=== PATIENT | female | born 1955 | race Caucasian/White ===

== ENCOUNTER → 2017-11-28 11:53 | Outpatient (CLI) | payer OTHER, SELFPAY ==
--- NOTE | 2017-11-28 11:58 | US_ITS ---
STUDY: ULTRASOUND BREAST - RIGHT REASON FOR EXAM: Female, 61 years old. Abnormal screening mammogram. TECHNIQUE: Axial and longitudinal images of the RIGHT breast were performed with a high resolution ultrasound transducer. COMPARISON: Comparison is made with prior mammogram dated November 28, 2017 and outside examination dated May 24, 2017. FINDINGS: RIGHT Breast: There is an 8 mm x 6 mm x 5 mm hypoechoic irregular nodular density which is tolerated then wide adjacent o'clock position in the breast at 3 cm from nipple. A biopsy recommended. IMPRESSION: Suspicious 8 mm x 6 mm x 5 mm irregular nodule at the 7:00 position breast at 3 cm from the nipple. Biopsy is recommended. ASSESSMENT CATEGORY: BIRADS Category 4: Suspicious - Biopsy Should Be Considered. A letter regarding these results will be sent to the patient by the facility within 30 days. Electronically Signed: Bryan Aguila MD at 14:28 EST Tel [phone], Service support , STUDY: ULTRASOUND BREAST - LEFT REASON FOR EXAM: Female, 61 years old. Palpable mass in the left breast. Abnormal mammogram. TECHNIQUE: Axial and longitudinal images of the LEFT breast were performed with a high resolution ultrasound transducer. COMPARISON: Comparison is made with prior mammogram done earlier in the day. FINDINGS: LEFT Breast: There is evidence of a 1.3 cm x 1.1 cm x 2 cm irregular hypoechoic mass with posterior acoustical shadowing. The lesion is taller than it is wide. This is located at the 12:00 posterior breast at 3 cm from the nipple. A biopsy is recommended. US/Breast Limited Unilateral IMPRESSION: The palpable abnormality corresponds to a suspicious 1.3 cm x 2 cm x 1.1 cm mass at the 12:00 position the breast at 3 cm from nipple. A biopsy is recommended. ASSESSMENT CATEGORY: BIRADS Category 5: Highly Suggestive of Malignancy - Appropriate Action Should Be Taken. A letter regarding these results will be sent to the patient by the facility within 30 days. Electronically Signed: Bryan Aguila MD at 14:28 EST Tel [phone], Service support ,
--- NOTE | 2017-11-28 11:58 | HPBI_ITS ---
MAMMOGRAPHY - BILATERAL DIAGNOSTIC REASON FOR EXAM: Female, 61 years old. Lump in the upper outer quadrant of the left breast. PERTINENT HISTORY: Sister with breast cancer. TECHNIQUE: Digital bilateral breast damir (3D mammographic acquisition) in the CC and MLO projections. 2-D mediolateral oblique (MLO) and craniocaudad (CC) views of both breasts were obtained. CAD: Full Field Digital Mammography with Computer Added Detection was performed. COMPARISON: Comparison is made with prior examination of May 17, 2017. FINDINGS: Breast Composition: There are scattered areas of fibroglandular density. There is evidence of a 4.6 cm x 2.2 cm spiculated nodule in the superior retroareolar region of the left breast. A neoplastic process should be ruled out. This corresponds the palpable abnormality. Correlation with ultrasound is recommended. I also suspect a focal area of architectural distortion in the deep retroareolar region of the right breast. Correlation with ultrasound is recommended. No other significant abnormalities are identified. HPBI/DIAG MAMM W/CAD, BILAT IMPRESSION: The palpable abnormality corresponds to a spiculated mass in the left breast as described. Focal area of architectural distortion is seen in the right breast. Correlation with ultrasound of both breasts is recommended for further evaluation. ASSESSMENT CATEGORY: BIRADS Category 0: Incomplete. Need additional imaging evaluation. A letter regarding these results will be sent to the patient by the facility within 30 days. Approximately 10% of breast cancers are not detected by mammography. A normal mammogram should not delay biopsy of a clinically suspicious abnormality. Electronically Signed: Bryan Aguila MD at 14:12 EST Tel [phone], Service support ,
== END ==
PROVIDERS: Family Provider Family Medicine; PCP Family Medicine; Visit Provider Family Medicine
DX: N63.21 Unspecified lump in the left breast, upper outer quadrant (principal)
CPT/HCPCS: 76642; 77062; 77066; G0279

== ENCOUNTER → 2017-11-30 08:27 | Outpatient (CLI) | payer OTHER, SELFPAY ==
--- NOTE | 2017-11-30 | IMM_PTH ---
PATIENT: KODI POWELL LOC: [facility] U#:[id number] AGE/SX: 69/F ROOM: RE11/30/[address]: Dr. Boone Lacey MD : 1955 BED: DIS: SPEC #: [id number] RECD: 12/03/17 11:36 STATUS: MAIKEL REBere #: [id number] MARCY: 11/30/17 00:[address]: Boone Lacey DEPT: IMMUNOHISTOCHEMISTRY RECD BY: Sammie Montgomery Tissues: Left breast, NOS Procedures: CALPONIN-1 (add) E-CAD (add) HER2 ROSEANN (add) KI-67 (add) P53 (add) DC (add) P40 (add) ER (initial) PHYSICIAN & INSTITUTION [place] [id number] SPECIMEN INFORMATION: Tissue Source: Left breast core tissue Clinical Info: Left breast mass Specimen Number: [id number] CPT code: 40218, 96765 x6, 54294 x3 METHODOLOGY: Deparaffinized sections of prefer/formalin-fixed tissue or PAP/DQ stained slides are incubated with monoclonal/polyclonal antibodies/oligonucleotide probes. Localization is made via biotin free immunoperoxidase method. Appropriate controls are performed and reacted as expected. Results on target cell population are indicated in the following table: RESULTS: ANTIBODY / CLONE RESULT P53 (DO-7) positive, 2% dim Ki-67 (30-9) positive, 3% CK8 ([id number]) positive CK5-6 (D5 & 1684) negative Calponin-1 (SR630Y) negative P40 (BC28) negative E-Cad (ECH-6) positive MORPHOMETRIC ANALYSIS ER (clone 6F11) >95% DC (clone 16/1E2) >95% Her-2Neu (clone CB11) 0 The prognostic test for HER2 is performed on formalin-fixed paraffin embedded tissue. A 3+ (positive) staining pattern is defined as intense, homogeneous, complete, circumferential membranous staining in >10% of contiguous tumor cells. A similar weak (2+) staining pattern is interpreted as equivocal. DEAN follow-up testing is recommended for all equivocal cases. Positivity/negativity for ER/DC is reported if > or < 1% of the tumor cells are immuno- reactive, respectively. The ASCO/CAP criteria is used for scoring. Reference: Journal of Clinical Oncology, 2013; 31:1352-4445 & 2010; 16:5389-6670. Duration of fixation: 59.5 Hrs; Sample Adequate: Yes. These assays have not been validated on decalcified tissues. Results should be interpreted with caution given the likelihood of false negativity on decalcified specimens. These tests were developed and their performance characteristics determined by [facility]. They may not have been cleared or approved by the U.S. Food and Drug Administration. The FDA has determined that such clearance or approval is not necessary. INTERPRETATION: Left breast, core biopsy: Invasive ductal carcinoma, nuclear grade 2. Positive for estrogen receptors (favorable prognostic indicator). Positive for progesterone receptors (favorable prognostic indicator). Negative for overexpression of WAZ1daa. AM:flash 12/03/17
--- NOTE | 2017-11-30 07:45 | BRBX_PTH ---
PATIENT: KODI POWELL LOC: [facility] U#:[id number] AGE/SX: 69/F ROOM: RE11/30/[address]: Dr. Boone Lacey MD : 1955 BED: DIS: SPEC #: [id number] RECD: 11/30/17 10:09 STATUS: MAIKEL CLARK #: [id number] MARCY: 11/30/17 07:[address]: Chris Veliz DEPT: SURGICAL PATHOLOGY RECD BY: Sammie Montgomery ENTERED: 11/30/17 15:50 SP TYPE: BREAST BX OTHR DR: Dr. Boone Lacey MD Tissues: Left breast, NOS Procedures: Surgery Specimen Level IV Comments: @ Ordering doctor for SUIV edited from to @ by GERMANIA at 11/30/17 155 @ Submitting doctor edited from to @ by GERMANIA at 11/30/17 1551 HEADER OPERATION: Left breast core biopsy PRE-OP DIAGNOSIS: Left breast mass TISSUE SUBMITTED: Left breast core tissue ISCHEMIC TIME: <1 minute FIXATION TIME: 59.5 hours MICROSCOPIC DIAGNOSIS Left breast, core biopsy: Invasive ductal carcinoma with the following characteristics: Maximal length - 9 mm Nuclear Grade ? 2 Other findings ? focal ductal carcinoma in situ, solid with grade 2 nuclei. AM:flash 12/03/17 COMMENT ER/ND/Qsw5yxd studies are being performed on sections of tumor and the results from this study will be reported separately ([id number]). MICROSCOPIC DESCRIPTION Slides are reviewed. GROSS DESCRIPTION Received in fixative is one container labeled with the patient's name and designated left breast. The specimen consists of multiple irregular and elongated fragments of fabian-white soft tissue that in aggregate measure 1 x 0.3 x 0.1 cm. The specimen is totally submitted in one cassette. / AM:flash 11/30/17 TC:0 CPT: 37250
[2017-11-30 07:46] VITALS: BP 138/94; BMI 40.6
[2017-11-30 10:14] LABS: Absolute Lymphocyte Count 2.16 X10^3/ul (0.83-4.51); Basophil# 0.04 X10^3/uL; Basophil% 0.5 % (0-1); Eosinophils% 5.5 % (0-5); Hematocrit 43.2 % (37-47); Lymphocyte # 2.16 X10^3/ul (4.0); Lymphocyte % 29.6 % (19-41); Mean Corp Hgb Conc 32.4 g/gl (32-36); Mean Corpuscular Volume 98.9 fL (81-99); Mean Platelet Vol. 10.1 fl (6.2-12.0); Monocyte# 0.73 X10^3/uL; Neutrophil # 3.95 X10^3/uL (2.7-7.7); Neutrophil % 54.3 % (47-70); POSITIVE COUNT NO; POSITIVE DIFFERENTIAL NO; POSITIVE MORPHOLOGY NO; Platelet Count 217 K/mm3 (150-450); RBC Distribution Width CV 13.2 % (11.6-14.6); RBC Distribution Width SD 47.7 fl (35.1-43.9); Red Blood Count 4.37 M/mm3 (4.2-5.4); White Blood Count 7.3 K/mm3 (4.4-11.0)
[2017-11-30 10:47] LABS: ALB/GLOB Ratio 0.9 RATIO (0.9-2.4); AST(SGOT) 20 U/L (15-37); Alanine Aminotransfer ALT/SGPT 32 U/L (13-56); Albumin, Serum 3.3 g/dL (3.2-5.0); Alkaline Phosphatase 73 U/L (45-117); Anion Gap 10 (5-15); BUN 24 mg/dL (7-18); BUN/Creat Ratio 23.5 RATIO (10-20); Calcium,Total 8.6 mg/dL (8.5-10.1); Chloride 102 mmol/L (98-107); Cholesterol 121 mg/dL (200); Creatinine, Serum 1.02 mg/dL (0.55-1.02); EST Glomerular Filtration Rate 58 mL/min (>60); Est Glom Filt Rate - Afr Amer 70 mL/min (>60); Globulin 3.8 g/dL (2.2-4.2); Glucose 143 mg/dL (74-106); High Density Lipoprotein 39 mg/dL; Potassium 4.3 mmol/L (3.5-5.1); Protein, Total 7.1 g/dL (6.4-8.2); Sodium Level 140 mmol/L (136-145); Thyroid Stim Hormone (TSH) 1.16 uIU/mL (0.358-3.74); Triglycerides 131 mg/dL; Very Low Density Lipoprotein 26 mg/dL (5-40)
[2017-11-30 10:48] LABS: Hemoglobin A1c 6.9 % (4.2-6.3)
== END ==
PROVIDERS: Family Provider Family Medicine; PCP Family Medicine; Visit Provider Family Medicine
DX: E11.9 Type 2 diabetes mellitus without complications (principal); E78.5 Hyperlipidemia, unspecified; E03.9 Hypothyroidism, unspecified; N63.20 Unspecified lump in the left breast, unspecified quadrant
CPT/HCPCS: 36415; 80053; 80061; 83036; 84443; 85025; 88305; 88341; 88342

== ENCOUNTER → 2017-12-05 13:18 | Outpatient (CLI) | payer OTHER, SELFPAY ==
[2017-11-30 07:46] VITALS: BP 138/94; BMI 40.6
--- NOTE | 2017-12-05 | BRBX_PTH ---
PATIENT: KODI POWELL LOC: U#:[id number] AGE/SX: 69/F ROOM: RE12/05/[address]: Dr. Chris Veliz MD : 1955 BED: DIS: SPEC #: [id number] RECD: 12/05/17 14:39 STATUS: MAIKEL LEESBere #: [id number] MARCY: 12/05/17 00:[address]: Chris Veliz DEPT: SURGICAL PATHOLOGY RECD BY: Yogesh Hoyos ENTERED: 12/05/17 14:39 SP TYPE: BREAST BX OTHR DR: Dr. Boone Lacey MD Tissues: Right breast, NOS Procedures: Surgery Specimen Level IV HEADER OPERATION: Ultrasound-guided right breast biopsy PRE-OP DIAGNOSIS: Abnormal ultrasound 7 o?clock right TISSUE SUBMITTED: Right breast ISCHEMIC TIME: 60 seconds FIXATION TIME: 5.5 hours MICROSCOPIC DIAGNOSIS Right breast, ultrasound-guided needle core biopsy: Invasive ductal carcinoma: Maximal length ? 2.5mm Nuclear grade ? 1/3 Ductal carcinoma in situ. AM:flash 12/12/17 COMMENT This case was reviewed in consultation with Dr. Hernandez of [employer]. The complete consultative report is viewable in patient?s EMR. Immunohistochemistry study ([id number]) supports the above diagnosis. This case was discussed with Dr. Veliz 12/10/[address] Brown. Case has been reviewed in consultation with Dr. Aiken who concurs with the above diagnosis. IDC:SJ MICROSCOPIC DESCRIPTION Two minute foci of invasive ductal carcinoma are present. The largest focus measures 2.5 mm in greatest length. GROSS DESCRIPTION Received in fixative is one container labeled with the patient's name and designated right breast. The specimen consists of multiple irregular and elongated fragments of yellow-white soft tissue that in aggregate measure 2 x 1 x 0.1 cm. The specimen is totally submitted in one cassette. / AM:flash 12/05/17 TC:0 CPT: 41192
--- NOTE | 2017-12-05 | IMM_PTH ---
PATIENT: KODI POWELL LOC: U#:[id number] AGE/SX: 69/F ROOM: RE12/05/[address]: Dr. Chris Veliz MD : 1955 BED: DIS: SPEC #: [id number] RECD: 12/06/17 12:57 STATUS: MAIKEL REBere #: [id number] MARCY: 12/05/17 00:[address]: Chris Veliz DEPT: IMMUNOHISTOCHEMISTRY RECD BY: Sammie Montgomery ENTERED: 12/06/17 12:58 SP TYPE: IMMUNO OTHR DR: Dr. Boone Lacey MD Tissues: Right breast, NOS Procedures: CALPONIN-1 (add) CK5-6 (add) CK8 (add) E-CAD (add) HER2 ROSEANN (add) KI-67 (add) P53 (add) MS (add) P40 (add) ER (initial) PHYSICIAN & INSTITUTION [place] [id number] SPECIMEN INFORMATION: Tissue Source: Right breast Clinical Info: Abnormal ultrasound 7 o?clock right Specimen Number: [id number] CPT code: 99573, 85595 x6, 06461 x3 METHODOLOGY: Deparaffinized sections of prefer/formalin-fixed tissue or PAP/DQ stained slides are incubated with monoclonal/polyclonal antibodies/oligonucleotide probes. Localization is made via biotin free immunoperoxidase method. Appropriate controls are performed and reacted as expected. Results on target cell population are indicated in the following table: RESULTS: ANTIBODY / CLONE RESULT P53 (DO-7) negative Ki-67 (30-9) positive, low CK8 (87pvlgO59) positive CK5-6 (D5 & 1684) negative Calponin-1 (IE351G) negative P40 (BC28) negative E-Cad (ECH-6) positive MORPHOMETRIC ANALYSIS ER (clone 6F11) >95%, strong MS (clone 16/1E2) >85%, strong Her-2Neu (clone CB11) 0 The prognostic test for HER2 is performed on formalin-fixed paraffin embedded tissue. A 3+ (positive) staining pattern is defined as intense, homogeneous, complete, circumferential membranous staining in >10% of contiguous tumor cells. A similar weak (2+) staining pattern is interpreted as equivocal. DEAN follow-up testing is recommended for all equivocal cases. Positivity/negativity for ER/MS is reported if > or < 1% of the tumor cells are immuno- reactive, respectively. The ASCO/CAP criteria is used for scoring. Reference: Journal of Clinical Oncology, 2013; 31:0793-5579 & 2010; 16:1499-6771. Duration of fixation: 5.5 Hrs; Sample Adequate: Yes. These assays have not been validated on decalcified tissues. Results should be interpreted with caution given the likelihood of false negativity on decalcified specimens. These tests were developed and their performance characteristics determined by [facility]. They may not have been cleared or approved by the U.S. Food and Drug Administration. The FDA has determined that such clearance or approval is not necessary. INTERPRETATION: Right breast, ultrasound-guided biopsy: Two minute foci of invasive ductal carcinoma, nuclear grade 1/3. Positive for estrogen receptors (favorable prognostic indicator). Positive for progesterone receptors (favorable prognostic indicator). Negative for overexpression of AGF1hzk. AM:flash 12/12/17 Case has been reviewed in consultation with Dr. Aiken who concurs with the above diagnosis. IDC:SJ
--- NOTE | 2017-12-05 13:22 | US_ITS ---
STUDY: ULTRASOUND BREAST - RIGHT REASON FOR EXAM: Female, 61 years old. Ultrasound guided biopsy of the right breast lesion. TECHNIQUE: Axial and longitudinal images of the RIGHT breast were performed with a high resolution ultrasound transducer. COMPARISON: Comparison is made with prior ultrasound dated November 28, 2017. FINDINGS: RIGHT Breast: The surgeon performed core biopsies of the suspicious nodule measuring 7 mm x 4 mm x 3 mm at the 7:00 position breast at 3 cm from the nipple. US/US Breast Biopsy 1st Lesion IMPRESSION: Successful ultrasound-guided biopsy of the suspicious nodule. ASSESSMENT CATEGORY: BIRADS Category 4: Suspicious - Biopsy Should Be Considered. A letter regarding these results will be sent to the patient by the facility within 30 days. Electronically Signed: Bryan Aguila MD at 15:42 EST Tel [phone], Service support ,
--- NOTE | 2017-12-05 14:12 | PCM.OPRPT ---
Problem List (1) Abnormal mammogram of right breast Status: Acute Report of Operation Date of Procedure: 12/05/17 Pre-Operative Diagnosis: r92.8 abnormal mammogram to right breast Post-Operative Diagnosis: Same Surgery/Procedure Performed:: [id number] ultrasound-guided handheld mammotome breast biopsy right Type of Anesthesia:: Local Description of Procedure: Patient was brought into the ultrasound suite. Ultrasound of the right breast at the 7 o'clock position revealed the lesion in question. I prepped the skin with chlorhexidine. I injected 1% lidocaine plain. I injected local posterior to the lesion. Under ultrasound guidance I directed the hand-held mammotome biopsy posterior to the lesion. Under ultrasound guidance I took numerous biopsy of the lesion. Under ultrasound guidance I placed a small titanium clip. Steri-Strips are applied sterile dressings were applied and the patient tolerated the procedure well. - Admit VTE Documentation VTE Present on Admission: No VTE Mechan Device Prophylaxis: None VTE Pharm Prophylaxis ordered?: No Reason prophylaxis not ordered:: Treatment Not Indicated
--- NOTE | 2017-12-05 14:16 | OP.PCM_ITS ---
Problem List (1) Abnormal mammogram of right breast Status: Acute Report of Operation Date of Procedure: 12/05/17 Pre-Operative Diagnosis: r92.8 abnormal mammogram to right breast Post-Operative Diagnosis: Same Surgery/Procedure Performed:: [id number] ultrasound-guided handheld mammotome breast biopsy right Type of Anesthesia:: Local Description of Procedure: Patient was brought into the ultrasound suite. Ultrasound of the right breast at the 7 o'clock position revealed the lesion in question. I prepped the skin with chlorhexidine. I injected 1% lidocaine plain. I injected local posterior to the lesion. Under ultrasound guidance I directed the hand-held mammotome biopsy posterior to the lesion. Under ultrasound guidance I took numerous biopsy of the lesion. Under ultrasound guidance I placed a small titanium clip. Steri-Strips are applied sterile dressings were applied and the patient tolerated the procedure well. - Admit VTE Documentation VTE Present on Admission: No VTE Mechan Device Prophylaxis: None VTE Pharm Prophylaxis ordered?: No Reason prophylaxis not ordered:: Treatment Not Indicated
== END ==
PROVIDERS: Family Provider Family Medicine; PCP Family Medicine; Visit Provider Surgery
DX: R92.8 Other abnormal and inconclusive findings on diagnostic imaging of breast (principal)
CPT/HCPCS: 19083; 88305; 88341; 88342

== ENCOUNTER 2017-12-28 07:21 | Observation (INO) | payer OTHER, SELFPAY ==
[2017-12-28] VITALS (27 sets, daily range): BP systolic 95–151; BP diastolic 53–79; PULSE 66–95; RESP 14–18; TEMP 36.1–36.9; O2SAT 93–100; BMI 39.9
--- NOTE | 2017-12-28 | AXNB_PTH ---
PATIENT: KODI POWELL LOC: MS3 U#:[id number] AGE/SX: 62/F ROOM: HI312 RE12/28/[address]: Dr. Chris Veliz MD : 1955 BED: 1 DIS: 12/30/2017 SPEC #: [id number] RECD: 12/28/17 08:26 STATUS: MAIKEL CLARK #: [id number] MARCY: 12/28/17 00:[address]: Chris Veliz DEPT: SURGICAL PATHOLOGY RECD BY: Sammie Montgomery ENTERED: 12/28/17 09:50 SP TYPE: AX NODE BX OTHR DR: Dr. Boone Lacey MD Tissues: A - Axillary lymph node, NOS B - Axillary lymph node, NOS C - Left breast, NOS D - Right breast, NOS E - Axilla, NOS Procedures: Frozen Section (charge) Surgery Specimen Level IV Surgery Specimen Level Frozen (no charge) HEADER OPERATION: Mastectomy, sentinel node biopsy, axillary dissection PRE-OP DIAGNOSIS: Bilateral malignant neoplasm of breast; ER positive TISSUE SUBMITTED: A ? Left sentinel node sent as FS at 8:23, B ? Right sentinel node sent as FS at 9:07, C ? Left breast, D ? Right breast, E ? Left axillary contents FROZEN SECTION DIAGNOSIS A. Left sentinel lymph nodes, biopsy: One out of four lymph nodes, positive for metastatic carcinoma. SJ: 12/28/17 Case has been reviewed in consultation with Dr. Brown who concurs with the above diagnosis. IDC:AM B. Right axillary sentinel lymph nodes, biopsy: Three out of three lymph nodes, negative for carcinoma. AM: 12/28/17 MICROSCOPIC DIAGNOSIS A. Left breast sentinel lymph nodes, biopsy: One out of four lymph nodes, positive for metastatic carcinoma. See comment. B. Right sentinel lymph nodes, biopsy: Three out of three lymph nodes, negative for carcinoma. C. Left breast, mastectomy: Invasive ductal carcinoma. See cancer summary below. D. Right breast, mastectomy: Invasive ductal carcinoma. Ductal carcinoma in situ. See cancer summary below. E. Left axillary contents: One out of six lymph nodes, positive for metastatic carcinoma. See comment. INVASIVE BREAST CANCER SUMMARY: (Left breast including specimen A, C & E) Specimen ? total breast (including nipple and skin). Procedure ? total mastectomy (including nipple and skin). Lymph node sampling ? sentinel lymph nodes and axillary dissection. Specimen integrity ? single intact specimen. Specimen laterality ? left breast Tumor size ? 0.5 x 0.5 cm (measured microscopically). See comment. Tumor focality ? single focus of invasive carcinoma. Macroscopic and Microscopic extent of tumor: Skin ? invasive carcinoma does not invade into the dermis or epidermis. Nipple ? ductal carcinoma in situ does not involve nipple epidermis. Skeletal muscle ? no skeletal muscle present. Ductal carcinoma in situ (DCIS) ? no ductal carcinoma in situ is present. Lobular carcinoma in situ (LCIS) ? not identified Histologic type of invasive carcinoma ? invasive ductal carcinoma (no special type). Histologic Grade ([place] grade): Glandular/tubular differentiation - score 3 Nuclear pleomorphism - score 2 Mitotic count ? score 2 Overall grade - 2 (score of 6) Margins: Margins uninvolved by invasive carcinoma. The tumor is 1.8 cm away from the closest inferior margin. Treatment effect ? response to presurgical (neoadjuvant) therapy - no known presurgical therapy. Lymph-Vascular invasion ? not identified Dermal lymph-vascular invasion - not identified Lymph nodes: Number of sentinel lymph nodes examined - 4 Total number of lymph nodes examined (sentinel and nonsentinel) - 10 Number of lymph nodes with macrometastases - 2 Number of lymph nodes with micrometastases and isolated tumor cells - 0 Size of largest metastatic deposit ? 0.6 cm (specimen E) Extranodal extension ? not identified Method of evaluation of sentinel lymph nodes - H & E, multiple levels and IHC (only in the negative lymph nodes) Distance metastasis ? not applicable Additional pathologic findings ? fibrocystic changes and intraductal hyperplasia with focal atypia. Ancillary studies - previously performed on section of tumor ([id number] / [id number]). ER ? positive (>95%) OR - positive (>95%) Her2 sun ? negative (0) Microcalcifications ? not identified Clinical history - Please make reference to previous specimen ([id number]) left breast, core biopsy with diagnosis of invasive ductal carcinoma. PATHOLOGIC STAGE: pT1b pN0 Mx INVASIVE BREAST CANCER SUMMARY: (Right breast including specimen B & D) Specimen ? total breast (including nipple and skin). Procedure ? total mastectomy (including nipple and skin). Lymph node sampling ? sentinel lymph nodes. Specimen integrity ? single intact specimen. Specimen laterality ? right breast Tumor site ? mid portion Tumor size ? 0.5 x 0.3 x 0.3 cm Tumor focality ? single focus of invasive carcinoma. Macroscopic and Microscopic extent of tumor: Skin ? invasive carcinoma does not invade into the dermis or epidermis. Nipple ? ductal carcinoma in situ does not involve nipple epidermis. Skeletal muscle ? no skeletal muscle present. Ductal carcinoma in situ (DCIS) ? ductal carcinoma in situ is present. Extensive intraductal component (EIC) ? negative Size (extent) of DCIS ? ductal carcinoma in situ comprises about 20% of the total tumor volume and is present adjacent to the invasive carcinoma. Number of blocks with DCIS ? 5 Number of blocks examined ? 12 Architectural pattern ? solid Nuclear grade ? grade 1 (low) Necrosis ? present, focal (single cell necrosis) Histologic type of invasive carcinoma ? invasive ductal carcinoma (no special type). Histologic Grade (Tania grade): Glandular/tubular differentiation - score 3 Nuclear pleomorphism - score 1 Mitotic count ? score 1 Overall grade - 1 (score of 5) Margins: Margins uninvolved by invasive carcinoma and ductal carcinoma in situ. Invasive carcinoma and ductal carcinoma in situ are 0.2 cm away from the closest posterior margin. Treatment effect ? response to presurgical (neoadjuvant) therapy - no known presurgical therapy. Lymph-Vascular invasion ? not identified Dermal lymph-vascular invasion - not identified Lymph nodes: Number of sentinel lymph nodes examined - 3 Total number of lymph nodes examined (sentinel and nonsentinel) - 3 Number of lymph nodes with macrometastases, micrometastases and isolated tumor cells - 0 Method of evaluation of sentinel lymph nodes - H & E, multiple levels and IHC Distance metastasis ? not applicable Additional pathologic findings ? intraductal hyperplasia without atypia. Ancillary studies - previously performed on section of tumor ([id number] / [id number]). ER ? positive (>95%, strong) OR - positive (>85%, strong) Her2 sun ? negative (0) Microcalcifications ? not identified Clinical history - Please make reference to previous specimen ([id number]) right breast, ultrasound-guided needle core biopsy with diagnosis of invasive ductal carcinoma. PATHOLOGIC STAGE: pT2 pN0(sn) Mx The above summary is in compliance with [employer] (CAP) Cancer Protocols Checklist and [place] Joint [employer] on Cancer (AJCC), Staging Manual, 8th Ed. SJ:flash 01/01/18 COMMENT A. The largest focus of metastasis measures 0.4 cm in greatest dimension. Extranodal extension is not seen. Immunohistochemistry for cytokeratins was performed on other three lymph nodes ([id number]) and three out of three lymph nodes are negative for metastatic carcinoma. C. The biopsy cavity measures 2.2 cm in greatest dimension; however, the invasive tumor only measures 0.5 cm in greatest dimension. The tumor in the previous core biopsy ([id number]) measured 9 mm in greatest length. Pathologic staging for tumor in the left breast is includes the size in the core biopsy. Correlation with radiologic findings is necessary for exact size of the tumor. E. The largest focus of metastasis measures 0.5 cm in greatest dimension. Extranodal extension is not seen. Case has been reviewed in consultation with Dr. Brown who concurs with the above diagnosis. IDC:AM MICROSCOPIC DESCRIPTION Slides are reviewed. GROSS DESCRIPTION A - Received fresh for frozen section consultation labeled with the patient's name is a specimen designated left breast sentinel lymph nodes. The specimen consists of an irregular fragment of fabian-yellow fibrofatty tissue measuring 7 x 4.5 x 2 cm. Dissection reveals four lymph nodes, the largest of which measures 3 cm. The lymph nodes are submitted in their entirety for frozen section consultation in six blocks as follows: 1 & 2 ? one lymph node, 3 ? one lymph node, 4 ? one lymph node, 5 & 6 ? one lymph node, serially sectioned. / AM:flash 12/28/17 B - Received fresh for frozen section consultation labeled with the patient's name is a specimen designated right sentinel lymph nodes. The specimen consists of an irregular fragment of fabian-yellow fibrofatty tissue measuring 6 x 4.5 x 2 cm. Dissection reveals three nodules resembling lymph nodes, the largest of which measures 1 cm. The lymph nodes are submitted in their entirety for frozen section consultation in three blocks as follows: 1? one lymph node, 2 ? one lymph node, 3 ? one lymph node. / AM: 12/28/17 C - Received in fixative is one container labeled with the patient's name and designated left breast. The specimen consists of a mastectomy specimen measuring 32 x 23 x 5.5 cm and containing an ellipse of skin with centrally located nipple and areola in its anterior portion measuring 23 x 8.5 cm. No cutaneous mass lesions are identified. The specimen weighs 1308 gm. The posterior surface does not contain skeletal muscle. The specimen is differentially inked as follows: superior ? blue, inferior ? green, and posterior ? black. Serial sections reveal a firm, fabian-white mass measuring 2.2 x 1.5 x 1.2 cm. The mass is located 1.8 cm from its closest (inferior) margin of excision. The remainder of the breast parenchyma is yellow and contains focal white fibrous streaks. No other mass lesions are identified. Lifestyle Coordinator sections are submitted in ten cassettes as follows: 1 ? nipple, 2 ? perpendicular superior, inferior and posterior margins, 3 ? perpendicular medial margin, 4 ? perpendicular lateral margin, 5 & 6 ? tumor, totally submitted, 7-10 ? client service representative sections of uninvolved breast parenchyma. / AM: 12/28/17 D - Received in fixative is one container labeled with the patient's name and designated right breast. The specimen consists of a mastectomy specimen measuring 32 x 22 x 8 cm and containing an ellipse of skin with centrally located nipple and areola in its anterior portion measuring 24 x 9 cm. No cutaneous mass lesions are identified. The specimen weighs 1513 gm. The posterior surface does not contain skeletal muscle. The specimen is differentially inked as follows: superior ? blue, inferior ? green, and posterior ? black. Serial sections reveal a firm, fabian-white mass in deep mid portion of breast measuring 3.5 x 3 x 3 cm. The mass is located 0.2 cm from its closest (posterior) margin of excision. The remainder of the breast parenchyma is fabian-yellow and interrupted focally by white fibrous streaks. No other mass lesions are identified. Lifestyle Coordinator sections are submitted in 12 cassettes as follows: 1 ? nipple and areola, 2 ? perpendicular superior and inferior margins, 3 ? perpendicular medial margin, 4 ? perpendicular lateral margin, 5 - perpendicular posterior margin with adjacent tumor, 6-9 ? tumor, 10-12 ? uninvolved breast parenchyma. / AM:flash 12/28/17 E - Received in fixative is one container labeled with the patient's name and designated left axillary contents. The specimen consists of an irregular fragment of fabian-yellow fibrofatty tissue measuring 10 x 7 x 1.5 cm. Dissection reveals multiple nodules ranging in size from 0.2 to 2.2 cm in greatest dimension. The nodules are submitted in their entirety as follows: 1 ? one nodule bisected, 2 ? one nodule bisected, 3 ? one nodule bisected, 4 ? three nodules. / AM:flash 12/28/17 TC:0 CPT:
--- NOTE | 2017-12-28 | AXNB_PTH ---
PATIENT: KODI POWELL LOC: MS3 U#:[id number] AGE/SX: 62/F ROOM: OR312 RE12/28/[address]: Dr. Chris Veliz MD : 1955 BED: 1 DIS: 12/30/2017 SPEC #: [id number] RECD: 12/28/17 08:26 STATUS: MAIKEL CLARK #: [id number] MARCY: 12/28/17 00:[address]: Chris Veliz DEPT: SURGICAL PATHOLOGY RECD BY: Sammie Montgomery ENTERED: 12/28/17 09:50 SP TYPE: AX NODE BX OTHR DR: Dr. Boone Lacey MD Tissues: A - Axillary lymph node, NOS B - Axillary lymph node, NOS C - Left breast, NOS D - Right breast, NOS E - Axilla, NOS Procedures: Frozen Section (charge) Frozen Section Add'l ([facility]) Surgery Specimen Level V Frozen (no charge) HEADER OPERATION: Mastectomy, sentinel node biopsy, axillary dissection PRE-OP DIAGNOSIS: Bilateral malignant neoplasm of breast; ER positive TISSUE SUBMITTED: A ? Left sentinel node sent as FS at 8:23, B ? Right sentinel node sent as FS at 9:07, C ? Left breast, D ? Right breast, E ? Left axillary contents FROZEN SECTION DIAGNOSIS A. Left sentinel lymph nodes, biopsy: One out of four lymph nodes, positive for metastatic carcinoma. SJ: 12/28/17 Case has been reviewed in consultation with Dr. Brown who concurs with the above diagnosis. IDC:AM B. Right axillary sentinel lymph nodes, biopsy: Three out of three lymph nodes, negative for carcinoma. AM: 12/28/17 MICROSCOPIC DIAGNOSIS A. Left breast sentinel lymph nodes, biopsy: One out of four lymph nodes, positive for metastatic carcinoma. See comment. B. Right sentinel lymph nodes, biopsy: Three out of three lymph nodes, negative for carcinoma. C. Left breast, mastectomy: Invasive ductal carcinoma. See cancer summary below. D. Right breast, mastectomy: Invasive ductal carcinoma. Ductal carcinoma in situ. See cancer summary below. E. Left axillary contents: One out of six lymph nodes, positive for metastatic carcinoma. See comment. INVASIVE BREAST CANCER SUMMARY: (Left breast including specimen A, C & E) Specimen ? total breast (including nipple and skin). Procedure ? total mastectomy (including nipple and skin). Lymph node sampling ? sentinel lymph nodes and axillary dissection. Specimen integrity ? single intact specimen. Specimen laterality ? left breast Tumor size ? 0.5 x 0.5 cm (measured microscopically). See comment. Tumor focality ? single focus of invasive carcinoma. Macroscopic and Microscopic extent of tumor: Skin ? invasive carcinoma does not invade into the dermis or epidermis. Nipple ? ductal carcinoma in situ does not involve nipple epidermis. Skeletal muscle ? no skeletal muscle present. Ductal carcinoma in situ (DCIS) ? no ductal carcinoma in situ is present. Lobular carcinoma in situ (LCIS) ? not identified Histologic type of invasive carcinoma ? invasive ductal carcinoma (no special type). Histologic Grade ([place] grade): Glandular/tubular differentiation - score 3 Nuclear pleomorphism - score 2 Mitotic count ? score 2 Overall grade - 2 (score of 6) Margins: Margins uninvolved by invasive carcinoma. The tumor is 1.8 cm away from the closest inferior margin. Treatment effect ? response to presurgical (neoadjuvant) therapy - no known presurgical therapy. Lymph-Vascular invasion ? not identified Dermal lymph-vascular invasion - not identified Lymph nodes: Number of sentinel lymph nodes examined - 4 Total number of lymph nodes examined (sentinel and nonsentinel) - 10 Number of lymph nodes with macrometastases - 2 Number of lymph nodes with micrometastases and isolated tumor cells - 0 Size of largest metastatic deposit ? 0.6 cm (specimen E) Extranodal extension ? not identified Method of evaluation of sentinel lymph nodes - H & E, multiple levels and IHC (only in the negative lymph nodes) Distance metastasis ? not applicable Additional pathologic findings ? fibrocystic changes and intraductal hyperplasia with focal atypia. Ancillary studies - previously performed on section of tumor ([id number] / [id number]). ER ? positive (>95%) ME - positive (>95%) Her2 sun ? negative (0) Microcalcifications ? not identified Clinical history - Please make reference to previous specimen ([id number]) left breast, core biopsy with diagnosis of invasive ductal carcinoma. PATHOLOGIC STAGE: pT1b pN1a Mx INVASIVE BREAST CANCER SUMMARY: (Right breast including specimen B & D) Specimen ? total breast (including nipple and skin). Procedure ? total mastectomy (including nipple and skin). Lymph node sampling ? sentinel lymph nodes. Specimen integrity ? single intact specimen. Specimen laterality ? right breast Tumor site ? mid portion Tumor size ? 0.5 x 0.3 x 0.3 cm Tumor focality ? single focus of invasive carcinoma. Macroscopic and Microscopic extent of tumor: Skin ? invasive carcinoma does not invade into the dermis or epidermis. Nipple ? ductal carcinoma in situ does not involve nipple epidermis. Skeletal muscle ? no skeletal muscle present. Ductal carcinoma in situ (DCIS) ? ductal carcinoma in situ is present. Extensive intraductal component (EIC) ? negative Size (extent) of DCIS ? ductal carcinoma in situ comprises about 20% of the total tumor volume and is present adjacent to the invasive carcinoma. Number of blocks with DCIS ? 5 Number of blocks examined ? 12 Architectural pattern ? solid Nuclear grade ? grade 1 (low) Necrosis ? present, focal (single cell necrosis) Histologic type of invasive carcinoma ? invasive ductal carcinoma (no special type). Histologic Grade ([place]ania grade): Glandular/tubular differentiation - score 3 Nuclear pleomorphism - score 1 Mitotic count ? score 1 Overall grade - 1 (score of 5) Margins: Margins uninvolved by invasive carcinoma and ductal carcinoma in situ. Invasive carcinoma and ductal carcinoma in situ are 0.2 cm away from the closest posterior margin. Treatment effect ? response to presurgical (neoadjuvant) therapy - no known presurgical therapy. Lymph-Vascular invasion ? not identified Dermal lymph-vascular invasion - not identified Lymph nodes: Number of sentinel lymph nodes examined - 3 Total number of lymph nodes examined (sentinel and nonsentinel) - 3 Number of lymph nodes with macrometastases, micrometastases and isolated tumor cells - 0 Method of evaluation of sentinel lymph nodes - H & E, multiple levels and IHC Distance metastasis ? not applicable Additional pathologic findings ? intraductal hyperplasia without atypia. Ancillary studies - previously performed on section of tumor ([id number] / [id number]). ER ? positive (>95%, strong) ME - positive (>85%, strong) Her2 sun ? negative (0) Microcalcifications ? not identified Clinical history - Please make reference to previous specimen ([id number]) right breast, ultrasound-guided needle core biopsy with diagnosis of invasive ductal carcinoma. PATHOLOGIC STAGE: pT2 pN0(sn) Mx The above summary is in compliance with [employer] [employer] (CAP) Cancer Protocols Checklist and [place] Joint Committee on Cancer (AJCC), Staging Manual, 8th Ed. SJ:flash 01/01/18 COMMENT A. The largest focus of metastasis measures 0.4 cm in greatest dimension. Extranodal extension is not seen. Immunohistochemistry for cytokeratins was performed on other three lymph nodes ([id number]) and three out of three lymph nodes are negative for metastatic carcinoma. C. The biopsy cavity measures 2.2 cm in greatest dimension; however, the invasive tumor only measures 0.5 cm in greatest dimension. The tumor in the previous core biopsy ([id number]) measured 9 mm in greatest length. Pathologic staging for tumor in the left breast is includes the size in the core biopsy. Correlation with radiologic findings is necessary for exact size of the tumor. E. The largest focus of metastasis measures 0.5 cm in greatest dimension. Extranodal extension is not seen. Case has been reviewed in consultation with Dr. Brown who concurs with the above diagnosis. IDC:AM MICROSCOPIC DESCRIPTION Slides are reviewed. GROSS DESCRIPTION A - Received fresh for frozen section consultation labeled with the patient's name is a specimen designated left breast sentinel lymph nodes. The specimen consists of an irregular fragment of fabian-yellow fibrofatty tissue measuring 7 x 4.5 x 2 cm. Dissection reveals four lymph nodes, the largest of which measures 3 cm. The lymph nodes are submitted in their entirety for frozen section consultation in six blocks as follows: 1 & 2 ? one lymph node, 3 ? one lymph node, 4 ? one lymph node, 5 & 6 ? one lymph node, serially sectioned. / AM:flash 12/28/17 B - Received fresh for frozen section consultation labeled with the patient's name is a specimen designated right sentinel lymph nodes. The specimen consists of an irregular fragment of fabian-yellow fibrofatty tissue measuring 6 x 4.5 x 2 cm. Dissection reveals three nodules resembling lymph nodes, the largest of which measures 1 cm. The lymph nodes are submitted in their entirety for frozen section consultation in three blocks as follows: 1? one lymph node, 2 ? one lymph node, 3 ? one lymph node. / AM: 12/28/17 C - Received in fixative is one container labeled with the patient's name and designated left breast. The specimen consists of a mastectomy specimen measuring 32 x 23 x 5.5 cm and containing an ellipse of skin with centrally located nipple and areola in its anterior portion measuring 23 x 8.5 cm. No cutaneous mass lesions are identified. The specimen weighs 1308 gm. The posterior surface does not contain skeletal muscle. The specimen is differentially inked as follows: superior ? blue, inferior ? green, and posterior ? black. Serial sections reveal a firm, fabian-white mass measuring 2.2 x 1.5 x 1.2 cm. The mass is located 1.8 cm from its closest (inferior) margin of excision. The remainder of the breast parenchyma is yellow and contains focal white fibrous streaks. No other mass lesions are identified. Automobile Mechanic Motor sections are submitted in ten cassettes as follows: 1 ? nipple, 2 ? perpendicular superior, inferior and posterior margins, 3 ? perpendicular medial margin, 4 ? perpendicular lateral margin, 5 & 6 ? tumor, totally submitted, 7-10 ? retail customer service representative sections of uninvolved breast parenchyma. / AM: 12/28/17 D - Received in fixative is one container labeled with the patient's name and designated right breast. The specimen consists of a mastectomy specimen measuring 32 x 22 x 8 cm and containing an ellipse of skin with centrally located nipple and areola in its anterior portion measuring 24 x 9 cm. No cutaneous mass lesions are identified. The specimen weighs 1513 gm. The posterior surface does not contain skeletal muscle. The specimen is differentially inked as follows: superior ? blue, inferior ? green, and posterior ? black. Serial sections reveal a firm, fabian-white mass in deep mid portion of breast measuring 3.5 x 3 x 3 cm. The mass is located 0.2 cm from its closest (posterior) margin of excision. The remainder of the breast parenchyma is fabian-yellow and interrupted focally by white fibrous streaks. No other mass lesions are identified. Automobile Mechanic Motor sections are submitted in 12 cassettes as follows: 1 ? nipple and areola, 2 ? perpendicular superior and inferior margins, 3 ? perpendicular medial margin, 4 ? perpendicular lateral margin, 5 - perpendicular posterior margin with adjacent tumor, 6-9 ? tumor, 10-12 ? uninvolved breast parenchyma. / AM:flash 12/28/17 E - Received in fixative is one container labeled with the patient's name and designated left axillary contents. The specimen consists of an irregular fragment of fabian-yellow fibrofatty tissue measuring 10 x 7 x 1.5 cm. Dissection reveals multiple nodules ranging in size from 0.2 to 2.2 cm in greatest dimension. The nodules are submitted in their entirety as follows: 1 ? one nodule bisected, 2 ? one nodule bisected, 3 ? one nodule bisected, 4 ? three nodules. / AM:flash 12/28/17 TC:0 CPT: 29892 x5, 59463 x2, 20554 x7
--- NOTE | 2017-12-28 | IMM_PTH ---
PATIENT: KODI POWELL LOC: MS3 U#:[id number] AGE/SX: 62/F ROOM: MS312 RE12/28/[address]: Dr. Chris Veliz MD : 1955 BED: 1 DIS: 12/30/2017 SPEC #: [id number] RECD: 12/31/17 14:57 STATUS: MAIKEL REQ #: [id number] MARCY: 12/28/17 00:[address]: Chris Veliz DEPT: IMMUNOHISTOCHEMISTRY RECD BY: Sammie Montgomery ENTERED: 12/31/17 14:59 SP TYPE: IMMUNO OTHR DR: Dr. Boone Lacey MD Tissues: A - Axillary lymph node, NOS B - Axillary lymph node, NOS Procedures: CK7 (add) Pankeratin (initial) Pankeratin (add) PHYSICIAN & INSTITUTION [place] [id number] SPECIMEN INFORMATION: Tissue Source: A ? Left sentinel nodes, B ? Right sentinel nodes Clinical Info: Bilateral malignant neoplasm of breast; ER positive Specimen Number: [id number] A3, A4, A5, A6, B1, B2, B3 CPT code: 06931 x2, 29322 x12 METHODOLOGY: Deparaffinized sections of prefer/formalin-fixed tissue or PAP/DQ stained slides are incubated with monoclonal/polyclonal antibodies/oligonucleotide probes. Localization is made via biotin free immunoperoxidase method. Appropriate controls are performed and reacted as expected. Results on target cell population are indicated in the following table: RESULTS: ANTIBODY / CLONE RESULT Block A3 AE1-3 (AE1/AE3/PCK26) negative CK7 (OV-TL12/30) negative Block A4 AE1-3 (AE1/AE3/PCK26) negative CK7 (OV-TL12/30) negative Block A5 AE1-3 (AE1/AE3/PCK26) negative CK7 (OV-TL12/30) negative Block A6 AE1-3 (AE1/AE3/PCK26) negative CK7 (OV-TL12/30) negative Block B1 AE1-3 (AE1/AE3/PCK26) negative CK7 (OV-TL12/30) negative Block B2 AE1-3 (AE1/AE3/PCK26) negative CK7 (OV-TL12/30) negative Block B3 AE1-3 (AE1/AE3/PCK26) negative CK7 (OV-TL12/30) negative These tests were developed and their performance characteristics determined by [facility]. They may not have been cleared or approved by the U.S. Food and Drug Administration. The FDA has determined that such clearance or approval is not necessary. INTERPRETATION: A. Left sentinel nodes, biopsy: Three out of three lymph nodes, negative for metastatic carcinoma. B. Right sentinel nodes, biopsy: Three out of three lymph nodes, negative for metastatic carcinoma. SJ:flash 01/01/18
--- NOTE | 2017-12-28 | AXNB_PTH ---
PATIENT: KODI POWELL LOC: MS3 U#:[id number] AGE/SX: 62/F ROOM: WA312 RE12/28/[address]: Dr. Chris Veliz MD : 1955 BED: 1 DIS: 12/30/2017 SPEC #: [id number] RECD: 12/28/17 08:26 STATUS: MAIKEL CLARK #: [id number] MARCY: 12/28/17 00:[address]: Chris Veliz DEPT: SURGICAL PATHOLOGY RECD BY: Sammie Montgomery ENTERED: 12/28/17 09:50 SP TYPE: AX NODE BX OTHR DR: Dr. Boone Lacey MD Tissues: A - Axillary lymph node, NOS B - Axillary lymph node, NOS C - Left breast, NOS D - Right breast, NOS E - Axilla, NOS Procedures: Frozen Section (charge) Frozen Section Add'l ([facility]) Surgery Specimen Level V Frozen (no charge) HEADER OPERATION: Mastectomy, sentinel node biopsy, axillary dissection PRE-OP DIAGNOSIS: Bilateral malignant neoplasm of breast; ER positive TISSUE SUBMITTED: A ? Left sentinel node sent as FS at 8:23, B ? Right sentinel node sent as FS at 9:07, C ? Left breast, D ? Right breast, E ? Left axillary contents FROZEN SECTION DIAGNOSIS A. Left sentinel lymph nodes, biopsy: One out of four lymph nodes, positive for metastatic carcinoma. SJ: 12/28/17 Case has been reviewed in consultation with Dr. Brown who concurs with the above diagnosis. IDC:AM B. Right axillary sentinel lymph nodes, biopsy: Three out of three lymph nodes, negative for carcinoma. AM: 12/28/17 MICROSCOPIC DIAGNOSIS A. Left breast sentinel lymph nodes, biopsy: One out of four lymph nodes, positive for metastatic carcinoma. See comment. B. Right sentinel lymph nodes, biopsy: Three out of three lymph nodes, negative for carcinoma. C. Left breast, mastectomy: Invasive ductal carcinoma. See cancer summary below. D. Right breast, mastectomy: Invasive ductal carcinoma. Ductal carcinoma in situ. See cancer summary below. E. Left axillary contents: One out of six lymph nodes, positive for metastatic carcinoma. See comment. INVASIVE BREAST CANCER SUMMARY: (Left breast including specimen A, C & E) Specimen ? total breast (including nipple and skin). Procedure ? total mastectomy (including nipple and skin). Lymph node sampling ? sentinel lymph nodes and axillary dissection. Specimen integrity ? single intact specimen. Specimen laterality ? left breast Tumor size ? 0.5 x 0.5 cm (measured microscopically). See comment. Tumor focality ? single focus of invasive carcinoma. Macroscopic and Microscopic extent of tumor: Skin ? invasive carcinoma does not invade into the dermis or epidermis. Nipple ? ductal carcinoma in situ does not involve nipple epidermis. Skeletal muscle ? no skeletal muscle present. Ductal carcinoma in situ (DCIS) ? no ductal carcinoma in situ is present. Lobular carcinoma in situ (LCIS) ? not identified Histologic type of invasive carcinoma ? invasive ductal carcinoma (no special type). Histologic Grade ([place] grade): Glandular/tubular differentiation - score 3 Nuclear pleomorphism - score 2 Mitotic count ? score 2 Overall grade - 2 (score of 6) Margins: Margins uninvolved by invasive carcinoma. The tumor is 1.8 cm away from the closest inferior margin. Treatment effect ? response to presurgical (neoadjuvant) therapy - no known presurgical therapy. Lymph-Vascular invasion ? not identified Dermal lymph-vascular invasion - not identified Lymph nodes: Number of sentinel lymph nodes examined - 4 Total number of lymph nodes examined (sentinel and nonsentinel) - 10 Number of lymph nodes with macrometastases - 2 Number of lymph nodes with micrometastases and isolated tumor cells - 0 Size of largest metastatic deposit ? 0.6 cm (specimen E) Extranodal extension ? not identified Method of evaluation of sentinel lymph nodes - H & E, multiple levels and IHC (only in the negative lymph nodes) Distance metastasis ? not applicable Additional pathologic findings ? fibrocystic changes and intraductal hyperplasia with focal atypia. Ancillary studies - previously performed on section of tumor ([id number] / [id number]). ER ? positive (>95%) TN - positive (>95%) Her2 sun ? negative (0) Microcalcifications ? not identified Clinical history - Please make reference to previous specimen ([id number]) left breast, core biopsy with diagnosis of invasive ductal carcinoma. PATHOLOGIC STAGE: pT1b pN1a Mx INVASIVE BREAST CANCER SUMMARY: (Right breast including specimen B & D) Specimen ? total breast (including nipple and skin). Procedure ? total mastectomy (including nipple and skin). Lymph node sampling ? sentinel lymph nodes. Specimen integrity ? single intact specimen. Specimen laterality ? right breast Tumor site ? mid portion Tumor size ? 3.5 x 3 x 3 cm Tumor focality ? single focus of invasive carcinoma. Macroscopic and Microscopic extent of tumor: Skin ? invasive carcinoma does not invade into the dermis or epidermis. Nipple ? ductal carcinoma in situ does not involve nipple epidermis. Skeletal muscle ? no skeletal muscle present. Ductal carcinoma in situ (DCIS) ? ductal carcinoma in situ is present. Extensive intraductal component (EIC) ? negative Size (extent) of DCIS ? ductal carcinoma in situ comprises about 20% of the total tumor volume and is present adjacent to the invasive carcinoma. Number of blocks with DCIS ? 5 Number of blocks examined ? 12 Architectural pattern ? solid Nuclear grade ? grade 1 (low) Necrosis ? present, focal (single cell necrosis) Histologic type of invasive carcinoma ? invasive ductal carcinoma (no special type). Histologic Grade ([place] grade): Glandular/tubular differentiation - score 3 Nuclear pleomorphism - score 1 Mitotic count ? score 1 Overall grade - 1 (score of 5) Margins: Margins uninvolved by invasive carcinoma and ductal carcinoma in situ. Invasive carcinoma and ductal carcinoma in situ are 0.2 cm away from the closest posterior margin. Treatment effect ? response to presurgical (neoadjuvant) therapy - no known presurgical therapy. Lymph-Vascular invasion ? not identified Dermal lymph-vascular invasion - not identified Lymph nodes: Number of sentinel lymph nodes examined - 3 Total number of lymph nodes examined (sentinel and nonsentinel) - 3 Number of lymph nodes with macrometastases, micrometastases and isolated tumor cells - 0 Method of evaluation of sentinel lymph nodes - H & E, multiple levels and IHC Distance metastasis ? not applicable Additional pathologic findings ? intraductal hyperplasia without atypia. Ancillary studies - previously performed on section of tumor ([id number] / [id number]). ER ? positive (>95%, strong) TN - positive (>85%, strong) Her2 sun ? negative (0) Microcalcifications ? not identified Clinical history - Please make reference to previous specimen ([id number]) right breast, ultrasound-guided needle core biopsy with diagnosis of invasive ductal carcinoma. PATHOLOGIC STAGE: pT2 pN0(sn) Mx The above summary is in compliance with [employer] [place] [employer] (CAP) Cancer Protocols Checklist and [place] [employer] Committee on Cancer (AJCC), Staging Manual, 8th Ed. SJ:flash 01/01/18 SJ:flash 05/24/18 COMMENT A. The largest focus of metastasis measures 0.4 cm in greatest dimension. Extranodal extension is not seen. Immunohistochemistry for cytokeratins was performed on other three lymph nodes ([id number]) and three out of three lymph nodes are negative for metastatic carcinoma. C. The biopsy cavity measures 2.2 cm in greatest dimension; however, the invasive tumor only measures 0.5 cm in greatest dimension. The tumor in the previous core biopsy ([id number]) measured 9 mm in greatest length. Pathologic staging for tumor in the left breast is includes the size in the core biopsy. Correlation with radiologic findings is necessary for exact size of the tumor. E. The largest focus of metastasis measures 0.5 cm in greatest dimension. Extranodal extension is not seen. Case has been reviewed in consultation with Dr. Brown who concurs with the above diagnosis. IDC:AM MICROSCOPIC DESCRIPTION Slides are reviewed. GROSS DESCRIPTION A - Received fresh for frozen section consultation labeled with the patient's name is a specimen designated left breast sentinel lymph nodes. The specimen consists of an irregular fragment of fabian-yellow fibrofatty tissue measuring 7 x 4.5 x 2 cm. Dissection reveals four lymph nodes, the largest of which measures 3 cm. The lymph nodes are submitted in their entirety for frozen section consultation in six blocks as follows: 1 & 2 ? one lymph node, 3 ? one lymph node, 4 ? one lymph node, 5 & 6 ? one lymph node, serially sectioned. / AM:flash 12/28/17 B - Received fresh for frozen section consultation labeled with the patient's name is a specimen designated right sentinel lymph nodes. The specimen consists of an irregular fragment of fabian-yellow fibrofatty tissue measuring 6 x 4.5 x 2 cm. Dissection reveals three nodules resembling lymph nodes, the largest of which measures 1 cm. The lymph nodes are submitted in their entirety for frozen section consultation in three blocks as follows: 1? one lymph node, 2 ? one lymph node, 3 ? one lymph node. / AM: 12/28/17 C - Received in fixative is one container labeled with the patient's name and designated left breast. The specimen consists of a mastectomy specimen measuring 32 x 23 x 5.5 cm and containing an ellipse of skin with centrally located nipple and areola in its anterior portion measuring 23 x 8.5 cm. No cutaneous mass lesions are identified. The specimen weighs 1308 gm. The posterior surface does not contain skeletal muscle. The specimen is differentially inked as follows: superior ? blue, inferior ? green, and posterior ? black. Serial sections reveal a firm, fabian-white mass measuring 2.2 x 1.5 x 1.2 cm. The mass is located 1.8 cm from its closest (inferior) margin of excision. The remainder of the breast parenchyma is yellow and contains focal white fibrous streaks. No other mass lesions are identified. Park Landscape [employer] sections are submitted in ten cassettes as follows: 1 ? nipple, 2 ? perpendicular superior, inferior and posterior margins, 3 ? perpendicular medial margin, 4 ? perpendicular lateral margin, 5 & 6 ? tumor, totally submitted, 7-10 ? high school admissions representative sections of uninvolved breast parenchyma. / AM: 12/28/17 D - Received in fixative is one container labeled with the patient's name and designated right breast. The specimen consists of a mastectomy specimen measuring 32 x 22 x 8 cm and containing an ellipse of skin with centrally located nipple and areola in its anterior portion measuring 24 x 9 cm. No cutaneous mass lesions are identified. The specimen weighs 1513 gm. The posterior surface does not contain skeletal muscle. The specimen is differentially inked as follows: superior ? blue, inferior ? green, and posterior ? black. Serial sections reveal a firm, fabian-white mass in deep mid portion of breast measuring 3.5 x 3 x 3 cm. The mass is located 0.2 cm from its closest (posterior) margin of excision. The remainder of the breast parenchyma is fabian-yellow and interrupted focally by white fibrous streaks. No other mass lesions are identified. Park Landscape Architect sections are submitted in 12 cassettes as follows: 1 ? nipple and areola, 2 ? perpendicular superior and inferior margins, 3 ? perpendicular medial margin, 4 ? perpendicular lateral margin, 5 - perpendicular posterior margin with adjacent tumor, 6-9 ? tumor, 10-12 ? uninvolved breast parenchyma. / AM:flash 12/28/17 E - Received in fixative is one container labeled with the patient's name and designated left axillary contents. The specimen consists of an irregular fragment of fabian-yellow fibrofatty tissue measuring 10 x 7 x 1.5 cm. Dissection reveals multiple nodules ranging in size from 0.2 to 2.2 cm in greatest dimension. The nodules are submitted in their entirety as follows: 1 ? one nodule bisected, 2 ? one nodule bisected, 3 ? one nodule bisected, 4 ? three nodules. / AM:flash 12/28/17 TC:0 CPT: 58411 x5, 34791 x2, 84069 x7
--- NOTE | 2017-12-28 05:44 | EKG12_ITS ---
Test Reason : PRE OP Blood Pressure : / mmHG Vent. Rate : 075 BPM Atrial Rate : 075 BPM P-R Int : 128 ms QRS Dur : 088 ms QT Int : 366 ms P-R-T Axes : -06 -26 -32 degrees QTc Int : 408 ms Normal sinus rhythm Nonspecific T wave abnormality Abnormal ECG When compared with ECG of 25-OCT-2006 23:53, Nonspecific T wave abnormality now evident in Lateral leads Confirmed by ELA SALDIVAR, AVANI ([id number]), proposal editor ALIX ISSA ([id number]) on 12/31/2017 3:44:34 PM Referred By: Chris Veliz Confirmed By:AVANI MAHMOOD MD
[2017-12-28 06:36] LABS: Bedside Glucose 153 mg/dL (70-110)
[2017-12-28] MEDS: Clindamycin 900 MG/50 ML BAG 75 MG IV (07:21)
--- NOTE | 2017-12-28 07:29 | PCM.OPRPT ---
Problem List (1) Malignant neoplasm of right female breast Status: Acute Qualifiers: Breast location: unspecified site of breast Estrogen receptor status: positive Qualified Code(s): C50.911 - Malignant neoplasm of unspecified site of right female breast; Z17.0 - Estrogen receptor positive status [ER+] (2) Malignant neoplasm of left female breast Status: Acute Qualifiers: Breast location: unspecified site of breast Estrogen receptor status: positive Qualified Code(s): C50.912 - Malignant neoplasm of unspecified site of left female breast; Z17.0 - Estrogen receptor positive status [ER+] Report of Operation Date of Procedure: 12/28/17 Pre-Operative Diagnosis: 1. c50.911, c50.912, z17.0 bilateral malignant neoplasia terms of breast and female, estrogen receptor positive, unspecified site of breast Surgery/Procedure Performed:: 1. 92700-04 Bilateral injection of Lymphazurin blue to breast. 2. right mastectomy. 3. 09683-82 Bilateral sentinel lymph node biopsies. 4. left modified radical mastectomy Type of Anesthesia:: General Anesthesiologist: Parag Peguero Drains: 15 round ann bilateral Estimated Blood Loss (mL): 100 cc Fluids Replaced: 1600 cc LR Description of Procedure: Patient was brought into the operating room and placed in the supine position under excellent general endotracheal intubation I injected 4 cc of Lymphazurin blue circumareolar the on the left breast. Both the left and right breasts were then sterilely prepped and draped in the usual fashion. Curvilinear incision was made around the nipple I used the plasma blade as well as curved Mayos to develop flaps both in the superior and inferior direction. I used the plasma blade to take the breast off of the sternum and rotated off the pectoralis major muscle from the medial to lateral standpoint. Small perforating vessels were controlled with small metal clips we got to the lateral border of the pectoralis major I entered the clavipectoral fascia and identified several large blue lymph nodes and sent them to pathology for frozen section 1 of these came back as positive for breast cancer and an axillary node dissection was performed. Identified the axillary vein dissected superiorly underneath the pectoralis major muscle and then took a grouping of lymph nodes out in the process I did identify the thoracodorsal nerve. The nerve was easily spared. After this was done to drains) 15 round Emmanuel-Hall) placed suture to the skin with 3-0 nylon. The incision was then closed with deep dermal stitches of 3-0 Vicryl in a running 4-0 Monocryl. Went to the right side of the breast injected 4 cc of Lymphazurin blue elliptical incision was made. Once again with the use of the plasma blade as well as curved Menendez's flaps in both an inferior and superior fashion were made. Plasma blade was used to obtain good hemostasis. I used the plasma blade to rotate the breast off of the pectoralis major muscle from a medial to lateral standpoint. Once I came to the lateral border of the pectoralis major muscle I dissected in the clavipectoral fascia identified a blue lymphatic and dissected in underneath the pectoralis major muscle and took out a small grouping of blue lymph nodes. I sent these to the pathologist who gave me a frozen section report of all 3 being negative. A single 15 round Emmanuel-Hall drain was placed into this cavity and sutured to the skin with a 3-0 nylon. Skin was brought together with deep dermal stitches of 3-0 Vicryl then a running 4-0 Monocryl Steri-Strips are applied sterile dressings were applied Roberto wrap was applied and the patient tolerated the procedure well. - Admit VTE Documentation VTE Present on Admission: No VTE Mechan Device Prophylaxis: SCD's VTE Pharm Prophylaxis ordered?: No Reason prophylaxis not ordered:: Treatment Not Indicated
[2017-12-28] MEDS: Isosulfan Blue 1% 5 ML Vial ×2 (07:36→08:45)
[2017-12-28 10:31] LABS: Bedside Glucose 150 mg/dL (70-110)
[2017-12-28] MEDS: HYDROmorphone PCA 0.2 MG/ML 100 ML BAG 20 MG IV (11:44)
[2017-12-28] MEDS: Dext 5%-0.45% NS 1,000 ML 75 ML IV ×2 (12:30→16:16)
[2017-12-28] MEDS: 0.9% NaCl Peripheral Flush Adult/Peds IV (13:30)
--- NOTE | 2017-12-28 13:40 | NURSING ---
Chief Credit Officer in to see patient.
[2017-12-28] MEDS: Glucerna Shake 120 ML LIQUID PO ×3 (14:55→21:32)
[2017-12-28] MEDS: Atorvastatin Calcium 10 MG Tablet PO (21:32)
[2017-12-29] VITALS (12 sets, daily range): BP systolic 105–132; BP diastolic 52–80; PULSE 56–98; RESP 14–18; TEMP 36.5–37.7; O2SAT 93–100
[2017-12-29] MEDS: Dext 5%-0.45% NS 1,000 ML 75 ML IV (05:32)
[2017-12-29] MEDS: Levothyroxine 112 MCG Tablet PO (06:46)
[2017-12-29] MEDS: HYDROCHLOROTHIAZIDE 12.5 MG CAPSULE PO (08:13)
[2017-12-29] MEDS: Glucerna Shake 120 ML LIQUID PO ×3 (08:13→22:27)
[2017-12-29 08:51] LABS: Bedside Glucose 147 mg/dL (70-110)
--- NOTE | 2017-12-29 10:38 | PN.SURG_ITS ---
Patient Problems: Active and Suspected Problems (Last Reviewed 12/17/17 @ 14:00 by Yareli Maxwell) Malignant neoplasm of right female breast (Acute) Malignant neoplasm of left female breast (Acute) Subjective: Patient is trying to use less of her INSTRUCTIONAL FACILITATOR pump. She is tolerating p.o. without nausea or vomiting. Objective: Dressings are dry. AMENA drainage is serous in nature. - Physical Exam Vital Signs Temp Pulse Resp BP Pulse Ox 97.9 F 69 16 132/56 H 99 12/29/17 10:02 12/29/17 10:02 12/29/17 10:02 12/29/17 10:02 12/29/17 10:02 Oxygen Flow Rate (L/min) 1 Oxygen Delivery Method Room Air Weight: 266 lb 8.622 oz Body Mass Index (BMI) 39.9 Finger Stick Blood Glucose 150 Intake and Output for Last 24 Hours 12/27/17 12/28/17 12/29/17 23:59 23:59 23:59 Intake Total 4569 / 4569 1416 / 1416 Output Total 725 / 725 890 / 890 Balance 3844 / 3844 526 / 526 POC Glucose 12/29/17 08:12 POC Glucose 147 H Assessment/Plan Active and Suspected Problems (Last Reviewed 12/17/17 @ 14:00 by Yareli Maxwell) Malignant neoplasm of right female breast (Acute) Malignant neoplasm of left female breast (Acute) Patient is status post left-sided mastectomy with sentinel lymph node biopsy and conversion to a modified radical mastectomy, and on the right side we did a simple mastectomy and sentinel lymph node biopsy which was negative. Patient is not ready to go home today. Hopefully tomorrow we will be able to get her home without difficulty.
[2017-12-29] MEDS: oxyCODONE 5 MG Tablet PO ×2 (13:39→22:27)
[2017-12-29] MEDS: 0.9% NaCl Peripheral Flush Adult/Peds IV (22:24)
[2017-12-29] MEDS: Atorvastatin Calcium 10 MG Tablet PO (22:24)
[2017-12-30] MEDS: Levothyroxine 112 MCG Tablet PO (06:39)
[2017-12-30 06:43] VITALS: BP 114/57; PULSE 76; RESP 18; TEMP 37.4; O2SAT 96
[2017-12-30 07:46] VITALS: O2SAT 91
[2017-12-30] MEDS: oxyCODONE 5 MG Tablet PO (08:36)
--- NOTE | 2017-12-30 09:28 | PCM.DC.BS ---
Discharge Diet: No Restrictions Discharge Activity: May Not Drive - for 2-3 days or while taking narcotic pain meds. May shower in (days): 1 Lifting Restrictions: 10 pounds for 1 week. Call your doctor if your incision/area has: Continuous Slow Oozing, Sudden Increased Bleeding Call your doctor if you observe: Fever of 101 or Higher Suture Line Care: Avoid Pulling/Pushing, Avoid Pinching/Bending Remove Dressing in (days):: 1 - Remove bulky dressing tomorrow. May leave any opsite dressing for 3-4 days. Keep dressing in place until your follow-up appointment. Additional Dressing/Incision Instructions:: Remove bulky dressing tomorrow. May leave any opsite dressing for 3-4 days. Keep dressing in place until your follow-up appointment. Allergies/Adverse Reactions: Allergies codeine Allergy (Mild, Verified 12/26/17 13:34) rash Penicillins Allergy (Mild, Verified 12/26/17 13:34) rash fiorinol Allergy (Mild, Uncoded 12/26/17 13:36) Vomiting Medications to take at Discharge aspirin 81 mg tablet,delayed release 81 mg PO DAILY tab 11/30/17 calcium carbonate 500 mg calcium (1,250 mg) tablet 1,000 mg PO DAILY tab 11/30/17 levothyroxine 112 mcg tablet 112 mcg PO QDAY tab 11/30/17 metformin 500 mg tablet 500 mg PO BID 11/30/17 multivitamin capsule 1 cap PO QDAY 11/30/17 nebivolol 2.5 mg tablet 5 mg PO QHS tab 11/30/17 valsartan 80 mg-hydrochlorothiazide 12.5 mg tablet 1 tab PO DAILY 11/30/17 vitamin B complex tablet 1 tab PO QDAY 11/30/17 Celecoxib [Celebrex] 200 mg PO DAILY 12/26/17 Simvastatin [Zocor] 20 mg PO QHS 12/26/17 Oxycodone HCl/Acetaminophen [Percocet 5/325] 1 - 2 tab PO Q4H PRN PRN 4 Days #30 tab 12/29/17 The following prescriptions were given: Oxycodone HCl/Acetaminophen [Percocet 5/325] 1 - 2 tab PO Q4H PRN PRN 4 Days #30 tab PRN Reason: Pain Primary Care Physician: Boone Lacey MD [Primary Care Provider] -
[2017-12-30 09:51] VITALS: BP 115/53; PULSE 75; RESP 18; TEMP 37.1; O2SAT 98
[2017-12-30] MEDS: HYDROCHLOROTHIAZIDE 12.5 MG CAPSULE PO (10:28)
[2017-12-30] MEDS: Glucerna Shake 120 ML LIQUID PO (10:29)
[2017-12-30 11:40] VITALS: BP 128/74; PULSE 64; RESP 18; TEMP 37.2; O2SAT 100
== END 2017-12-30 11:38 | disposition home or self-care (01) ==
LOC: MS2 08:10 → MS3 10:38
PROVIDERS: Admitting Provider Surgery; Family Provider Family Medicine; PCP Family Medicine; Visit Provider Surgery
PROC: (CPT 19307; principal; 2017-12-28 07:00)
DX: C50.911 Malignant neoplasm of unspecified site of right female breast (principal); Z71.0 Person encountering health services to consult on behalf of another person; C50.912 Malignant neoplasm of unspecified site of left female breast; Z79.899 Other long term (current) drug therapy; Z79.82 Long term (current) use of aspirin; Z79.84 Long term (current) use of oral hypoglycemic drugs; G47.30 Sleep apnea, unspecified; I10 Essential (primary) hypertension; E11.9 Type 2 diabetes mellitus without complications; E03.9 Hypothyroidism, unspecified; Z87.891 Personal history of nicotine dependence
CPT/HCPCS: 19303; 19307; 38525; 38900; 82962; 88305; 88307; 88309; 88331; 88332; 88341; 88342; 93005; 94762; 96361; 96365; 96366; 97802; 99218; J3010; J7120; A4216; G0378; G0379; J1170; J2405; J7799; Q9968

== ENCOUNTER → 2018-01-16 10:40 | Outpatient (CLI) | payer OTHER, SELFPAY ==
--- NOTE | 2018-01-16 10:45 | NM_ITS ---
CLINICAL: 62-year-old female with reported history of carcinoma of the breast presenting for evaluation of resting left ventricular myocardial function. RESTING RADIONUCLIDE VENTRICULOGRAPHY COMPARISON: None available FINDINGS: Following the intravenous administration of 23.8 mCi of 99m Tc Ultratag RBCs, the resting labeled blood pool radionuclide ventriculogram reveals: 1. The left ventricular ejection fraction was calculated to be 59.0 % by equilibrium technique. 2. Left and right ventricular wall motion is considered normal and uniform in all projections. NM/MUGA Rest or Stress - Multi IMPRESSION: 1. NORMAL resting labeled blood pool radionuclide ventriculography. A. Preservation of left ventricular systolic function as described above. Electronically Signed: Fabricio Huston DO at 11:52 EDT Tel , Service support ,
== END ==
PROVIDERS: Family Provider Family Medicine; PCP Family Medicine; Visit Provider Internal Medicine Hematology & Oncology
DX: Z01.818 Encounter for other preprocedural examination (principal); C50.911 Malignant neoplasm of unspecified site of right female breast; C50.912 Malignant neoplasm of unspecified site of left female breast; C77.9 Secondary and unspecified malignant neoplasm of lymph node, unspecified
CPT/HCPCS: 78473; A9560

== ENCOUNTER 2018-01-18 07:45 | Day surgery (SDC) | payer OTHER, SELFPAY ==
[2018-01-18] VITALS (8 sets, daily range): BP systolic 97–136; BP diastolic 53–90; PULSE 68–79; RESP 16; TEMP 36.1–36.9; O2SAT 94–98; BMI 39.0
[2018-01-18 08:36] LABS: Bedside Glucose 148 mg/dL (70-110)
[2018-01-18] MEDS: Clindamycin 900 MG/50 ML BAG 75 MG IV (10:49)
[2018-01-18] MEDS: Bupivacaine 0.25% 30 ML Vial (11:00)
--- NOTE | 2018-01-18 11:20 | DCINST_ITS ---
Discharge Diet: No Restrictions - Pain medication may cause nausea. You should typically eat light foods as you take your pain medication. Discharge Activity: May Shower - with the bandage in place 1-2 days after surgery. DO NOT SHOWER WHEN YOUR PORT IS ACCESSED. Additional Activity Instructions:: May not drive, work with heavy equipment, or sign legal documents for [address] if you are no longer taking narcotic pain medications. You may drive when you are no longer taking pain medications. Additional Dressing/Incision Instructions:: Leave the bandage on for 2-3 days. When you remove the bandage, leave the steri-strips intact until they fall off. Allergies/Adverse Reactions: Allergies codeine Allergy (Severe, Verified 01/17/18 11:14) Vomiting Penicillins Allergy (Severe, Verified 01/17/18 11:14) rash fiorinol Allergy (Severe, Uncoded 01/17/18 11:14) Vomiting Medications to take at Discharge levothyroxine 112 mcg tablet 112 mcg PO QDAY tab 11/30/17 metformin 500 mg tablet 500 mg PO BID 11/30/17 multivitamin capsule 1 cap PO QDAY 11/30/17 nebivolol 2.5 mg tablet 5 mg PO QHS tab 11/30/17 valsartan 80 mg-hydrochlorothiazide 12.5 mg tablet 1 tab PO DAILY 11/30/17 Celecoxib [Celebrex] 200 mg PO DAILY 12/26/17 Simvastatin [Zocor] 20 mg PO QHS 12/26/17 Oxycodone HCl/Acetaminophen [Percocet 5/325] 1 - 2 tab PO Q4H PRN PRN 4 Days # 30 tab 12/29/17 Ascorbic Acid [Vitamin C with Staci Hips] 1,000 mg PO DAILY 01/09/18 Zinc 50 mg PO DAILY 01/09/18 Iron Carbonyl [Feosol] 65 mg PO DAILYCM 01/16/18 Vitamin B Complex 1 each PO DAILY 01/16/18 Lidocaine/Prilocaine [Lidocaine-Prilocaine Cream] 30 gm TP DAILY PRN PRN #1 cream..g. 01/17/18 Ondansetron HCl [Zofran] 4 mg PO Q8H PRN PRN #30 tab 01/17/18 Prochlorperazine Maleate 10 mg PO Q6H PRN PRN #30 tab 01/17/18 Oxycodone HCl/Acetaminophen [Percocet 5/325] 1 - 2 tab PO Q4H PRN PRN 4 Days # 30 tab 01/18/18 The following prescriptions were given: Oxycodone HCl/Acetaminophen [Percocet 5/325] 1 - 2 tab PO Q4H PRN PRN 4 Days # 30 tab PRN Reason: Pain Primary Care Physician: Boone Lacey MD [Primary Care Provider] - Please Follow Up With: Chris Veliz MD - [phone] When: Please plan to follow up in 7 days in the office.
--- NOTE | 2018-01-18 11:20 | PCM.OPRPT ---
Problem List (1) Bilateral malignant neoplasm of breast in female Status: Acute Qualifiers: Breast location: unspecified site of breast Estrogen receptor status: unspecified Qualified Code(s): C50.911 - Malignant neoplasm of unspecified site of right female breast; C50.912 - Malignant neoplasm of unspecified site of left female breast Report of Operation Date of Procedure: 01/18/18 Pre-Operative Diagnosis: c50.911 bilateral breast malignancies Post-Operative Diagnosis: Same Surgery/Procedure Performed:: Placement of a right IJ PowerPort Type of Anesthesia:: MAC Anesthesiologist: Tanner Bautista Description of Procedure: Patient was brought in the operating room. Placed in the supine position. The bed was placed in the headdown position and her neck was tilted to the left. I ultrasound the neck and identify the internal jugular vein. The neck and chest were marked appropriately. The neck and chest were then sterilely prepped and draped in the usual fashion. Local was injected. Seldinger's technique was used to gain access to the internal jugular vein. Guidewire was placed over the needle the needle was removed. Fluoroscopy was used to confirm proper placement of the wire. Local was injected on the chest. An incision was made and a pocket was created for the port. A skin padmini was made in the neck. Dilator was placed over the guidewire and removed the dilator and sheath were placed over the guidewire and the dilator and guidewire were removed. A single lumen catheter was placed over the sheath. The sheath was removed. Fluoroscopy was used to confirm proper length. I tunneled from the pocket over the collarbone and into the neck and brought the catheter down. It flushed and irrigated well I cut it to length. I placed locking hub on the catheter the port onto the catheter and secured the 2 with the locking hub. It flushed and irrigated well was flushed with 5 cc of hep flush. I sutured the pocket into the port with 2 sutures of 2-0 Prolene. Incisions were brought together with deep dermal stitches of 3-0 Vicryl. Running 4-0 Monocryl on the skin. Dermabond was applied. Sterile dressings were applied. Patient tolerated the procedure well. Portable chest x-ray was ordered. - Admit VTE Documentation VTE Present on Admission: No VTE Mechan Device Prophylaxis: SCD's VTE Pharm Prophylaxis ordered?: No Reason prophylaxis not ordered:: Treatment Not Indicated
--- NOTE | 2018-01-18 11:42 | RAD_ITS ---
STUDY: X-RAY CHEST REASON FOR EXAM: Female, 62 years old. Right portacatheter placement, check position and for pneumothorax. Breast carcinoma. TECHNIQUE: Single AP upright portable chest view. COMPARISON: No prior chest imaging available. FINDINGS: Report catheter is identified, inferior tip overlies the SVC and right superior-lateral heart shadow near the atrial caval junction. Tubing overlies the left lower chest/lower lung zone. The lungs appear clear and well expanded. There is no demonstrated pleural abnormality. Normal size heart. Normal size mediastinum and kriss. Surgical clips project over the left hilum. Surgical clips also project over the right lower lobe lung field, may be prior right breast postsurgical change. Normal visualized pulmonary arteries. Normal visualized aortic arch and descending thoracic aorta. Visualized bones appear intact including visualized thoracic spine, ribs and clavicles. There is no demonstrated abnormality of the visualized soft tissue structures of the upper abdomen. No subdiaphragmatic free air seen grossly. RAD/CXR for Line Placement IMPRESSION: Right libertad catheter insertion as described. Clinical correlation recommended. No active carpal disease identified. Post surgical changes as described. Electronically Signed: Ben Jimmy, at 12:26 EDT Tel , Service support ,
== END 2018-01-18 13:03 | disposition home or self-care (01) ==
LOC: SDC 07:46 → AC 07:46
PROVIDERS: Family Provider Family Medicine; PCP Family Medicine; Visit Provider Surgery
PROC: (CPT 36571; principal; 2018-01-18 09:45)
DX: C50.911 Malignant neoplasm of unspecified site of right female breast (principal); C50.912 Malignant neoplasm of unspecified site of left female breast; C77.9 Secondary and unspecified malignant neoplasm of lymph node, unspecified; Z17.0 Estrogen receptor positive status [ER+]; G47.30 Sleep apnea, unspecified; I10 Essential (primary) hypertension; E11.9 Type 2 diabetes mellitus without complications; E03.9 Hypothyroidism, unspecified; Z80.3 Family history of malignant neoplasm of breast; Z87.891 Personal history of nicotine dependence; Z79.84 Long term (current) use of oral hypoglycemic drugs; Z79.891 Long term (current) use of opiate analgesic; Z79.899 Other long term (current) drug therapy
CPT/HCPCS: 36571; 71045; 77001; 82962; J7120; C1788; J2405

== ENCOUNTER 2018-02-07 08:30 | Outpatient (RCR) | payer OTHER, SELFPAY ==
--- NOTE | 2018-01-28 18:45 | HP.OTEVAL_ITS ---
Patient's Visit Information KODI POWELL is a 62 year old F, referred to Occupational Therapy by Dunia Meadows NP.[facility], with a diagnosis of Right and left malignant neoplasm of breast-. Date of Evaluation: 01/28/18 Occupational Therapist: Norma Torres, JACQUELINE/Toro, CHT - Subjective Subjective: pt dx in Nov. Pt had sx December 28, 2017 with bilateral mastectomy-. sentinel node right side-. sentinel node and axillary node dissection on left side. pt states she is having tightness with left UE and chest wall- feels like its pulling me in. and will start chemo-. 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 60# left 50# Lateral Pinch: right 10# left 10# Tripod Pinch: right 6# left 8# - Lymphedema (Circumferential Measure) MCP: right/left 21cm/21cm Wrist: right/left 18cm/18cm Lower forearm: right/left 20.5cm/22cm Largest forearm: right/left 28cm/28.5cm Elbow: right/left 29.5cm/29.5cm Largest humerus: right/left 36cm/34cm Axcillary: right/left 38cm/41cm Upper Exremity Comments: pt demo with increase left UE circumferential measurments- - Goals Demonstrate a 20% reduction in edema by d/c: Yes Demonstrate adequate knowledge of self-massage by 2nd week: Yes Demonstrate adequate knowledge skin care/prec by 2nd week: Yes Demonstrate adequate knowledge therapeutic exercises by d/c: Yes Select approp compression garment w/donning/care/wear by d/c: Yes Voice need to replace compression garment every 4-6mo by dc: Yes Goal: Patient will demonstrate ROM WFL by discharge.: Yes Goal:: pt will demo understanding of scar mtg by end of 2nd session - Rehabilitation General Assessment: pt demo with increase left UE circumferential measurments- limited left UE ROM and scar thickening over chest wall- pt would benefit from skille OT services to initate MLD to stimulate lymph circulation followed with ROM and scar mtg. due to pts chemo tx starting this week- pt will schedule every other week as she is able- pt will bring delisa with her so he can learn scar mtg. [ End ] Rehabilitation Potential: Good - Anticipated Interventions Anticipated Interventions: A/AAROM/PROM, Strengthening, Scar Care, Triggerpoint Release, Desensitization, Education re Diagnosis, Education re Life-long lymphedema Management, Education re Skin Care and Precautions, Education re Self Massage Techniques - Visit Plan Frequency: Every Other Week Duration: 2 Months TEXT: Thank you for the opportunity to evaluate your patient. For Medicare and Medicare HMO plans, please review the plan of care and approve it. It will need to be FAXED BACK to us at [phone] for Medicare purposes. Please let me know if there are questions or concerns regarding this plan of care. Physician Signature: Date:
--- NOTE | 2018-04-02 11:20 | HP.OT.NRP ---
HP - Discharge Summary - Patient Information KODI POWELL was seen in my office for initial evaluation on 01/28/18. The following Plan of Care was established for this patient: Initial Frequency: Every Other Week Initial Duration: 2 Months Plan: pt to return for scar mtg and MLD - Anticipated Interventions Anticipated Interventions: A/AAROM/PROM, Strengthening, Scar Care, Triggerpoint Release, Desensitization, Education re Diagnosis, Education re Life-long lymphedema Management, Education re Skin Care and Precautions, Education re Self Massage Techniques This patient was last seen in our office 02/07/18. Pertinent comments regarding their Occupational therapy will appear below: Pt was seen for two visits to ed. pt on lymphedema, ROM and scar mtg. pt demo understanding at the last visit, and was doing ok following her inital chemo- pt was to return or call if she had questions or concerns with her progress. pt has not scheduled at this time and will be D.C at this time. At this point I will be discontinuing this patient from occupational therapy. I would be happy to see this patient again in the future if found appropriate by the physician. Thank you! Norma Torres, OTR/L, CHT
== END 2018-02-07 19:00 | disposition home or self-care (01) ==
LOC: OT 08:30
PROVIDERS: Family Provider Family Medicine; PCP Family Medicine; Visit Provider Nurse Practitioner Family
DX: C50.912 Malignant neoplasm of unspecified site of left female breast (principal); C50.911 Malignant neoplasm of unspecified site of right female breast
CPT/HCPCS: 97140; 97166; 97530

== ENCOUNTER 2018-06-06 17:30 | Outpatient (RCR) | payer OTHER, SELFPAY ==
--- NOTE | 2018-05-21 15:47 | HP.OTEVAL_ITS ---
Patient's Visit Information KODI POWELL is a 62 year old F, referred to Occupational Therapy by Meenu Arvizu, with a diagnosis of bilateral breast Malignant neoplasm. Date of Evaluation: 05/21/18 Occupational Therapist: Norma Torres, HARRYR/Toro, T - Subjective Subjective: Pt states she finshed her chemo two weeks ago and will have radiation consultation- PT states she felt so tired and drained she was unable to keep her endurance levels up. pt is ready to initiate a strengthening program to return to perfroming her ADLS and IADLS tasks at a ind. level - Pain chest wall 0 Pain Intensity Range: 0, 4 - Objective Objective/Observation: pt demo with bilateral mastectomy - scar adhesions on bilateral sides - ROM ROM Comments: pt demo ROM WFL - Strength Shoulder: right 4/5 left 4-/5 Elbow: right 4/5 left 4-/5 Strength Comments: pt demo weak UB and core from sx and treatments - Lymphedema (Circumferential Measure) MCP: right 21cm left 22cm Wrist: right 19.5 left 19.5cm Lower forearm: right 22.5cm left 22.5cm Largest forearm: right 29.5cm left 29.5cm Elbow: right 30cm left 31cm Largest humerus: right 38cm left 38cm Axcillary: right 41.5cm left 42cm Lower Exremity Comments: no noted edema - Sensation Sensation Comments: pt states she does have a little on numbness on her finger tips-. picking up smalll things is difficult due to unable to get. Very sensitive feet where she is unable to put shoes on. - Goals Goal:: pt will demo a increase in bilateral UB strength 5/5 to increase ind with BADLS and IADLs . Goal:: Pt will report pain no greater than 1/10 with use of BUE to increase ind. with perfromance of BADLS and IADls. Goal:: pt will demo understanding of scar mtg by end of 3rd session - Rehabilitation General Assessment: pt demo with generalized weakness and deconditioning following her cancer tx- pt demo need for skilled OT services to return pt to PLOF- Rehabilitation Potential: Good - Anticipated Interventions Anticipated Interventions: A/AAROM/PROM, Strengthening, Scar Care, Triggerpoint Release, Ergonomic Education, Education re assistive Equipment - Visit Plan Frequency: 2-3x /Week Duration: 6 Weeks TEXT: Thank you for the opportunity to evaluate your patient. For Medicare and Medicare HMO plans, please review the plan of care and approve it. It will need to be FAXED BACK to us at [phone] for Medicare purposes. Please let me know if there are questions or concerns regarding this plan of care. Physician Signature: Date:
--- NOTE | 2018-05-22 08:41 | HP.OTEVAL_ITS ---
Patient's Visit Information KODI POWELL is a 62 year old F, referred to Occupational Therapy by Meenu Avrizu, with a diagnosis of bilateral breast Malignant neoplasm. Date of Evaluation: 05/21/18 Occupational Therapist: Norma Torres, HARRYR/Toro, T - Subjective Subjective: Pt states she finshed her chemo two weeks ago and will have radiation consultation- PT states she felt so tired and drained she was unable to keep her endurance levels up. pt is ready to initiate a strengthening program to return to perfroming her ADLS and IADLS tasks at a ind. level - Pain chest wall 0 Pain Intensity Range: 0, 4 - Objective Objective/Observation: pt demo with bilateral mastectomy - scar adhesions on bilateral sides - ROM ROM Comments: pt demo ROM WFL - Strength Shoulder: right 4/5 left 4-/5 Elbow: right 4/5 left 4-/5 Strength Comments: pt demo weak UB and core from sx and treatments - Lymphedema (Circumferential Measure) MCP: right 21cm left 22cm Wrist: right 19.5 left 19.5cm Lower forearm: right 22.5cm left 22.5cm Largest forearm: right 29.5cm left 29.5cm Elbow: right 30cm left 31cm Largest humerus: right 38cm left 38cm Axcillary: right 41.5cm left 42cm Lower Exremity Comments: no noted edema - Sensation Sensation Comments: pt states she does have a little on numbness on her finger tips-. picking up smalll things is difficult due to unable to get. Very sensitive feet where she is unable to put shoes on. - Goals Goal:: pt will demo a increase in bilateral UB strength 5/5 to increase ind with BADLS and IADLs . Goal:: Pt will report pain no greater than 1/10 with use of BUE to increase ind. with perfromance of BADLS and IADls. Goal:: pt will demo understanding of scar mtg by end of 3rd session Goal:: pt will report she is able to shower and dress in less than 40 min as indicator that pts strength and enderance is increasing pts functional perfromance of BADLS and IADLS by d/c - Rehabilitation General Assessment: pt demo with generalized weakness and deconditioning following her cancer tx- pt demo need for skilled OT services to return pt to PLOF- Rehabilitation Potential: Good - Anticipated Interventions Anticipated Interventions: A/AAROM/PROM, Strengthening, Scar Care, Triggerpoint Release, Ergonomic Education, Education re assistive Equipment - Visit Plan Frequency: 2-3x /Week Duration: 6 Weeks TEXT: Thank you for the opportunity to evaluate your patient. For Medicare and Medicare HMO plans, please review the plan of care and approve it. It will need to be FAXED BACK to us at [phone] for Medicare purposes. Please let me know if there are questions or concerns regarding this plan of care. Physician Signature: Date:
--- NOTE | 2018-05-22 08:43 | HP.OTEVAL_ITS ---
Patient's Visit Information KODI POWELL is a 62 year old F, referred to Occupational Therapy by Meenu Arvizu, with a diagnosis of bilateral breast Malignant neoplasm. Date of Evaluation: 05/21/18 Occupational Therapist: Norma Torres, JACQUELINE/Toro, T - Subjective Subjective: Pt states she finshed her chemo two weeks ago and will have radiation consultation- PT states she felt so tired and drained she was unable to keep her endurance levels up. pt is ready to initiate a strengthening program to return to perfroming her ADLS and IADLS tasks at a ind. level - Pain chest wall 0 Pain Intensity Range: 0, 4 - Objective Objective/Observation: pt demo with bilateral mastectomy - scar adhesions on bilateral sides. fair sitting and amb posture. pt reports she is able to perform bathing/dressing tasks but they are more time consuming as she needs to stop and rest bewteen tasks - ROM ROM Comments: pt demo ROM WFL - Strength Shoulder: right 4/5 left 4-/5 Elbow: right 4/5 left 4-/5 Strength Comments: pt demo weak UB and core from sx and treatments - Lymphedema (Circumferential Measure) MCP: right 21cm left 22cm Wrist: right 19.5 left 19.5cm Lower forearm: right 22.5cm left 22.5cm Largest forearm: right 29.5cm left 29.5cm Elbow: right 30cm left 31cm Largest humerus: right 38cm left 38cm Axcillary: right 41.5cm left 42cm Lower Exremity Comments: no noted edema - Sensation Sensation Comments: pt states she does have a little on numbness on her finger tips-. picking up smalll things is difficult due to unable to get. Very sensitive feet where she is unable to put shoes on. - Goals Goal:: pt will demo a increase in bilateral UB strength 5/5 to increase ind with BADLS and IADLs . Goal:: Pt will report pain no greater than 1/10 with use of BUE to increase ind. with perfromance of BADLS and IADls. Goal:: pt will demo understanding of scar mtg by end of 3rd session Goal:: pt will report she is able to shower and dress in less than 40 min as indicator that pts strength and enderance is increasing pts functional perfromance of BADLS and IADLS by d/c - Rehabilitation General Assessment: pt demo with generalized weakness and deconditioning following her cancer tx- pt demo need for skilled OT services to return pt to PLOF- pt demo with generalized weakness and deconditioning following her cancer tx- pt demo need for skilled OT services to return pt to PLOF- This visit pt was ed. on PRE for core, UB and LE. pt was given handout and demo understanding of ex. Therapy will cont to increase pts strength and endruance and scar mtg/ desensitization. rec' skilled OT services 2x week for 3 weeks and increase to 3xweek for 3 weeks to return pt to PLOF. [ End ] Rehabilitation Potential: Good - Anticipated Interventions Anticipated Interventions: A/AAROM/PROM, Strengthening, Scar Care, Triggerpoint Release, Ergonomic Education, Education re assistive Equipment - Visit Plan Frequency: 2-3x /Week Duration: 6 Weeks TEXT: Thank you for the opportunity to evaluate your patient. For Medicare and Medicare HMO plans, please review the plan of care and approve it. It will need to be FAXED BACK to us at [phone] for Medicare purposes. Please let me know if there are questions or concerns regarding this plan of care. Physician Signature: Date:
--- NOTE | 2018-09-30 09:58 | HP.OT.NRP ---
HP - Discharge Summary - Patient Information KODI POWELL was seen in my office for initial evaluation on 05/21/18. The following Plan of Care was established for this patient: Initial Frequency: 2-3x /Week Initial Duration: 6 Weeks Plan: cont POC - Anticipated Interventions Anticipated Interventions: A/AAROM/PROM, Strengthening, Scar Care, Triggerpoint Release, Ergonomic Education, Education re assistive Equipment This patient was last seen in our office 06/06/18. Pertinent comments regarding their Occupational therapy will appear below: Client was seen for 6 visits undergoing PRE to increase her functional strength and endurance for returning to PLOF. Pt started radiation and has not returned at this time. Due to timelapse in therapy services client is D/C. At this point I will be discontinuing this patient from occupational therapy. I would be happy to see this patient again in the future if found appropriate by the physician. Thank you! Norma Torres, OTR/L, CHT
== END 2018-06-06 19:00 | disposition home or self-care (01) ==
LOC: OT 17:30
PROVIDERS: Family Provider Family Medicine; PCP Family Medicine; Visit Provider Physician Assistant
DX: C50.911 Malignant neoplasm of unspecified site of right female breast (principal); C50.912 Malignant neoplasm of unspecified site of left female breast
CPT/HCPCS: 97110; 97140; 97166; G8987; G8988

== ENCOUNTER → 2018-06-19 09:08 | Outpatient (CLI) | payer OTHER, SELFPAY ==
[2018-05-28 09:10] VITALS: BMI 39.7
== END ==
PROVIDERS: Family Provider Family Medicine; PCP Family Medicine; Visit Provider Nurse Practitioner Family
DX: Z78.0 Asymptomatic menopausal state (principal); Z13.820 Encounter for screening for osteoporosis; Z79.811 Long term (current) use of aromatase inhibitors
CPT/HCPCS: 77080

== ENCOUNTER → 2018-10-18 10:44 | Outpatient (CLI) | payer OTHER, SELFPAY ==
[2018-08-15 08:02] VITALS: BMI 39.4
[2018-10-18 10:44] VITALS: BMI 40.6
[2018-10-18 12:33] LABS: Vitamin D,25 Hydroxy 50.1 ng/mL (29.95-100.01)
[2018-10-18 12:36] LABS: T4 Free Direct 1.15 ng/dL (0.76-1.46); Thyroid Stim Hormone (TSH) 2.98 uIU/mL (0.358-3.74)
== END ==
PROVIDERS: Family Provider Family Medicine; PCP Family Medicine; Visit Provider Family Medicine
DX: C50.911 Malignant neoplasm of unspecified site of right female breast (principal); C50.912 Malignant neoplasm of unspecified site of left female breast; E11.9 Type 2 diabetes mellitus without complications; E03.9 Hypothyroidism, unspecified
CPT/HCPCS: 36415; 82306; 84439; 84443

== ENCOUNTER → 2019-07-25 | Outpatient (CLI) | payer OTHER, SELFPAY ==
[2018-08-15 08:02] VITALS: BMI 39.4
[2019-05-21 13:59] VITALS: BMI 39.7
--- NOTE | 2019-07-25 18:15 | MRI_ITS ---
STUDY: MRI BRAIN WITH AND WITHOUT CONTRAST REASON FOR EXAM: Female, 63 years old. Headache, history of breast cancer. TECHNIQUE: Standardized multiplanar fat and water weighted pulse sequences were obtained. IV Dotarem 23 was administered for the contrast portion of the examination. COMPARISON: None. FINDINGS: There is mild cerebral atrophy with widening of the extra-axial spaces and ventricular dilatation. There are a limited number of small white matter hyperintensities, distributed throughout the deep white matter tracts of the cerebral hemispheres, consistent with mild chronic white matter ischemic changes. There is no evidence for recent intracranial ischemia or other cause of cytotoxic edema on diffusion weighted imaging (DWI). Normal T2* images of the brain without demonstrated susceptibility artifact. There is no demonstrated hemosiderin stain. Normal bilateral basal ganglia. Normal thalami. There is no extra-axial fluid accumulation. Normal flow voids within the major intracranial circulation suggesting patency by spin echo criteria. Normal venous enhancement. There is no enhancing intra-axial or extra-axial abnormality. Normal sella turcica, pituitary gland, infundibular stalk, optic chiasm and hypothalamus. Normal tectal plate and pineal gland. Normal midbrain, radha and medulla. Normal cerebellum. Normal basal cisterns. Normal bilateral temporal bones. Normal bilateral internal auditory canals. No demonstrated orbital abnormality, within the constraints of a routine brain study. Normal visualized paranasal sinuses. Normal calvarium and skull base. Normal visualized soft tissue structures. Normal visualized upper cervical spine. MRI/Brain W/WO Contrast IMPRESSION: Involutional changes of the brain, as described above. No MR evidence of metastatic disease. Electronically Signed: Fabricio Headley MD at 16:09 EDT Tel , Service support ,
[2019-07-25 19:56] LABS: CREATININE FINGERSTICK 0.7 mg/dL (0.55-1.02); EGFR FINGERSTICK > 60.0000 mL/min (>60)
== END | disposition home or self-care (01) ==
LOC: MRI 17:25
PROVIDERS: Family Provider Family Medicine; PCP Family Medicine; Referring Provider Student in an Organized Health Care Education/Training Program; Visit Provider Student in an Organized Health Care Education/Training Program
DX: R51 Headache (principal)
CPT/HCPCS: 70553; A9575

== ENCOUNTER → 2019-11-04 08:09 | Outpatient (CLI) | payer OTHER, SELFPAY ==
[2018-08-15 08:02] VITALS: BMI 39.4
[2019-08-27 14:06] VITALS: BMI 39.2
[2019-11-04 12:23] LABS: Absolute Lymphocyte Count 1.08 X10^3/uL (0.83-4.51); Absolute Neutrophil Count 3.1 X10^3/uL (2.0-7.7); Basophil# 0.03 X10^3/uL; Basophil% 0.6 % (0-1); Eosinophil# 0.25 X10^3/uL; Hematocrit 42.7 % (37-47); Hemoglobin 13.9 g/dL (12.0-15.0); Lymphocyte # 1.08 X10^3/ul (4.0); Lymphocyte % 21.8 % (19-41); Mean Corp Hgb Conc 32.6 g/dL (32-36); Mean Corpuscular Volume 98.2 fL (81-99); Mean Platelet Vol. 9.8 fl (6.2-12.0); Monocyte# 0.51 X10^3/uL; Monocyte% 10.3 % (0-10); NRBC Flagged by Analyzer 0 % (0-5); Neutrophil # 3.08 X10^3/uL (2.7-7.7); Neutrophil % 62.1 % (47-70); Platelet Count 173 K/mm3 (150-450); RBC Distribution Width CV 13.2 % (11.6-14.6); RBC Distribution Width SD 47.8 fl (35.1-43.9); Red Blood Count 4.35 M/mm3 (4.2-5.4)
[2019-11-04 12:47] LABS: Hemoglobin A1c 7.7 % (4.2-6.3)
[2019-11-04 12:54] LABS: ALB/GLOB Ratio 0.9 RATIO (0.9-2.4); AST(SGOT) 22 U/L (15-37); Alanine Aminotransfer ALT/SGPT 35 U/L (13-56); Albumin, Serum 3.5 g/dL (3.2-5.0); Alkaline Phosphatase 90 U/L (45-117); Anion Gap 5 (5-15); BUN 21 mg/dL (7-18); BUN/Creat Ratio 18.6 RATIO (10-20); Calcium,Total 10.1 mg/dL (8.5-10.1); Chloride 105 mmol/L (98-107); Cholesterol 121 mg/dL (200); Creatinine, Serum 1.13 mg/dL (0.55-1.02); EST Glomerular Filtration Rate 51 mL/min (>60); Est Glom Filt Rate - Afr Amer 62 mL/min (>60); Globulin 3.7 g/dL (2.2-4.2); Glucose 169 mg/dL (74-106); High Density Lipoprotein 39 mg/dL; Potassium 4.5 mmol/L (3.5-5.1); Protein, Total 7.2 g/dL (6.4-8.2); Sodium Level 138 mmol/L (136-145); Thyroid Stim Hormone (TSH) 6.63 uIU/mL (0.358-3.74); Triglycerides 169 mg/dL; Very Low Density Lipoprotein 34 mg/dL (5-40)
== END ==
PROVIDERS: Family Provider Family Medicine; PCP Family Medicine; Visit Provider Family Medicine
DX: E11.9 Type 2 diabetes mellitus without complications (principal); I10 Essential (primary) hypertension; E03.9 Hypothyroidism, unspecified; E78.5 Hyperlipidemia, unspecified
CPT/HCPCS: 36415; 80053; 80061; 83036; 84443; 85025

== ENCOUNTER → 2019-11-05 14:49 | Outpatient (CLI) | payer OTHER, SELFPAY ==
[2018-08-15 08:02] VITALS: BMI 39.4
[2019-08-27 14:06] VITALS: BMI 39.2
--- NOTE | 2019-11-05 14:54 | RAD_ITS ---
STUDY: X-RAY CHEST REASON FOR EXAM: Female, 63 years old. Recent left sided chest pain -- hx of breast ca in 2018 TECHNIQUE: PA and lateral views of the chest. COMPARISON: 01/18/2018 FINDINGS: The lungs are clear and expanded. There is no demonstrated pleural abnormality. Normal size heart. Normal mediastinum and kriss. Normal visualized pulmonary arteries. Normal visualized aortic arch and descending thoracic aorta. Normal visualized thoracic spine. Normal visualized ribs, clavicles, and shoulders. There is no demonstrated abnormality of the visualized soft tissue structures of the upper abdomen. RAD/Chest PA and Lateral IMPRESSION: No acute pulmonary process Electronically Signed: Chris Ballesteros MD at 17:18 EST , Service support ,
== END ==
PROVIDERS: PCP Family Medicine; Referring Provider Family Medicine; Visit Provider Family Medicine
DX: R07.89 Other chest pain (principal)
CPT/HCPCS: 71046

== ENCOUNTER → 2019-12-10 13:45 | Outpatient (CLI) | payer MEDICARE, OTHER, SELFPAY ==
[2018-08-15 08:02] VITALS: BMI 39.4
[2019-11-26 13:43] VITALS: BMI 38.2
[2019-12-10 16:42] LABS: T4 Free Direct 1.32 ng/dL (0.76-1.46); Thyroid Stim Hormone (TSH) 0.39 uIU/mL (0.358-3.74)
== END ==
PROVIDERS: PCP Family Medicine; Visit Provider Family Medicine
DX: E03.9 Hypothyroidism, unspecified (principal)
CPT/HCPCS: 36415; 84439; 84443

== ENCOUNTER → 2019-12-24 13:38 | Outpatient (CLI) | payer MEDICARE, OTHER, SELFPAY ==
[2018-08-15 08:02] VITALS: BMI 39.4
[2019-11-26 13:43] VITALS: BMI 38.2
--- NOTE | 2019-12-24 13:39 | US_ITS ---
STUDY: SUPERFICIAL ULTRASOUND - RIGHT TRUNK REASON FOR EXAM: Female, 64 years old. Palpable lump near mastectomy site TECHNIQUE: A superficial ultrasound was performed with real-time and static mahoney-scale imaging. COMPARISON: None. FINDINGS: Sonographic evaluation of the area of concern shows a 0.9 x 0.8 x 0.8 isoechoic well-defined nodule at the end of the patient''s mastectomy scar, likely a lipoma. No suspicious architectural distortion, hyperemia or fluid. US/Chest IMPRESSION: Likely subcutaneous lipoma related to patient''s mastectomy scar. No suspicious sonographic findings Electronically Signed: Chris Ballesteros MD at 16:00 EST , Service support ,
== END ==
PROVIDERS: PCP Family Medicine; Referring Provider Surgery; Visit Provider Surgery
DX: R22.2 Localized swelling, mass and lump, trunk (principal)
CPT/HCPCS: 76604

== ENCOUNTER → 2020-05-17 | Outpatient (CLI) | payer MEDICARE, OTHER, SELFPAY ==
[2018-08-15 08:02] VITALS: BMI 39.4
[2020-02-25 13:07] VITALS: BMI 37.8
[2020-05-17 13:27] LABS: Anion Gap 5 (5-15); BUN 24 mg/dL (7-18); BUN/Creat Ratio 27.7 RATIO (10-20); Chloride 103 mmol/L (98-107); Creatinine, Serum 0.87 mg/dL (0.55-1.02); EST Glomerular Filtration Rate 70 mL/min (>60); Est Glom Filt Rate - Afr Amer 84 mL/min (>60); Glucose 162 mg/dL (74-106); Potassium 4.5 mmol/L (3.5-5.1); Sodium Level 137 mmol/L (136-145); T4 Free Direct 1.54 ng/dL (0.76-1.46); Thyroid Stim Hormone (TSH) 0.08 uIU/mL (0.358-3.74)
== END | disposition home or self-care (01) ==
LOC: BFHLAB 09:48
PROVIDERS: PCP Family Medicine; Visit Provider Family Medicine
DX: E03.9 Hypothyroidism, unspecified (principal); I10 Essential (primary) hypertension
CPT/HCPCS: 36415; 80048; 84439; 84443

== ENCOUNTER → 2020-06-23 11:24 | Outpatient (CLI) | payer MEDICARE, OTHER, SELFPAY ==
[2018-08-15 08:02] VITALS: BMI 39.4
[2020-05-26 13:45] VITALS: BMI 37.5
--- NOTE | 2020-06-23 11:27 | BD_ITS ---
STUDY: DUAL ENERGY X-RAY ABSORPTIOMETRY / DXA REASON FOR EXAM: Female, 64 years old. 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 COMPARISON: Comparison is made with prior study dated 06/19/2018 FINDINGS: Lumbar Spine (L1-L4): g/cm2 (1.380) / T-score (1.7) / Z-score (3.3) Findings are suggestive of normal bone density with a low fracture risk. Left Femur Total: g/cm2 (1.370) / T-score (2.9) / Z-score (4.1) Left Femoral Neck: g/cm2 (1.276) / T-score (1.7) / Z-score (3.2) Right Femur Total: g/cm2 (1.320) / T-score (2.5) / Z-score (3.7) Right Femoral Neck: g/cm2 (1.255) / T-score (1.6) / Z-score (3.0) The T-Scores on the most recent prior examination were: Lumbar Spine (L1-L4): There has been worsening of bone density since the previous examination. Left Femur Total: which represents a worsening of 1.5%. Right Femur Total: which represents a worsening of 3.6%. BD/Dexa Bone Density Study IMPRESSION: The patient is considered normal as outlined below according to World Chandana Organization (WHO) criteria with a low fracture risk. There has been worsening of bone density since the previous examination. Reference Information: The T-score is the number of standard deviations above or below the standard which is normal for young adults at their peak bone mineral density. The World Health Organization (WHO) interprets the T-scores as follows: Above -1 Normal bone density Between -1 and -2.5 Osteopenia Equal to / or below -2.5 Osteoporosis As a practical clinical guideline, osteopenia may be graded as follows: Mild -1 through -1.5 Moderate -1.6 through -2.0 Severe -2.1 through -2.4 The Z-score is the number of standard deviations above or below age-matched controls. A Z-score of less than -1.5 would be considered abnormal. References: 1. NIH Osteoporosis and Related Bone Diseases http://www.osteo.org 2. International Society for Clinical Densitometry http://www.iscd.org 3. National Osteoporosis Foundation http://www.nof.org Electronically Signed: Bryan Aguila, at 7:25 EDT , Service support ,
== END ==
PROVIDERS: PCP Family Medicine; Referring Provider Internal Medicine Hematology & Oncology; Visit Provider Internal Medicine Hematology & Oncology
DX: C50.911 Malignant neoplasm of unspecified site of right female breast (principal); C50.912 Malignant neoplasm of unspecified site of left female breast; M81.0 Age-related osteoporosis without current pathological fracture
CPT/HCPCS: 77080

== ENCOUNTER → 2020-09-01 10:45 | Outpatient (CLI) | payer MEDICARE, OTHER, SELFPAY ==
[2018-08-15 08:02] VITALS: BMI 39.4
[2020-02-25 13:07] VITALS: BMI 37.8
[2020-05-26 13:45] VITALS: BMI 37.5
[2020-09-01 12:58] LABS: Anion Gap 8 (5-15); BUN 20 mg/dL (7-18); BUN/Creat Ratio 22.1 RATIO (10-20); Calcium,Total 9.9 mg/dL (8.5-10.1); Chloride 104 mmol/L (98-107); Creatinine, Serum 0.91 mg/dL (0.55-1.02); EST Glomerular Filtration Rate 66 mL/min (>60); Est Glom Filt Rate - Afr Amer 80 mL/min (>60); Glucose 117 mg/dL (74-106); Potassium 4.2 mmol/L (3.5-5.1); Sodium Level 140 mmol/L (136-145); T4 Free Direct 1.38 ng/dL (0.76-1.46); Thyroid Stim Hormone (TSH) 1.14 uIU/mL (0.358-3.74)
== END ==
PROVIDERS: PCP Family Medicine; Visit Provider Family Medicine
DX: E03.9 Hypothyroidism, unspecified (principal); I10 Essential (primary) hypertension; E11.9 Type 2 diabetes mellitus without complications
CPT/HCPCS: 36415; 80048; 84439; 84443

== ENCOUNTER 2021-04-11 07:32 | Day surgery (SDC) | payer MEDICARE, OTHER, SELFPAY ==
[2018-08-15 08:02] VITALS: BMI 39.4
[2021-03-07 14:51] VITALS: BMI 35.5
[2021-04-11] VITALS (7 sets, daily range): BP systolic 100–166; BP diastolic 56–85; PULSE 81–102; RESP 16; TEMP 35.7–36.1; O2SAT 95–97; BMI 35.6
--- NOTE | 2021-04-11 07:43 | HP.PCM_ITS ---
HPI - General HPI Narrative KODI POWELL, is a 65 F who presents for a colonoscopy. Patient's last colonoscopy was 03/30/[address] Hernadez did have a tubular adenoma as well as a hyperplastic polyp at that time. Patient is recommended follow-up in 5 years. Patient states she still has the diarrhea but is much improved only has it maybe once a week. Patient has been on Protonix 40 mg p.o. daily due to the left upper quadrant pain which has improved per patient. Patient denies any family history of colon cancer. [facility] Medical History (Updated 04/11/21 @ 07:[address] Shira August MD) Arthritis Back pain Bilateral malignant neoplasm of breast in female Breast cancer Cancer Diabetes DJD (degenerative joint disease) Dyslipidemia Former smoker High cholesterol HTN (hypertension) Hx of vaginal delivery Hypothyroid Malignant neoplasm of left female breast Malignant neoplasm of right female breast Neuropathy PORT REMOVED Prerenal azotemia Regional lymph node metastasis present Sleep apnea Thyroid disease Wears glasses Home Medications levothyroxine 112 mcg tablet 125 mcg PO QDAY tab 11/30/17 [History Last Taken 01/18/18 07:00] metformin 500 mg tablet 1,000 mg PO BID 11/30/17 [History Last Taken Unknown] multivitamin 1 cap PO QDAY 11/30/17 [History Last Taken Unknown] celecoxib 200 mg PO DAILY 12/26/17 [History Last Taken Unknown] simvastatin 20 mg PO QHS 12/26/17 [History Last Taken Unknown] ascorbic acid (vitamin C) 1,000 mg PO DAILY 01/09/18 [History Last Taken Unknown] Bilateral Breast Prosthesis 1 unit .MEDSUPPLY 06/26/18 [History Last Taken Unknown] Bilateral Leisure Breast Form 1 unit .MEDSUPPLY 06/26/18 [History Last Taken Unknown] Mastectomy bras 1 unit .ROUTE .MEDSUPPLY 06/26/18 [History Last Taken Unknown] loratadine 10 mg PO DAILY 08/15/18 [History Last Taken Unknown] cyanocobalamin (vitamin B-12) 500 mcg PO DAILY@0800 02/19/19 [History Last Taken Unknown] magnesium 30 mg PO DAILY 02/19/19 [History Last Taken Unknown] sour alba extract 7,000 mg PO DAILY 05/21/19 [History Last Taken Unknown] anastrozole 1 mg PO DAILY 90 Days #90 tab 09/22/20 [Rx Last Taken Unknown] pantoprazole 40 mg tablet,delayed release 40 mg PO DAILY #21 tab 03/07/21 [Rx Last Taken Unknown] Allergy/AdvReac Type Severity Reaction Status Date / Time codeine AdvReac Severe Vomiting Verified 04/11/21 07:55 Penicillins AdvReac Severe rash Verified 04/11/21 07:55 fiorinol AdvReac Severe Vomiting Uncoded 04/11/21 07:55 Family History Father Diabetes Heart disease Hypertension Cancer prostate and lymph nodes Sister Breast cancer Thyroid disorder Surgical History (Updated 04/05/21 @ 11:19 by Holli Allen) Hx of tonsillectomy Hx of tubal ligation port placement S/P appendectomy S/P bilateral mastectomy (~12/28/17) S/P cholecystectomy S/P colonoscopy S/P hysterectomy S/P tonsillectomy Social History household members: spouse and children housing: house Smoking Status: Former smoker quit date: 09/05/84 second hand exposure: No alcohol intake: never substance use type: does not use erika/rastafarian: [employer] seatbelt use: always do you feel safe at home: Yes Past Medical/Surgical History Planned Operation Planned Operative Procedure/s: COLONOSCOPY S.O.S: No Previous Hospitalizations/Surgeries HX Hospitalizations: No HX of Surgeries: COLONOSCOPY X2 APPENDECTOMY CHOLECYSTECTOMY HYSTERECTOMY TONSILLECTOMY TUBAL LIGATION X3 VAGINAL BIRTHS MASTECTOMY BILAT 12/2017 Any Problems With Anesthesia: Yes (NAUSEA) You/Your Family Experience Fever (Hyperthermia) With Anes: No Cholinesterase deficiency: No Cardiovascular Hx Chest Pain within Last 2 months: No Hx of Irregular Heartbeat and/or Afib: No Hx Heart Attack: No Hx Congestive Heart Failure: No Hx Rheumatic Fever: No Hx Hypertension: No (NO MEDS-) Hx Internal Defibrillator: No Hx Pacemaker: No Hx Cardiac Catheterization: No Hx Cardiac Surgery/Stents/Etc.: No Hx Stress Test: Yes (NUCLEAR STRESS TEST AROUND 5 YEARS AGO, NORMAL) Hx Pain in Legs when Walking/Leg Cramps: No Respiratory Chronic Cough: No HX of Shortness of Breath: Yes (UNABLE TO WALK UP TWO FLIGHTS OF STAIR) Hoarseness: No Hx Chronic Obstructive Pulmonary Disease (COPD): No Hx Asthma: No Hx Emphysema: No Hx Sleep Apnea: Yes (DOESN'T USE) CPAP: No BIPAP: No Hx Respiratory Tract Infection/Cold (presently): No (.) Result (for STOP score): Positive Hx Smoking: Yes (QUIT IN 1983, SMOKED FOR 15 YEARS) Smoking Status: Former smoker Gastrointestinal Hx Gastroesophageal Reflux: No Hx Gastrointestinal Disorders: No Hx Gastrointestinal Bleed: No Hx Ulcer: No Hx Hiatal Hernia: No Difficulty Chewing/Swallowing: No Special diet followed at home: No Hx Unplanned Weight Loss of 20#: No HX Unplanned Weight Gain of 20#: No Neurological Hx Seizures: No HX Syncope/Blackout Spells/Unconsciousness: No Hx Transient Ischemic Attacks (TIA): No Hx Multiple Sclerosis: No Hx Parkinson's Disease: No Hx Head/Neck Injury: No Hx Headaches: Yes (MIGRAINES IN THE PAST) Hx Back Injury/Pain: Yes (BACK PAIN) Recent Onset of Speech Difficulty: No Restless Legs: No Does patient have nerve stimulator: No Blood Disorder Hx Leukemia: No Bleeding Tendencies: No Hx Deep Vein Thrombosis: No Hx High Cholesterol: Yes (ON MEDS) Blood Transmitted Disease: No Hx Hepatitis: No Hx Cirrhosis: No Hx Anemia: No Hx Blood Disorders: No Reproduction Is Patient Lactating: No Hx Hysterectomy: Yes Hx Tubal Ligation: Yes Are You Post Menopause: Yes Genitourinary Hx Renal Disease: No Musculoskeletal Hx Arthritis: Yes (OA, ON MEDICATION) Hx Rheumatoid Arthritis: No Hx Gout: No Recent Onset of an Orthopedic Problem: No Endocrine Hx Diabetes: Yes (ORAL MEDICATIONS) Insulin: No Thyroid Disease: Yes (ON MEDICATION) Hx Steroid Therapy: No Psycho/Social Hx Substance Use: No Hx Alcohol Use: No Hx Anxiety: No Hx Depression: No Mental Illness: No Hx Dementia: No Miscellaneous Hx Cancer: Yes (BREAST CANCER) Recent Exposure to Contagious Disease: No Hx of C-Diff: No Any Loose Teeth: No Allergies codeine Adverse Reaction (Severe, Verified 04/11/21 07:55) Vomiting Penicillins Adverse Reaction (Severe, Verified 04/11/21 07:55) rash fiorinol Adverse Reaction (Severe, Uncoded 04/11/21 07:55) Vomiting Discharge Is Pt Admitted From a Jail, or a Residential: No After D/C, Where Do you Plan to Go: Return Home From the PAT History Number of Risk Factors: 4 Vital Signs Vital Signs Vital Signs: Weight Body Mass Index (BMI) 35.5 Physical Exam Const alert, oriented x3 and no apparent distress HEENT normocephalic and head/scalp atraumatic Resp normal respiratory effort Cardio regular rate GI soft to palpation and non-tender; Negative for non-distended Palpation: Negative for guarding Extremity no clubbing, cyanosis or edema Neuro CN's II-XII intact bilaterally Psych mental status grossly normal Assessment & Plan Assessment/Plan (1) Diarrhea: (2) GERD (gastroesophageal reflux disease): PLAN: We will send patient as prescription for Protonix 20 mg from the 40 mg daily. Procedure Criteria Type of Procedure Procedure Type: Elective Elective Risks - COVID COVID Risk Discussion: The surgeon/proceduralist and patient have discussed in detail the risk of exposure to and/or potential harm posed by the COVID-19 virus with having a surgery/procedure at this time versus the risk of delaying the surgery/procedure. It is not possible to know either the risk of delaying the surgery or procedure or chance of getting an infection with perfect accuracy, but a joint decision was made between the patient and the surgeon/proceduralist to proceed at this time with the scheduled surgery/procedure as indicated on the consent form. Surgery Risks - Colonoscopy Risks Include but are not Limited To: Risks include but are not limited to: Bleeding, perforation requiring further surgery, inability to complete colonoscopy requiring barium enema.
--- NOTE | 2021-04-11 08:00 | COLBX_PTH ---
PATIENT: KODI POWELL LOC: EN U#:[id number] AGE/SX: 65/F ROOM: RE04/11/[address]: Dr. Shira August MD : 1955 BED: DIS: 04/11/2021 SPEC #: [id number] RECD: 04/11/21 09:29 STATUS: MAIKEL CLARK #: [id number] MARCY: 04/11/21 08:[address]: Shira August DEPT: SURGICAL PATHOLOGY RECD BY: Val García ENTERED: 04/11/21 09:46 SP TYPE: COLON BX OTHR DR: Dr. Boone Lacey MD Tissues: COLON BIOPSY Procedures: Surgery Specimen Level IV HEADER OPERATION: Colonoscopy (MAC) PRE-OP DIAGNOSIS: Diarrhea, GERD TISSUE SUBMITTED: Random colonic biopsy MICROSCOPIC DIAGNOSIS Colon, random biopsy: Fragments of colonic mucosa, no pathologic diagnosis. ROSANNA:flash 04/12/2021 MICROSCOPIC DESCRIPTION Slides are reviewed. GROSS DESCRIPTION Received in fixative is one container labeled with the patient's name and designated random colonic biopsy. The specimen consists of multiple irregular fragments of light fabian soft tissue that in aggregate measure 0.9 x 0.3 x 0.1 cm. The specimen is totally submitted in one cassette. / SJ:flash 04/11/21 TC:4 CPT: 48145
[2021-04-11] MEDS: Lactated Ringers 1,000 ML 100 ML IV (08:03)
[2021-04-11 08:10] LABS: Bedside Glucose 178 mg/dL (70-110)
--- NOTE | 2021-04-11 08:40 | OP.CCLET_ITS ---
04/11/2021 Boone Lacey Re : Colonoscopy procedure for Promise Lainez Dear Deepthi This procedure was performed on Sunday, April 11, 2021. My impressions and recommendations are as follows: Impressions : - Hemorrhoids found on perianal exam. - Non-bleeding external and internal hemorrhoids. - Diverticulosis in the sigmoid colon. - The examination was otherwise normal. - Three random biopsies were obtained in the sigmoid colon, in the descending colon and in the transverse colon. Recommendations : - Discharge patient to home. - High fiber diet. - Continue present medications. - Await pathology results. - Repeat colonoscopy in 10 years for screening purposes. My findings are described in the full procedure note, which is enclosed. If I can be of further assistance, please feel free to contact me at Doctor phone number(s): , Work: . Sincerely, MD Shira Gabriel MD 04/11/2021 8:39:56 AM This report has been signed electronically.
--- NOTE | 2021-04-11 08:40 | OP.COLON_ITS ---
Patient Name: Promise Lainez Procedure Date: 04/11/2021 7:43 AM Date of : 1955 Age: 65 Procedure: Colonoscopy Indications: Diarrhea Providers: Shira August MD Referring MD: Shira August MD Medicines: Monitored Anesthesia Care Patient Profile: This is a 65 year old female. Last Colonoscopy: 2015. Complications: No immediate complications. Procedure: Pre-Anesthesia Assessment: - Prior to the procedure, a History and Physical was performed, and patient medications and allergies were reviewed. The patient's tolerance of previous anesthesia was also reviewed. The risks and benefits of the procedure and the sedation options and risks were discussed with the patient. All questions were answered, and informed consent was obtained. Prior Anticoagulants: The patient has taken no previous anticoagulant or antiplatelet agents. ASA Grade Assessment: Per anesthesia. After reviewing the risks and benefits, the patient was deemed in satisfactory condition to undergo the procedure. After I obtained informed consent, the scope was passed under direct vision. Throughout the procedure, the patient's blood pressure, pulse, and oxygen saturations were monitored continuously. The Colonoscope was introduced through the anus and advanced to the cecum, identified by the ileocecal valve. The colonoscopy was performed without difficulty. The patient tolerated the procedure well. The quality of the bowel preparation was good. Scope In: 8:15:31 AM Scope Withdrawal Time 0 hours 12 minutes 15 seconds Scope Out: 8:33:53 AM Total Procedure Duration Time 0 hours 18 minutes 22 seconds Findings: Hemorrhoids were found on perianal exam. Non-bleeding external and internal hemorrhoids were found. The hemorrhoids were Grade I (internal hemorrhoids that do not prolapse). A few small-mouthed diverticula were found in the sigmoid colon. Three random biopsies were obtained with cold forceps for histology in a targeted manner in the sigmoid colon, in the descending colon and in the transverse colon. The exam was otherwise without abnormality. Impression: - Hemorrhoids found on perianal exam. - Non-bleeding external and internal hemorrhoids. - Diverticulosis in the sigmoid colon. - The examination was otherwise normal. - Three random biopsies were obtained in the sigmoid colon, in the descending colon and in the transverse colon. Recommendation: - Discharge patient to home. - High fiber diet. - Continue present medications. - Await pathology results. - Repeat colonoscopy in 10 years for screening purposes. Procedure Code(s): --- Professional --- 55938, Colonoscopy, flexible; with biopsy, single or multiple Diagnosis Code(s): --- Professional --- K64.0, First degree hemorrhoids R19.7, Diarrhea, unspecified K57.30, Diverticulosis of large intestine without perforation or abscess without bleeding CPT copyright 2017 [employer] [employer]. All rights reserved. The codes documented in this report are preliminary and upon stock speculator review may be revised to meet current compliance requirements. MD Shira Gabriel MD 04/11/2021 8:39:56 AM This report has been signed electronically. Number of Addenda: 0 Note Initiated On: 04/11/2021 7:43 AM
== END 2021-04-11 09:46 ==
LOC: EN 07:32 → AC 07:33
PROVIDERS: PCP Family Medicine; Referring Provider Surgery; Visit Provider Surgery
PROC: 0DJD8ZZ Inspection of Lower Intestinal Tract, Via Natural or Artificial Opening Endoscopic (ICD-10-PCS; CPT 45378; principal; 2021-04-11 07:55)
DX: K57.30 Diverticulosis of large intestine without perforation or abscess without bleeding (principal); K64.0 First degree hemorrhoids; R19.7 Diarrhea, unspecified; M19.90 Unspecified osteoarthritis, unspecified site; I10 Essential (primary) hypertension; E03.9 Hypothyroidism, unspecified; E11.40 Type 2 diabetes mellitus with diabetic neuropathy, unspecified; E78.5 Hyperlipidemia, unspecified; K21.9 Gastro-esophageal reflux disease without esophagitis; G47.30 Sleep apnea, unspecified; Z79.899 Other long term (current) drug therapy; Z20.828 Contact with and (suspected) exposure to other viral communicable diseases; Z85.3 Personal history of malignant neoplasm of breast; Z86.010 Personal history of colon polyps; Z79.84 Long term (current) use of oral hypoglycemic drugs; Z78.0 Asymptomatic menopausal state; Z90.13 Acquired absence of bilateral breasts and nipples; Z87.891 Personal history of nicotine dependence
CPT/HCPCS: 45380; 82962; 87426; 88305; C9803; J7120

== ENCOUNTER 2021-12-06 08:23 | Outpatient (CLI) | payer MEDICARE, OTHER, SELFPAY ==
[2018-08-15 08:02] VITALS: BMI 39.4
[2021-12-06 12:43] LABS: Thyroid Stim Hormone (TSH) 0.55 uIU/mL (0.358-3.74)
== END 2021-12-06 23:59 | disposition home or self-care (01) ==
LOC: BIMLAB 08:24
PROVIDERS: PCP Internal Medicine; Referring Provider Internal Medicine; Visit Provider Internal Medicine
DX: E03.9 Hypothyroidism, unspecified (principal)
CPT/HCPCS: 36415; 84443

== ENCOUNTER 2022-01-24 08:08 | Outpatient (CLI) | payer MEDICARE, OTHER, SELFPAY ==
[2018-08-15 08:02] VITALS: BMI 39.4
[2022-01-24 12:45] LABS: ALB/GLOB Ratio 1.1 RATIO (0.9-2.4); AST(SGOT) 30 U/L (15-37); Alanine Aminotransfer ALT/SGPT 38 U/L (13-56); Albumin, Serum 3.6 g/dL (3.2-5.0); Alkaline Phosphatase 75 U/L (45-117); Anion Gap 6 (5-15); BUN 21 mg/dL (7-18); BUN/Creat Ratio 21.3 RATIO (10-20); Calcium,Total 9.6 mg/dL (8.5-10.1); Chloride 106 mmol/L (98-107); Cholesterol 118 mg/dL (200); Creatinine, Serum 0.98 mg/dL (0.55-1.02); EST Glomerular Filtration Rate 60 mL/min (>60); Est Glom Filt Rate - Afr Amer 72 mL/min (>60); Globulin 3.3 g/dL (2.2-4.2); Glucose 141 mg/dL (74-106); High Density Lipoprotein 35 mg/dL; Potassium 4.9 mmol/L (3.5-5.1); Protein, Total 6.9 g/dL (6.4-8.2); Sodium Level 140 mmol/L (136-145); Triglycerides 124 mg/dL; Very Low Density Lipoprotein 25 mg/dL (5-40)
== END 2022-01-24 23:59 | disposition home or self-care (01) ==
LOC: BIMLAB 08:10
PROVIDERS: PCP Internal Medicine; Referring Provider Internal Medicine; Visit Provider Internal Medicine
DX: E11.69 Type 2 diabetes mellitus with other specified complication (principal)
CPT/HCPCS: 36415; 80053; 80061

== ENCOUNTER → 2022-03-09 | Outpatient (CLI) | payer MEDICARE, OTHER, SELFPAY ==
[2018-08-15 08:02] VITALS: BMI 39.4
--- NOTE | 2022-03-09 08:35 | NM_ITS ---
EXAM: NM BONE SCAN CLINICAL INDICATION: new back pain, h/o breast cancer TECHNIQUE: Anterior and posterior 3 hour delayed images of the whole body were obtained following the intravenous administration of Tc99m MDP. This report was created using [employer] report [employer] technology. COMPARISON: None. FINDINGS: SKULL/FACIAL BONES: No suspicious osseous lesions to suggest metastatic disease. SPINE: Unremarkable. No suspicious osseous lesions to suggest metastatic disease. RIBS: Unremarkable. No suspicious osseous lesions to suggest metastatic disease. LONG BONES: Unremarkable. No suspicious osseous lesions to suggest metastatic disease. PELVIS: Unremarkable. No suspicious osseous lesions to suggest metastatic disease. JOINTS: Mild increased activity noted within both shoulders and knees likely related to arthritic change. SOFT TISSUES: Unremarkable. RENAL/BLADDER: Unremarkable. Prompt symmetric renal uptake. Urinary bladder partially filled with radiopharmaceutical. NM/Bone Scan Whole Body IMPRESSION: No evidence of metastatic disease. Uptake within the shoulders and knees consistent with arthritic change. Electronically Signed: David Li MD at 14:14 EDT ,
== END | disposition home or self-care (01) ==
LOC: NM 08:32
PROVIDERS: PCP Internal Medicine; Visit Provider Student in an Organized Health Care Education/Training Program
DX: M54.2 Cervicalgia (principal); C50.912 Malignant neoplasm of unspecified site of left female breast
CPT/HCPCS: 78306; A9503

== ENCOUNTER → 2022-06-14 | Outpatient (CLI) | payer MEDICARE, OTHER, SELFPAY ==
[2018-08-15 08:02] VITALS: BMI 39.4
[2022-06-14 15:50] LABS: Anion Gap 6 (5-15); BUN 26 mg/dL (7-18); BUN/Creat Ratio 26.4 RATIO (10-20); Calcium,Total 10.2 mg/dL (8.5-10.1); Chloride 107 mmol/L (98-107); Creatinine, Serum 0.98 mg/dL (0.55-1.02); EST Glomerular Filtration Rate 60 mL/min (>60); Est Glom Filt Rate - Afr Amer 72 mL/min (>60); Glucose 124 mg/dL (74-106); Sodium Level 142 mmol/L (136-145)
== END | disposition home or self-care (01) ==
LOC: BIMLAB 15:01
PROVIDERS: PCP Internal Medicine; Referring Provider Internal Medicine; Visit Provider Internal Medicine
DX: I10 Essential (primary) hypertension (principal)
CPT/HCPCS: 36415; 80048

== ENCOUNTER → 2022-06-27 | Outpatient (CLI) | payer MEDICARE, OTHER, SELFPAY ==
[2018-08-15 08:02] VITALS: BMI 39.4
--- NOTE | 2022-06-27 10:57 | BD_ITS ---
STUDY: DUAL ENERGY X-RAY ABSORPTIOMETRY / DXA REASON FOR EXAM: Female, 66 years old. Screening for osteoporosis TECHNIQUE: Bone Mineral Density (BMD) measurements of lumbar spine and bilateral hips were obtained. COMPARISON: Comparison is made with prior study dated 06/23/2020. FINDINGS: Lumbar Spine (L1-L4): g/cm2 (1.263) / T-score (2.0) / Z-score (3.9) Findings are suggestive of normal bone density with a low fracture risk. Left Femur Total: g/cm2 (1.251) / T-score (2.5) / Z-score (3.9) Left Femoral Neck: g/cm2 (1.058) / T-score (1.9) / Z-score (3.5) Right Femur Total: g/cm2 (1.164) / T-score (1.8) / Z-score (3.2) Right Femoral Neck: g/cm2 (1.041) / T-score (1.7) / Z-score (3.4) The T-Scores on the most recent prior examination were: Lumbar Spine (L1-L4): There has been improvement of bone density since the previous examination. Left Femur Total: which represents a worsening of 3.3%. Right Femur Total: which represents a worsening of 6.4%. BD/Dexa Bone Density Study IMPRESSION: The patient is considered normal as outlined below according to World [employer] Organization (WHO) criteria with a low fracture risk. There has been worsening of bone density since the previous examination. Reference Information: The T-score is the number of standard deviations above or below the standard which is normal for young adults at their peak bone mineral density. The World Health Organization (WHO) interprets the T-scores as follows: Above -1 Normal bone density Between -1 and -2.5 Osteopenia Equal to / or below -2.5 Osteoporosis As a practical clinical guideline, osteopenia may be graded as follows: Mild -1 through -1.5 Moderate -1.6 through -2.0 Severe -2.1 through -2.4 The Z-score is the number of standard deviations above or below age-matched controls. A Z-score of less than -1.5 would be considered abnormal. References: 1. NIH Osteoporosis and Related Bone Diseases www osteo.org 2. International Society for Clinical Densitometry www iscd.org 3. National Osteoporosis Foundation www nof.org Electronically Signed: Bryan Aguila MD at 13:38 EDT ,
== END | disposition home or self-care (01) ==
LOC: OPBD 10:52
PROVIDERS: PCP Internal Medicine; Visit Provider Nurse Practitioner Family
DX: M85.80 Other specified disorders of bone density and structure, unspecified site (principal); Z13.820 Encounter for screening for osteoporosis; Z79.811 Long term (current) use of aromatase inhibitors
CPT/HCPCS: 77080

== ENCOUNTER → 2022-11-15 | Outpatient (CLI) | payer MEDICARE, OTHER, SELFPAY ==
[2018-08-15 08:02] VITALS: BMI 39.4
[2022-11-15 16:58] LABS: Anion Gap 6 (5-15); BUN 27 mg/dL (7-18); Calcium,Total 10.4 mg/dL (8.5-10.1); Chloride 107 mmol/L (98-107); Creatinine, Serum 1.04 mg/dL (0.55-1.02); EST Glomerular Filtration Rate 56 mL/min (>60); Est Glom Filt Rate - Afr Amer 68 mL/min (>60); Glucose 148 mg/dL (74-106); Sodium Level 142 mmol/L (136-145); Thyroid Stim Hormone (TSH) 0.26 uIU/mL (0.358-3.74)
[2022-11-15 17:13] LABS: Microalbumin,Random Urine 30.1 mg/L (NO RANGE EST.); Microalbumin:Creatinine Ratio 14.5 mg/g CRE (<30 mg/g CRE)
== END | disposition home or self-care (01) ==
PROVIDERS: PCP Internal Medicine; Referring Provider Internal Medicine; Visit Provider Internal Medicine
DX: E11.9 Type 2 diabetes mellitus without complications (principal); E03.9 Hypothyroidism, unspecified
CPT/HCPCS: 36415; 80048; 82043; 82570; 84443

== ENCOUNTER → 2022-12-27 | Outpatient (CLI) | payer MEDICARE, OTHER, SELFPAY ==
[2018-08-15 08:02] VITALS: BMI 39.4
[2022-12-27 13:13] LABS: Anion Gap 6 (5-15); BUN 25 mg/dL (7-18); Calcium,Total 10.2 mg/dL (8.5-10.1); Chloride 106 mmol/L (98-107); EST Glomerular Filtration Rate 59 mL/min (>60); Est Glom Filt Rate - Afr Amer 71 mL/min (>60); Glucose 145 mg/dL (74-106); Potassium 5.1 mmol/L (3.5-5.1); Sodium Level 141 mmol/L (136-145); Thyroid Stim Hormone (TSH) 0.47 uIU/mL (0.358-3.74)
== END | disposition home or self-care (01) ==
PROVIDERS: PCP Internal Medicine; Referring Provider Internal Medicine; Visit Provider Internal Medicine
DX: E03.9 Hypothyroidism, unspecified (principal); E11.69 Type 2 diabetes mellitus with other specified complication
CPT/HCPCS: 36415; 80048; 84443

== ENCOUNTER → 2023-05-10 | Outpatient (CLI) | payer MEDICARE, OTHER, SELFPAY ==
[2018-08-15 08:02] VITALS: BMI 39.4
[2023-05-10 16:58] LABS: ALB/GLOB Ratio 1.2 RATIO (0.9-2.4); AST(SGOT) 22 U/L (15-37); Alanine Aminotransfer ALT/SGPT 33 U/L (13-56); Albumin, Serum 3.7 g/dL (3.2-5.0); Alkaline Phosphatase 59 U/L (45-117); Anion Gap 7 (5-15); BUN 26 mg/dL (7-18); BUN/Creat Ratio 27.2 RATIO (10-20); Calcium,Total 9.6 mg/dL (8.5-10.1); Chloride 104 mmol/L (98-107); Creatinine, Serum 0.96 mg/dL (0.55-1.02); EST Glomerular Filtration Rate 62 mL/min (>60); Est Glom Filt Rate - Afr Amer 75 mL/min (>60); Glucose 118 mg/dL (74-106); Magnesium 1.7 mg/dL (1.6-2.6); Protein, Total 6.7 g/dL (6.4-8.2); Sodium Level 143 mmol/L (136-145); Thyroid Stim Hormone (TSH) 0.18 uIU/mL (0.358-3.74)
== END | disposition home or self-care (01) ==
LOC: BIMLAB 15:39
PROVIDERS: PCP Internal Medicine; Referring Provider Internal Medicine; Visit Provider Internal Medicine
DX: E03.9 Hypothyroidism, unspecified (principal); E11.9 Type 2 diabetes mellitus without complications; R00.2 Palpitations
CPT/HCPCS: 36415; 80053; 82043; 82570; 83735; 84443

== ENCOUNTER → 2023-05-17 | Outpatient (CLI) | payer MEDICARE, OTHER, SELFPAY ==
[2018-08-15 08:02] VITALS: BMI 39.4
== END | disposition home or self-care (01) ==
LOC: PSN 12:50
PROVIDERS: PCP Internal Medicine; Referring Provider Internal Medicine; Visit Provider Internal Medicine
DX: R00.2 Palpitations (principal)
CPT/HCPCS: 93225; 93226

== ENCOUNTER 2023-05-24 10:00 | Outpatient (RCR) | payer MEDICARE, OTHER, SELFPAY ==
[2018-08-15 08:02] VITALS: BMI 39.4
--- NOTE | 2023-04-26 16:10 | HP.PTEVAL_ITS ---
Patient's Visit Information Visit Information Visit Information: KODI POWELL is a 67 year old F referred to Physical Therapy by Dr. Florencio Gates DO with a diagnosis of B knee OA. Date of Evaluation: 04/26/23 Physical Therapist: Torsten Cali, PT, ATC Visit Plan Frequency: 2-3x /Week Duration: 4-6 Weeks Plan: B knee stretching and strengthening, balance and proprio, core strengthening, bike, and HEP Subjective Subjective: Pt reports she has had B knee pain for several years. Pt notes she stepped off a curb with her R LE at that time and her knee locked up on her. Pt notes she has had pain ever since. Pt notes she has had xrays in both of her knees with the results being OA. Pt reports she was told her R knee is worse than her L knee. Pt reports her R knee will still lock up on her and pop if she sits for a long period of time. Pt reports she has stairs at home and has to negotiate them one step at a time. Pt reports she had a cortisone injection in both of her knees 2 weeks ago that has helped with her pain. Pt reports sleep difficulty on occasion secondary to knee pain. Pt reports she does have some neuropathy in her feet, mostly her toes, secondary to the chemo she had. Pt reports she cant shop for a long period of time secondary to pain. 1/10 pain while sitting here at rest, 7/10 pain at worst (prolonged weight bearing activity) Pain B knees: Pain Intensity (Out of 10): 1 Pain Intensity Range: 7 Objective Objective: Neuro: B LE sensation is WNL to light touch Girth at joint line: R knee 38 cm, L knee 3 cm Palpation: Pain along medial and lateral joint line. Crepitus with AROM. No obvious deformity at this time. ROM: L knee 0-10-115, R knee 0-20-115 degrees MMT: L knee flex= 16, ext= 34 #F; R knee flex= 14, L knee ext= 13 #F Gait: Pt is able to ambulate greater than 1000 feet without difficulty Special tests: Pos mcmurrays, pos compression test Balance/Special Test Scores Lower Extremity Functional Score: 51 Goals Goal 1:: Decrease B knee pain x 50% to aid with sleep Goal Time Frame: 4-6 Weeks Goal 2:: Increase B knee strength x 10 #F to aid with stair negotiation Goal Time Frame: 4-6 Weeks Goal 3:: I with HEP Goal Time Frame: 4-6 Weeks Rehabilitation Potential Physical Therapy Diagnosis: Pt has B knee pain, weakness, and limited ROM secondary to B knee OA Rehabilitation Potential: Good Anticipated Interventions Patient/Client Instruction: Educate patient on: Condition and Plan of Care For the Purpose of:: To improve self management Therapeutic Exercise to Include: Strength training, Endurance training, Balance training, Flexibilty training and Dynamic Lumbar Stabilization For the Purpose of:: To decrease pain, To increase ROM and To improve muscle performance and motor function Cryotherapy (ice pack, ice massage): Yes For the Purpose of:: To decrease pain Text: Thank you for the opportunity to evaluate your patient. For Medicare and Medicare HMO plans, please review the plan of care and approve it. It will need to be FAXED BACK to us at [phone] for Medicare purposes. For Medicare only, by signing this I certify the plan of care. Please let me know if there are questions or concerns regarding this plan of care. Physician Signature: Da te:
--- NOTE | 2023-07-18 12:47 | HP.PTDCSUM ---
Discharge Summary D/C summary: It has been my pleasure to treat KODI POWELL referred by Dr. Florencio Gates DO, with the diagnosis of B knee OA for a total of 9 visit(s). Discharge Date: Please see the following information for a summary of their discharge status. Subjective Subjective: My knee doesnt do what it used to do. It is better now Pain B knees: Pain Intensity (Out of 10): 1 Overall Improvement % Improvement: 80 Objective Objective/Function: B knee pain ranges from 1-3/10 MMT: R knee flex= 33, ext= 22 #F; L knee flex= 22, ext= 26 #F Pt is I with HEP Pt has achieved all goals with the exception to strength, but has mad significant gains at this time. Goals Goal 1:: Decrease B knee pain x 50% to aid with sleep Goal Progress: Goal Met Goal 2:: Increase B knee strength x 10 #F to aid with stair negotiation Goal Progress: Progressing Goal 3:: I with HEP Goal Progress: Goal Met Plan Plan: Discontinue to HEP D/C Information d/c sentence: If there are questions or concerns regarding this patient's physical therapy, please feel free to call me at [phone]. Thank you for the referral of this patient. Sincerely, Torsten Cali, PT, ATC Balance/Gait/Functional tests Balance/Special Test Scores Lower Extremity Functional Score: 60 Improvement % Improvement: 80
== END 2023-05-24 19:00 | disposition home or self-care (01) ==
LOC: PT 10:00
PROVIDERS: PCP Internal Medicine; Referring Provider Orthopaedic Surgery; Visit Provider Orthopaedic Surgery
DX: M17.0 Bilateral primary osteoarthritis of knee (principal)
CPT/HCPCS: 97110; 97161; 97164

== ENCOUNTER → 2023-05-29 | Outpatient (CLI) | payer MEDICARE, OTHER, SELFPAY ==
[2018-08-15 08:02] VITALS: BMI 39.4
== END | disposition home or self-care (01) ==
LOC: BIMLAB 10:17
PROVIDERS: PCP Internal Medicine; Visit Provider Internal Medicine
DX: E03.9 Hypothyroidism, unspecified (principal)
CPT/HCPCS: 36415; 84443

== ENCOUNTER → 2023-07-18 | Outpatient (CLI) | payer MEDICARE, OTHER, SELFPAY ==
[2018-08-15 08:02] VITALS: BMI 39.4
== END | disposition home or self-care (01) ==
LOC: BIMLAB 10:53
PROVIDERS: PCP Internal Medicine; Referring Provider Internal Medicine; Visit Provider Internal Medicine
DX: E03.9 Hypothyroidism, unspecified (principal)
CPT/HCPCS: 36415; 84443

== ENCOUNTER → 2023-08-13 | Outpatient (CLI) | payer MEDICARE, OTHER, SELFPAY ==
[2018-08-15 08:02] VITALS: BMI 39.4
[2023-08-13 17:16] LABS: ALB/GLOB Ratio 1.1 RATIO (0.9-2.4); AST(SGOT) 683 U/L (15-37); Alanine Aminotransfer ALT/SGPT 838 U/L (13-56); Albumin, Serum 3.8 g/dL (3.2-5.0); Alkaline Phosphatase 68 U/L (45-117); Anion Gap 7 (5-15); BUN 23 mg/dL (7-18); BUN/Creat Ratio 19.7 RATIO (10-20); Calcium,Total 9.9 mg/dL (8.5-10.1); Chloride 102 mmol/L (98-107); Creatinine, Serum 1.17 mg/dL (0.55-1.02); EST Glomerular Filtration Rate 49 mL/min (>60); Est Glom Filt Rate - Afr Amer 59 mL/min (>60); Globulin 3.4 g/dL (2.2-4.2); Glucose 144 mg/dL (74-106); Magnesium 1.7 mg/dL (1.6-2.6); Potassium 4.5 mmol/L (3.5-5.1); Protein, Total 7.2 g/dL (6.4-8.2); Sodium Level 140 mmol/L (136-145)
[2023-08-14 11:23] LABS: Hepatitis B Surface Antigen Non-Reactive (Nonreactive); Hepatitis C Antibody Non-Reactive (Nonreactive)
[2023-08-15 14:09] LABS: CMV Acute Antibody IgM < 30.0 AU/mL (0.0-29.9); EBV Acute VCA IgM < 36.0 U/mL (0.0-35.9); EBV-VCA IgG > 600.0 U/mL (0.0-17.9); Hepatitis Be Ag Negative (Negative)
== END | disposition home or self-care (01) ==
LOC: BIMLAB 15:33
PROVIDERS: PCP Internal Medicine; Referring Provider Internal Medicine; Visit Provider Internal Medicine
DX: E11.9 Type 2 diabetes mellitus without complications (principal)
CPT/HCPCS: 36415; 80053; 83735; 86645; 86664; 86665; 86803; 87340; 87350

== ENCOUNTER → 2023-08-20 | Outpatient (CLI) | payer MEDICARE, OTHER, SELFPAY ==
[2018-08-15 08:02] VITALS: BMI 39.4
[2023-08-20 16:56] LABS: AST(SGOT) 20 U/L (15-37); Alanine Aminotransfer ALT/SGPT 103 U/L (13-56); Albumin, Serum 3.5 g/dL (3.2-5.0); Alkaline Phosphatase 57 U/L (45-117); Anion Gap 1 (5-15); BUN 20 mg/dL (7-18); BUN/Creat Ratio 23.8 RATIO (10-20); Calcium,Total 9.5 mg/dL (8.5-10.1); Chloride 107 mmol/L (98-107); Creatinine, Serum 0.84 mg/dL (0.55-1.02); EST Glomerular Filtration Rate 71 mL/min (>60); Est Glom Filt Rate - Afr Amer 86 mL/min (>60); Globulin 3.5 g/dL (2.2-4.2); Glucose 95 mg/dL (74-106); Potassium 4.5 mmol/L (3.5-5.1); Sodium Level 139 mmol/L (136-145)
[2023-08-20 18:32] LABS: Hepatitis B Surface Antigen Non-Reactive (Nonreactive); Hepatitis C Antibody Non-Reactive (Nonreactive)
[2023-08-22 14:09] LABS: CMV Acute Antibody IgM < 30.0 AU/mL (0.0-29.9); EBV Acute VCA IgM < 36.0 U/mL (0.0-35.9); EBV-VCA IgG > 600.0 U/mL (0.0-17.9); Hepatitis Be Ag Negative (Negative)
== END | disposition home or self-care (01) ==
LOC: BIMLAB 13:58
PROVIDERS: PCP Internal Medicine; Visit Provider Internal Medicine
DX: R74.8 Abnormal levels of other serum enzymes (principal); B17.9 Acute viral hepatitis, unspecified
CPT/HCPCS: 36415; 80053; 86645; 86664; 86665; 86803; 87340; 87350

== ENCOUNTER → 2024-03-12 | Outpatient (CLI) | payer MEDICARE, OTHER, SELFPAY ==
[2018-08-15 08:02] VITALS: BMI 39.4
[2024-03-12 14:29] LABS: ALB/GLOB Ratio 1.1 RATIO (0.9-2.4); AST(SGOT) 31 U/L (15-37); Alanine Aminotransfer ALT/SGPT 40 U/L (13-56); Albumin, Serum 3.7 g/dL (3.2-5.0); Alkaline Phosphatase 69 U/L (45-117); Anion Gap 7 (5-15); BUN 24 mg/dL (7-18); BUN/Creat Ratio 23.8 RATIO (10-20); Calcium,Total 9.8 mg/dL (8.5-10.1); Chloride 104 mmol/L (98-107); Cholesterol 168 mg/dL (200); Creatinine, Serum 1.01 mg/dL (0.55-1.02); EST Glomerular Filtration Rate 58 mL/min (>60); Est Glom Filt Rate - Afr Amer 70 mL/min (>60); Globulin 3.3 g/dL (2.2-4.2); Glucose 91 mg/dL (74-106); High Density Lipoprotein 54 mg/dL; Potassium 4.9 mmol/L (3.5-5.1); Sodium Level 140 mmol/L (136-145); Thyroid Stim Hormone (TSH) 2.76 uIU/mL (0.358-3.74); Triglycerides 118 mg/dL; Very Low Density Lipoprotein 24 mg/dL (5-40)
== END | disposition home or self-care (01) ==
LOC: BIMLAB 10:59
PROVIDERS: PCP Internal Medicine; Visit Provider Internal Medicine
DX: E11.69 Type 2 diabetes mellitus with other specified complication (principal); E03.9 Hypothyroidism, unspecified
CPT/HCPCS: 36415; 80053; 80061; 84443

== ENCOUNTER → 2024-06-13 | Outpatient (CLI) | payer MEDICARE, OTHER, SELFPAY ==
[2018-08-15 08:02] VITALS: BMI 39.4
[2024-06-13 12:24] LABS: Absolute Lymphocyte Count 1.86 X10^3/uL (0.83-4.51); Absolute Neutrophil Count 4.8 X10^3/uL (2.0-7.7); Basophil# 0.06 X10^3/uL; Basophil% 0.8 % (0-1); Eosinophil# 0.21 X10^3/uL; Eosinophils% 2.9 % (0-5); Hematocrit 43.1 % (37-47); Lymphocyte # 1.86 X10^3/ul (0.83-4.51); Lymphocyte % 25.4 % (19-41); Mean Corp Hgb Conc 32.5 g/dL (32-36); Mean Corpuscular Hgb 31.9 pg (27.0-32.0); Mean Corpuscular Volume 98.2 fL (81-99); Mean Platelet Vol. 9.5 fl (6.2-12.0); Monocyte# 0.42 X10^3/uL; Monocyte% 5.7 % (0-10); NRBC Flagged by Analyzer 0 % (0-5); Neutrophil # 4.75 X10^3/uL (2.7-7.7); Neutrophil % 65.1 % (47-70); Platelet Count 219 K/mm3 (150-450); RBC Distribution Width CV 12.7 % (11.6-14.6); RBC Distribution Width SD 45.9 fl (35.1-43.9); Red Blood Count 4.39 M/mm3 (4.2-5.4); White Blood Count 7.3 K/mm3 (4.4-11.0)
[2024-06-13 12:51] LABS: ALB/GLOB Ratio 0.9 RATIO (0.9-2.4); AST(SGOT) 23 U/L (15-37); Alanine Aminotransfer ALT/SGPT 34 U/L (13-56); Albumin, Serum 3.5 g/dL (3.2-5.0); Alkaline Phosphatase 66 U/L (45-117); Anion Gap 6 (5-15); BUN 18 mg/dL (7-18); BUN/Creat Ratio 19.1 RATIO (10-20); Calcium,Total 9.9 mg/dL (8.5-10.1); Chloride 104 mmol/L (98-107); Creatinine, Serum 0.94 mg/dL (0.55-1.02); EST Glomerular Filtration Rate 63 mL/min (>60); Est Glom Filt Rate - Afr Amer 76 mL/min (>60); Globulin 3.7 g/dL (2.2-4.2); Glucose 161 mg/dL (74-106); Potassium 4.4 mmol/L (3.5-5.1); Protein, Total 7.2 g/dL (6.4-8.2); Sodium Level 141 mmol/L (136-145)
== END | disposition home or self-care (01) ==
LOC: BIMLAB 11:03
PROVIDERS: PCP Internal Medicine; Referring Provider Internal Medicine; Visit Provider Internal Medicine
DX: I10 Essential (primary) hypertension (principal); E11.69 Type 2 diabetes mellitus with other specified complication
CPT/HCPCS: 36415; 80053; 85025

== ENCOUNTER → 2024-07-08 | Outpatient (CLI) | payer MEDICARE, OTHER, SELFPAY ==
[2018-08-15 08:02] VITALS: BMI 39.4
--- NOTE | 2024-07-08 09:57 | BD_ITS ---
STUDY: DUAL ENERGY X-RAY ABSORPTIOMETRY / DXA REASON FOR EXAM: Female, 68 years old. BREAST CANCER TECHNIQUE: Bone Mineral Density (BMD) measurements of lumbar spine and bilateral hips were obtained. COMPARISON: Comparison is made with prior study dated June 27, 2022. FINDINGS: Lumbar Spine (L1-L4): g/cm2 (1.260) / T-score (1.9) / Z-score (4.0) Findings are suggestive of normal bone density with a low fracture risk. Left Femur Total: g/cm2 (1.265) / T-score (2.6) / Z-score (4.1) Left Femoral Neck: g/cm2 (0.966) / T-score (1.1) / Z-score (2.8) Right Femur Total: g/cm2 (1.137) / T-score (1.6) / Z-score (3.1) Right Femoral Neck: g/cm2 (0.929) / T-score (0.7) / Z-score (2.5) The T-Scores on the most recent prior examination were: Lumbar Spine (L1-L4): There has been no change of bone density since the previous examination. Left Femur Total: which represents an improvement of 1.1%. Right Femur Total: which represents a worsening of 2.3%. BD/Dexa Bone Density Study IMPRESSION: The patient is considered normal as outlined below according to World [employer] Organization (WHO) criteria with a low fracture risk. There has been improvement of bone density since the previous examination. Reference Information: The T-score is the number of standard deviations above or below the standard which is normal for young adults at their peak bone mineral density. The World Health Organization (WHO) interprets the T-scores as follows: Above -1 Normal bone density Between -1 and -2.5 Osteopenia Equal to / or below -2.5 Osteoporosis As a practical clinical guideline, osteopenia may be graded as follows: Mild -1 through -1.5 Moderate -1.6 through -2.0 Severe -2.1 through -2.4 The Z-score is the number of standard deviations above or below age-matched controls. A Z-score of less than -1.5 would be considered abnormal. References: 1. NIH Osteoporosis and Related Bone Diseases www osteo.org 2. International Society for Clinical Densitometry www iscd.org 3. National Osteoporosis Foundation www nof.org Electronically Signed: Bryan Aguila MD at 10:17 EDT ,
== END | disposition home or self-care (01) ==
LOC: OPBD 09:53
PROVIDERS: PCP Internal Medicine; Referring Provider Internal Medicine Hematology & Oncology; Visit Provider Internal Medicine Hematology & Oncology
DX: Z78.0 Asymptomatic menopausal state (principal); C50.919 Malignant neoplasm of unspecified site of unspecified female breast
CPT/HCPCS: 77080

== ENCOUNTER → 2024-09-24 | Outpatient (CLI) | payer MEDICARE, OTHER, SELFPAY ==
[2018-08-15 08:02] VITALS: BMI 39.4
[2024-09-24 17:53] LABS: Absolute Lymphocyte Count 2.14 X10^3/uL (0.83-4.51); Absolute Neutrophil Count 3.6 X10^3/uL (2.0-7.7); Basophil# 0.05 X10^3/uL; Basophil% 0.8 % (0-1); Eosinophil# 0.22 X10^3/uL; Eosinophils% 3.4 % (0-5); Hematocrit 42.7 % (37-47); Hemoglobin 13.8 g/dL (12.0-15.0); Lymphocyte # 2.14 X10^3/ul (0.83-4.51); Lymphocyte % 32.7 % (19-41); Mean Corp Hgb Conc 32.3 g/dL (32-36); Mean Corpuscular Hgb 31.4 pg (27.0-32.0); Mean Corpuscular Volume 97.3 fL (81-99); Monocyte# 0.51 X10^3/uL; Monocyte% 7.8 % (0-10); NRBC Flagged by Analyzer 0 % (0-5); Neutrophil # 3.62 X10^3/uL (2.7-7.7); Neutrophil % 55.1 % (47-70); Platelet Count 218 K/mm3 (150-450); RBC Distribution Width CV 13.2 % (11.6-14.6); RBC Distribution Width SD 47.3 fl (35.1-43.9); Red Blood Count 4.39 M/mm3 (4.2-5.4); White Blood Count 6.6 K/mm3 (4.4-11.0)
[2024-09-24 18:15] LABS: ALB/GLOB Ratio 1.1 RATIO (0.9-2.4); AST(SGOT) 19 U/L (15-37); Alanine Aminotransfer ALT/SGPT 25 U/L (13-56); Albumin, Serum 3.8 g/dL (3.2-5.0); Alkaline Phosphatase 58 U/L (45-117); Anion Gap 6 (5-15); BUN 19 mg/dL (7-18); BUN/Creat Ratio 21.2 RATIO (10-20); Calcium,Total 9.9 mg/dL (8.5-10.1); Chloride 102 mmol/L (98-107); EST Glomerular Filtration Rate 66 mL/min (>60); Est Glom Filt Rate - Afr Amer 80 mL/min (>60); Globulin 3.5 g/dL (2.2-4.2); Glucose 121 mg/dL (74-106); Potassium 4.3 mmol/L (3.5-5.1); Protein, Total 7.3 g/dL (6.4-8.2); Sodium Level 138 mmol/L (136-145)
== END | disposition home or self-care (01) ==
LOC: MTLAB 16:35
PROVIDERS: PCP Internal Medicine; Visit Provider Internal Medicine
DX: E11.69 Type 2 diabetes mellitus with other specified complication (principal)
CPT/HCPCS: 36415; 80053; 85025

== ENCOUNTER → 2024-10-14 | Outpatient (CLI) | payer MEDICARE, OTHER, SELFPAY ==
[2018-08-15 08:02] VITALS: BMI 39.4
--- NOTE | 2024-10-14 12:47 | CT_ITS ---
HISTORY: templating for right TKA. TECHNIQUE: Helically acquired images were obtained of the right lower extremity without contrast. [facility] protocol. 2-D reformats were performed by the technologist. A radiation dose optimization technique was used for this scan. 1154 images. COMPARISON: XR 09/12/2024. FINDINGS: BONES: No acute osseous abnormality identified. JOINT SPACES: No dislocation. Mild degenerative osteophytes at the hip. Degenerative osteophytes and subchondral cysts of the knee with tricompartmental joint space narrowing and chondrocalcinosis. Trace joint effusion of the knee. SOFT TISSUES: Mild subcutaneous edema anterior to the. CT/Extremity Lower without Contra IMPRESSION: [facility] protocol CT of the right lower extremity for preoperative planning. Electronically Signed: Madelenie Kent MD at 9:32 EST ,
== END | disposition home or self-care (01) ==
LOC: CT 12:47
PROVIDERS: PCP Internal Medicine; Referring Provider Orthopaedic Surgery; Visit Provider Orthopaedic Surgery
DX: M17.0 Bilateral primary osteoarthritis of knee (principal)
CPT/HCPCS: 73700

== ENCOUNTER 2024-10-28 18:10 | Observation (INO) | payer MEDICARE, OTHER, SELFPAY ==
[2018-08-15 08:02] VITALS: BMI 39.4
--- NOTE | 2024-10-10 16:35 | PAT.ANE_ITS ---
Pre-Assessment Diagnosis/Proposed Procedure Planned Operative Procedure(s): ERAS, Right Total Knee Replacement Robotic Arm Assisted Anesthesia History Anesthesia History - restrictive preparation operator: Anesthesia History - restrictive preparation operator Hx Hospitalization No 10/10/24 10:25 Any Problems With Anesthesia No 10/10/24 10:25 Cholinesterase deficiency No 10/10/24 10:25 You/Your Family Experience No 10/10/24 10:25 fever (hyperthermia) with Relationship Recent Exposure to Contagious No 04/11/21 07:55 Disease Does patient have nerve No 10/10/24 10:25 stimulator Patient instructed to have device shut off --Does patient have Pacemaker or ICD? When Was Last Pacemaker Check QUESTION #4 FULL TEXT: You/Your Family Experience fever (hyperthermia) with Anesthesia Last Oral Intake Last Oral intake: Last Oral Intake NPO since Meds taken in AM with sips of water? Meds patient instructed to take am of surgery PONV PONV - restrictive preparation operator: PONV - restrictive preparation operator Female Yes 10/10/24 10:25 HX of Motion Sickness Yes 10/10/24 10:25 HX of N/V After Surgery No 10/10/24 10:25 Non-Smoker Yes 10/10/24 10:25 Duration of Surgery greater Yes 10/10/24 10:25 than 60 minutes Number of Risk Factors 4 10/10/24 10:25 PONV Score Severe Risk 10/10/24 10:25 Height & Weight Height & Weight: Anesthesia: Height & Weight Height 5 ft 8 in 09/12/24 10:38 Respiratory Assessment Respiratory Assessment - restrictive preparation operator: Respiratory Tract Infection Hx - restrictive preparation operator Hx Respiratory Tract Infection No 10/10/24 10:25 STOP Sleep Apnea STOP Sleep Apnea - restrictive preparation operator: STOP Sleep Apnea - restrictive preparation operator Hx Hypertension Yes: PER PT, CONTROLLED ON 10/10/24 10:25 MEDS Hx Sleep Apnea Yes 10/10/24 10:25 CPAP Yes: DOESN'T USE D/T UNABLE 10/10/24 10:25 TO TOLERATE BIPAP No 10/10/24 10:25 Do you snore loudly (louder than talking or can be heard Do you often feel tired/ fatigued/ sleepy during daytime? Has anyone observed you stop breathing during sleep? STOP Results Positive 10/10/24 10:25 QUESTION #5 FULL TEXT : Do you snore loudly (louder than talking or can be heard through closed doors)? Tobacco Use History Tobacco Use History - restrictive preparation operator: Tobacco Use History - restrictive preparation operator Tobacco Use Smoking Status Former smoker 10/10/24 10:25 Hx Tobacco Use No 10/10/24 10:25 Years Smoking Packs Smoked per Day Smoking Cessation Date was No - quit smoking greater 10/10/24 10:25 within the last 15 years than 15 years ago Hx Smoking Cessation Date 09/05/84 10/10/24 10:25 Hx Smoking Cessation Counseling Hematologic Medial History Hematologic Hx - restrictive preparation operator: Hematologic Medical Hx - manager documentation Hx of Blood Transfusion No 10/10/24 10:25 Hx of Transfusion in last 3 No 10/10/24 10:25 Months Date of Last Transfusion (if within last 3 months) Ever experience any problems No 10/10/24 10:25 with transfusion(s)? Specify any problems Hx of Preganancy in last 3 No 10/10/24 10:25 Months Nurse Filling Out Transfusion MGRIFFITH 10/10/24 10:25 & Questions: Date: 10/10/24 10/10/24 10:25 Time: 10:28 10/10/24 10:25 Patient unable to answer at this time (ie. confused, unrespo /Reproduction History /Reproductive History - restrictive preparation operator: /Reproductive Hx- restrictive preparation operator Hx Now Gestational Age (in weeks): EDC: Hx Hx Para [facility] History (Updated 10/10/24 @ 10:40 by Antonia Arvizu) History of chronic diarrhea Cancer History of steroid therapy Heartburn Sleep apnea Shortness of breath on exertion History of stress test History of irregular heartbeat History of Holter monitoring Health care maintenance Tinnitus Elevated liver enzymes Acute hepatitis Dermatitis Right sided abdominal pain Palpitations Laceration of right index finger w/o foreign body w/o damage to nail Use of aromatase inhibitors Obesity Hypothyroidism Type 2 diabetes mellitus Wears glasses Thyroid disease Arthritis High cholesterol Back pain Former smoker Neuropathy Hx of vaginal delivery Prerenal azotemia PORT REMOVED DJD (degenerative joint disease) Dyslipidemia Regional lymph node metastasis present Bilateral malignant neoplasm of breast in female HTN (hypertension) Home Medications ?Medication ?Instructions ?Recorded ?Last Taken ?Type multivitamin 1 cap PO QDAY 11/30/17 Unknown History loratadine 10 mg tablet 10 mg PO DAILY 08/16/21 Unknown History biotin 5,000 mcg-lutein 10 mg 1 tab PO DAILY 04/05/23 Unknown History tablet (Biotin Plus) cholecalciferol (vitamin D3) 125 125 mcg PO DAILY 04/05/23 Unknown History mcg (5,000 unit) tablet melatonin 3 mg tablet 3 mg PO HS PRN sleep 04/05/23 Unknown History Handicap Placard #1 ea 08/01/23 Unknown Rx triamcinolone acetonide 0.1 % 1 applic topical BID PRN 08/13/23 Unknown Rx topical cream Dermatitis #80 grams metoprolol succinate 50 mg See Rx Instructions .Route 11/05/23 Unknown Rx tablet,extended release 24 hr .COMPLEX #180 tabs simvastatin 20 mg tablet See Rx Instructions .Route 11/05/23 Unknown Rx .COMPLEX #90 tabs valsartan 40 mg tablet 40 mg PO DAILY #90 tabs 04/28/24 Unknown Rx tirzepatide 5 mg/0.5 mL 5 mg (0.5 mL) subcut QWEEK 3 06/13/24 Unknown Rx subcutaneous pen injector months #6.5 mL (Kristin) metformin 500 mg tablet,extended 500 mg PO BID #180 tabs 06/24/24 Unknown Rx release 24 hr anastrozole 1 mg tablet 1 mg PO DAILY #90 TABLETS 07/21/24 Unknown Rx levothyroxine 88 mcg tablet 88 mcg PO QDAY #90 tabs 07/21/24 Unknown Rx blood sugar diagnostic (FreeStyle #200 ea 08/18/24 Unknown Rx Lite Strips) loratadine 10 mg tablet (Claritin) 10 mg PO DAILY 10/10/24 Unknown History Allergy/AdvReac Type Severity Reaction Status Date / Time butalbital (From Fiorinal) AdvReac Severe Vomiting Verified 10/10/24 10:18 codeine AdvReac Severe Vomiting Verified 10/09/24 13:30 Penicillins AdvReac Severe rash Verified 10/10/24 10:18 Family History Father Diabetes Heart disease Hypertension Cancer prostate and lymph nodes Sister Breast cancer Thyroid disorder Surgical History (Updated 10/10/24 @ 10:25 by Antonia Arvizu) History of tooth extraction Hx of tubal ligation Hx of tonsillectomy port placement S/P bilateral mastectomy (~12/28/17) S/P colonoscopy S/P appendectomy S/P cholecystectomy S/P tonsillectomy S/P hysterectomy Social History household members: spouse and children housing: house Smoking Status: Former smoker quit date: 09/05/84 second hand exposure: No alcohol intake: never substance use type: does not use erika/jainism: [facility] [place] seatbelt use: always do you feel safe at home: Yes Audit: Pertinent Findings Pertinent Findings EKG Perinent findings: October 09, 2024. Sinus rhythm. Left atrial enlargement. Nonspecific T abnormality. No change from May 2024. June 13, 2024. Sinus rhythm. Nonspecific T wave abnormality. Additional pertinent findings: Holter monitor performed May 17, 2023. Normal sinus rhythm with a wide QRS noted. Recommendation Anesthesia Recommendation Anesthesia recommendation: OPTIMIZED for anesthesia
[2024-10-13 15:18] LABS: Absolute Lymphocyte Count 1.73 X10^3/uL (0.83-4.51); Basophil# 0.08 X10^3/uL; Basophil% 1.2 % (0-1); Eosinophil# 0.16 X10^3/uL; Eosinophils% 2.4 % (0-5); Hematocrit 44.5 % (37-47); Hemoglobin 14.6 g/dL (12.0-15.0); Lymphocyte # 1.73 X10^3/ul (0.83-4.51); Lymphocyte % 26.3 % (19-41); Mean Corp Hgb Conc 32.8 g/dL (32-36); Mean Corpuscular Hgb 32.1 pg (27.0-32.0); Mean Corpuscular Volume 97.8 fL (81-99); Mean Platelet Vol. 9.2 fl (6.2-12.0); Monocyte% 9.1 % (0-10); NRBC Flagged by Analyzer 0 % (0-5); Neutrophil % 60.7 % (47-70); Platelet Count 219 K/mm3 (150-450); RBC Distribution Width CV 13.2 % (11.6-14.6); RBC Distribution Width SD 46.8 fl (35.1-43.9); Red Blood Count 4.55 M/mm3 (4.2-5.4); White Blood Count 6.6 K/mm3 (4.4-11.0)
[2024-10-13 15:28] LABS: Magnesium 1.9 mg/dL (1.6-2.6)
[2024-10-13 15:33] LABS: Prothrombin Time (Protime)PT. 13.1 SECONDS (11.7-14.9)
[2024-10-13 15:34] LABS: Partial Thromboplast Time 25.2 Seconds (24.1-36.2)
[2024-10-13 17:30] LABS: Hemoglobin A1c 5.9 % (3.8-5.6)
[2024-10-15 07:06] LABS: Fructosamine 239 umol/L (0-285)
[2024-10-28] VITALS (18 sets, daily range): BP systolic 76–123; BP diastolic 50–77; PULSE 87–98; RESP 16–18; TEMP 36.1–36.8; O2SAT 95–99; BMI 32.5; BMI 32.6
[2024-10-28] MEDS: Magnesium 2 GM for ERAS IV (10:44)
[2024-10-28] MEDS: Acetaminophen 500 MG Tablet 1000 MG PO ×2 (10:47→20:46)
[2024-10-28] MEDS: 0.9% Normal Saline (1000mL) 1,000 ML 15 ML IV (10:47)
[2024-10-28] MEDS: Scopolamine 1mg/72hr Patch 1 PATCH TD (10:47)
[2024-10-28] MEDS: Gabapentin 600 MG Tablet PO (10:48)
[2024-10-28] MEDS: Celecoxib 200 MG Capsule 400 MG PO (10:48)
[2024-10-28 10:49] LABS: Bedside Glucose 122 mg/dL (74-106)
--- NOTE | 2024-10-28 11:27 | PCM.PRE.AN2 ---
ASA Classification* ASA Classification ASA Classification: 3 Assessment & Plan Anesthesia* Anesthesia Assessment Anesthesia Assessment: Discussed sedation and/or anesthesia options, risks, benefits, and alternatives with patient/parents/legal guardian/POA. Questions invited. The patient/parents/legal guardian/POA seems to understand and agrees to proceed with anesthesia plan. Reviewed the physical assessment, medical history, allergy history and patient home medications list prior to surgery/procedure/anesthetic and documented any changes. Performed airway and anesthesia risk assessments. Anesthesia Type Anesthesia Type: Spinal and Block (Patient is consented for adductor canal block.) History Source History Obtained from:: Patient and Chart Anesthesia Focused Assessment* Temperature: 98.2 F Pulse Rate: 90 Blood Pressure: 105/71 Respiratory Rate: 16 Pulse Ox: 98 Oxygen Delivery Method: Room Air Airway Assessment Mouth opens: >3 cm Mallampati Score: I Teeth Condition: Caps/Crowns (Patient has several crowns. They are all tight.) and Missing (Missing 1 upper right molar. The rest of the teeth are tight.) Neck Range of motion (ROM): Full ROM Focused Labs Anesthesia Preop lab: CBC WBC 6.6 K/mm3 (4.4-11.0) 10/13/24 11:50 RBC 4.55 M/mm3 (4.2-5.4) 10/13/24 11:50 Hgb 14.6 g/dL (12.0-15.0) 10/13/24 11:50 Hct 44.5 % (37-47) 10/13/24 11:50 Plt Count 219 K/mm3 (150-450) 10/13/24 11:50 CHEMISTRY Potassium 4.3 mmol/L (3.5-5.1) 09/24/24 16:41 Sodium 138 mmol/L (136-145) 09/24/24 16:41 Magnesium 1.9 mg/dL (1.6-2.6) 10/13/24 11:50 BUN 19 mg/dL (7-18) H 09/24/24 16:41 Creatinine 0.90 mg/dL (0.55-1.02) 09/24/24 16:41 Glucose 121 mg/dL (74-106) H 09/24/24 16:41 POC Glucose 122 mg/dL (74-106) H 10/28/24 10:30 TSH 2.090 uIU/mL (0.358-3.740) 10/13/24 11:50 COAG PT 13.1 SECONDS (11.7-14.9) 10/13/24 11:50 Pre-Assessment Diagnosis/Proposed Procedure Planned Operative Procedure(s): ERAS, Right Total Knee Replacement Robotic Arm Assisted Anesthesia History 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 When Was Last Pacemaker Check QUESTION #4 FULL TEXT: You/Your Family Experience fever (hyperthermia) with Anesthesia Last Oral Intake Last Oral intake: Last Oral Intake NPO since 08:45 10/28/24 10:14 Meds taken in AM with sips of Yes 10/28/24 10:14 water? Meds patient instructed to take am of surgery Any additional information?: Yes NPO since: 07:45 (Patient had her preop Ensure at 7:45 AM. Took her a.m. 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 Female Yes 10/10/24 10:25 HX of Motion Sickness Yes 10/10/24 10:25 HX of N/V After Surgery No 10/10/24 10:25 Non-Smoker Yes 10/10/24 10:25 Duration of Surgery greater Yes 10/10/24 10:25 than 60 minutes Number of Risk Factors 4 10/10/24 10:25 PONV Score Severe Risk 10/10/24 10:25 Height & Weight Height & Weight: Anesthesia: Height & Weight Height 5 ft 8 in 10/28/24 10:14 Weight: 97.2 kg 10/28/24 10:14 Body Mass Index (BMI) 32.5 10/28/24 10:14 Respiratory Assessment Respiratory Assessment - exceptional student education teacher: Respiratory Tract Infection Hx - exceptional student education teacher Hx Respiratory Tract Infection No 10/10/24 10:25 STOP Sleep Apnea STOP Sleep Apnea - exceptional student education teacher: STOP Sleep Apnea - exceptional student education teacher Hx Hypertension Yes: PER PT, CONTROLLED ON 10/10/24 10:25 MEDS Hx Sleep Apnea Yes 10/10/24 10:25 CPAP Yes: DOESN'T USE D/T UNABLE 10/10/24 10:25 TO TOLERATE BIPAP No 10/10/24 10:25 Do you snore loudly (louder than talking or can be heard Do you often feel tired/ fatigued/ sleepy during daytime? Has anyone observed you stop breathing during sleep? STOP Results Positive 10/10/24 10:25 QUESTION #5 FULL TEXT : Do you snore loudly (louder than talking or can be heard through closed doors)? 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 Specify any problems Hx of Preganancy in last 3 No 10/10/24 10:25 Months Nurse Filling Out Transfusion MGRIFFITH 10/10/24 10:25 & Questions: Date: 10/10/24 10/10/24 10:25 Time: 10:28 10/10/24 10:25 Patient unable to answer at this time (ie. 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: /Reproductive Hx- exceptional student education teacher Hx Now Gestational Age (in weeks): EDC: Hx Hx Para Hx Section SAB Active Medications Active Medications: Current Medications Generic Name Dose Route Start Last Admin Trade Name Freq PRN Reason Stop Dose Admin Acetaminophen 1,000 mg 10/28/24 11:45 10/28/24 10:47 Acetaminophen 500 Mg Tablet PO 10/28/24 11:46 1,000 mg X1 ONE Administration Celecoxib 400 mg 10/28/24 11:45 10/28/24 10:48 Celecoxib 200 Mg Capsule PO 10/28/24 11:46 400 mg X1 ONE Administration Dexamethasone Sodium Phosphate 10 mg 10/28/24 11:45 Dexamethasone 10 Mg/Ml Vial IV 10/28/24 11:46 X1 ONE Gabapentin 600 mg 10/28/24 11:45 10/28/24 10:48 Gabapentin 600 Mg Tablet PO 10/28/24 11:46 600 mg X1 ONE Administration Cefazolin Sodium 2 gm/ N/A 20 mls @ 400 mls/hr 10/28/24 11:45 IV 10/28/24 11:47 PREOP ONE Tranexamic Acid 1,000 mg/ 110 mls @ 660 mls/hr 10/28/24 11:45 Sodium Chloride IV 10/28/24 11:54 X1 ONE Tranexamic Acid 1,000 mg/ 110 mls @ 660 mls/hr 10/28/24 11:45 Sodium Chloride IV 10/28/24 11:54 X1 ONE Lactated Ringer's 1,000 mls @ 125 mls/hr 10/28/24 11:45 IV 10/28/24 19:44 .Q8H DAVIE Magnesium Sulfate 2 gm/ 104 mls @ 208 mls/hr 10/28/24 11:45 10/28/24 10:44 Dextrose IV 10/28/24 12:14 208 mls/hr X1 ONE Administration Sodium Chloride 1,000 mls @ 15 mls/hr 10/28/24 09:45 10/28/24 10:47 IV 11/02/24 23:04 15 mls/hr .Q48H DAVIE Administration Protocol Insulin Human Lispro 1 - 6 unit 10/28/24 11:45 Insulin Lispro 100 Unit/Ml Insuln.Pen SC Q4H PRN PRN BG>/= 180, SEE PROTOCOL Protocol Scopolamine HBr 1 patch 10/28/24 11:45 10/28/24 10:47 Scopolamine 1mg/72hr Patch TD 10/28/24 11:46 1 patch X1 ONE Administration [facility] Medical History History of chronic diarrhea Cancer History of steroid therapy Heartburn Sleep apnea Shortness of breath on exertion History of stress test History of irregular heartbeat History of Holter monitoring Health care maintenance Tinnitus Elevated liver enzymes Acute hepatitis Dermatitis Right sided abdominal pain Palpitations Laceration of right index finger w/o foreign body w/o damage to nail Use of aromatase inhibitors Obesity Hypothyroidism Type 2 diabetes mellitus Wears glasses Thyroid disease Arthritis High cholesterol Back pain Former smoker Neuropathy Hx of vaginal delivery Prerenal azotemia PORT REMOVED DJD (degenerative joint disease) Dyslipidemia Regional lymph node metastasis present Bilateral malignant neoplasm of breast in female HTN (hypertension) Home Medications ?Medication ?Instructions ?Recorded ?Last Taken ?Type multivitamin 1 cap PO QDAY 11/30/17 Unknown History loratadine 10 mg tablet 10 mg PO DAILY 06/06/21 Unknown History biotin 5,000 mcg-lutein 10 mg 1 tab PO DAILY 04/05/23 Unknown History tablet (Biotin Plus) cholecalciferol (vitamin D3) 125 125 mcg PO DAILY 04/05/23 Unknown History mcg (5,000 unit) tablet melatonin 3 mg tablet 3 mg PO HS PRN sleep 04/05/23 Unknown History Handicap Placard #1 ea 08/01/23 Unknown Rx triamcinolone acetonide 0.1 % 1 applic topical BID PRN 08/13/23 Unknown Rx topical cream Dermatitis #80 grams metoprolol succinate 50 mg See Rx Instructions .Route 11/05/23 10/28/24 Rx tablet,extended release 24 hr .COMPLEX #180 tabs simvastatin 20 mg tablet See Rx Instructions .Route 11/05/23 Unknown Rx .COMPLEX #90 tabs valsartan 40 mg tablet 40 mg PO DAILY #90 tabs 04/28/24 10/28/24 Rx tirzepatide 5 mg/0.5 mL 5 mg (0.5 mL) subcut QWEEK 3 06/13/24 10/14/24 Rx subcutaneous pen injector months #6.5 mL (Mounjaro) metformin 500 mg tablet,extended 500 mg PO BID #180 tabs 06/24/24 Unknown Rx release 24 hr anastrozole 1 mg tablet 1 mg PO DAILY #90 TABLETS 07/21/24 Unknown Rx levothyroxine 88 mcg tablet 88 mcg PO QDAY #90 tabs 07/21/24 10/28/24 Rx blood sugar diagnostic (FreeStyle #200 ea 08/18/24 Unknown Rx Lite Strips) loratadine 10 mg tablet (Claritin) 10 mg PO DAILY 10/10/24 Unknown History Allergy/AdvReac Type Severity Reaction Status Date / Time butalbital (From Fiorinal) AdvReac Severe Vomiting Verified 10/28/24 10:08 codeine AdvReac Severe Vomiting Verified 10/28/24 10:08 Penicillins AdvReac Severe rash Verified 10/28/24 10:08 Family History Father Diabetes Heart disease Hypertension Cancer prostate and lymph nodes Sister Breast cancer Thyroid disorder Surgical History History of tooth extraction Hx of tubal ligation Hx of tonsillectomy port placement S/P bilateral mastectomy (~12/28/17) S/P colonoscopy S/P appendectomy S/P cholecystectomy S/P tonsillectomy S/P hysterectomy Social History household members: spouse and children housing: house Smoking Status: Former smoker quit date: 09/05/84 second hand exposure: No alcohol intake: never substance use type: does not use erika/jehovah's witness: [employer] seatbelt use: always do you feel safe at home: Yes Review of Systems (Anesthesia) ROS Narrative System reviewed and no additional complaints, except as documented.
--- NOTE | 2024-10-28 11:45 | KNEE_PTH ---
PATIENT: KODI POWELL LOC: MS3 U#:[id number] AGE/SX: 68/F ROOM: [facility] [place] RE10/28/[address]: Dr. Florencio Gates DO : 1955 BED: 1 DIS: 10/29/2024 SPEC #: [id number] RECD: 10/28/24 17:17 STATUS: MAIKEL REQ #: [id number] MARCY: 10/28/24 11:[address]: Florencio Gates DEPT: SURGICAL PATHOLOGY RECD BY: Isael Nava ENTERED: 10/29/24 09:00 SP TYPE: TOTAL KNEE OTHR DR: MD Dr. Parul Carrasquillo MD Tissues: Knee, NOS Procedures: Decalcification bone/plaque Surgery Specimen Level IV HEADER OPERATION: Right total knee replacement robotic arm assist PRE-OP DIAGNOSIS: Right knee osteoarthritis TISSUE SUBMITTED: Debrided bone and tissue - right knee MICROSCOPIC DIAGNOSIS Bone and soft tissue, right knee, total knee replacement/resection: Pieces of bone with degenerative osteoarthritic changes. SJ: 11/03/2024 MICROSCOPIC DESCRIPTION Slides are reviewed. GROSS DESCRIPTION Received is one container designated bone and soft tissue right knee. The specimen consists of multiple fragments of fabian-yellow bone measuring in aggregate 11.0 x 10.0 x 3.5 cm. No soft tissue is identified. A number of bony fragments contain articular surfaces consistent with tibial plateau and femoral condyle and displaying prominent osteophyte formation, eburnation and bone erosion. Billing Coordinator sections are submitted in one cassette after decalcification. / ROSANNA. 10/29/2024 TC:5 CPT: 93630, 37234
--- NOTE | 2024-10-28 12:02 | HP.PCM_ITS ---
History and Physical Date of Admission: 10/28/24 [facility] [address] [place] [address] OFFICE VISIT Date of Service: 09/12/24 MR#: [id number] Acct: [id number] Name: KODI POWELL Rep #: [id number] : 1955 Provider: Dr. Florencio Gates DO Age/Sex: 68/F Location: [facility] [place] Status: Signed with Addenda ADDENDUM by Diana Yuan on 09/12/24 at 1311 Office Procedure Documentation entered by Diana Yuan 09/12/24 13:11: Ortho Injections Injections Yes Knee Left Is this a patient provided medication?: No Details: Obtained consent for injection. Under sterile conditions, injected the patients left knee with 1.5cc bupivacaine 1.5cc lidocaine 1cc depo medrol. The patient tolerated the injection well without any noted complication. Patient should call our office if redness develops, pain worsens or if they have any concerns. Office Meds Depo-Medrol 40 mg/mL suspension for injection Performing Provider: Florencio Gates DO Performing Location: [facility] Administered by: Diana Yuan on 09/12/24 13:10 Dose Route Admin Location Dispensed Lot Number Expiration Date ND Strip Stamp Straightener 40 mg intra-articular left knee 1 mL [id number] 05/22/26 4704-4647-78 [facility] Date cc: ~* Signed Intake Vital Signs 07/29/2409:32 09/11/2415:40 09/12/2410:38 Height 5 ft 6 in 5 ft 6 in 5 ft 8 in Weight: 215 lb 2 oz 218 lb 219 lb BMI 34.7 35.2 33.3 BP 115/78 120/82 H Blood Pressure Location Rt brachial Lt brachial Position Sitting Sitting Respiration 16 16 Pulse 80 86 Pulse Source Monitor Monitor Temp 97.0 F L 97.0 F L Temp Source Temporal Pulse Oximetry (%) 98 96 Oxygen Delivery Method room air room air Intake Visit Reasons: BILATERAL KNEES Chief Complaint: BL knees Is patient in pain?: Yes (BL knees ) Pain scale (1-10): 8 Allergies aspirin (From Fiorinal) Adverse Reaction (Severe, Verified 09/12/24 10:39) Vomitingbutalbital (From Fiorinal) Adverse Reaction (Severe, Verified 09/12/24 10:39) Vomitingcaffeine (From Fiorinal) Adverse Reaction (Severe, Verified 09/12/24 10:39) Vomitingcodeine Adverse Reaction (Severe, Verified 09/12/24 10:39) VomitingPenicillins Adverse Reaction (Severe, Verified 09/12/24 10:39) rash Medications ?Medication ?Instructions ?Recorded ?Confirmed ?Type multivitamin 1 cap PO QDAY 11/30/17 09/12/24 History loratadine 10 mg tablet 10 mg PO DAILY 06/06/21 09/12/24 History biotin 5,000 mcg-lutein 10 mg 1 tab PO DAILY 04/05/23 09/12/24 History tablet (Biotin Plus) cholecalciferol (vitamin D3) 125 125 mcg PO DAILY 04/05/23 09/12/24 History mcg (5,000 unit) tablet melatonin 3 mg tablet 3 mg PO HS PRN 04/05/23 09/12/24 History Handicap Placard #1 ea 08/01/23 09/11/24 Rx triamcinolone acetonide 0.1 % 1 applic topical BID PRN 08/13/23 09/12/24 Rx topical cream Dermatitis #80 grams metoprolol succinate 50 mg See Rx Instructions .Route 11/05/23 09/12/24 Rx tablet,extended release 24 hr .COMPLEX #180 tabs simvastatin 20 mg tablet See Rx Instructions .Route 11/05/23 09/12/24 Rx .COMPLEX #90 tabs valsartan 40 mg tablet 40 mg PO DAILY #90 tabs 04/28/24 09/12/24 Rx tirzepatide 5 mg/0.5 mL 5 mg (0.5 mL) subcut QWEEK 3 06/13/24 09/12/24 Rx subcutaneous pen injector months #6.5 mL (Mounbelinda) metformin 500 mg tablet,extended 500 mg PO BID #180 tabs 06/24/24 09/12/24 Rx release 24 hr anastrozole 1 mg tablet 1 mg PO DAILY #90 TABLETS 07/21/24 09/12/24 Rx levothyroxine 88 mcg tablet 88 mcg PO QDAY #90 tabs 07/21/24 09/12/24 Rx blood sugar diagnostic (FreeStyle #200 ea 08/18/24 09/11/24 Rx Lite Strips) Have you fallen in the past year?: No PFSH Medical History Health care maintenance Tinnitus Elevated liver enzymes Acute hepatitis Dermatitis Right sided abdominal pain Palpitations Laceration of right index finger w/o foreign body w/o damage to nail Use of aromatase inhibitors Obesity Hypothyroidism Type 2 diabetes mellitus Wears glasses Thyroid disease Arthritis High cholesterol Back pain Former smoker Neuropathy Hx of vaginal delivery Prerenal azotemia PORT REMOVED DJD (degenerative joint disease) Dyslipidemia Regional lymph node metastasis present Bilateral malignant neoplasm of breast in female HTN (hypertension) Surgical History Hx of tubal ligation Hx of tonsillectomy port placement S/P bilateral mastectomy (~12/28/17) S/P colonoscopy S/P appendectomy S/P cholecystectomy S/P tonsillectomy S/P hysterectomy Family History Father Diabetes Heart disease Hypertension Cancer prostate and lymph nodesSister Breast cancer Thyroid disorder Social History household members: spouse and children housing: house Smoking Status: Former smoker quit date: 09/05/84 second hand exposure: No alcohol intake: never substance use type: does not use erika/zoroastrian: [employer] seatbelt use: always do you feel safe at home: Yes HPI BILATERAL KNEES Details: This documentation accurately reflects the service provided and the decisions made by me, Dr. Florencio Gates, DO 09/12/24 0939. Part of today?s visit was documented by Demi PERALTA, acting as scribe. KODI POWELL is a 68 year old F 09/12/2022 : here today for BL knee pain. Right worse than left she has known knee arthrosis for many years. She reports the Euflexxa injections were helpful for 6 weeks. She reports pain in both knees but states the right side is worse. She reports popping and clicking of her right knee. She has had her right knee give out while she is walking. She would like to discuss options for treatment today including surgery as her knees are affecting her quality of life partic ularly the right. She states that the Euflexxa injections gave her relief for 3 months and the steroid gave her relief for 1 month. 06/11/2024: 68 year old F known to me with bilateral knee arthritis worse on the right ;patient received Euflexxa right knee 02/22/2024 and bilateral steroid knee injections 01/30/2024. Patient did have a series of Euflexxa injection and her last one was 02/22/24. She did get a couple of months of relief from the Euflexxa injection but the knee is flared back up again. As far as the last steroid injection that also gave her a few months of relief. She states the worst of her pain is when she stands up from sitting and goes to take her first step and get shooting pain into her posterior calf and thigh. plan Bilateral knee steroid injections were performed today upon her request. She has had Euflexxa injection in the right knee in the past. Her right knee is radiographically worse for arthrosis, once again we discussed conservative and surgical options. She can continue with the injections if she likes. Follow-up as needed Ortho Exam General General: Yes no acute distress Neurologic: Yes alert and Yes oriented x3 Psychologic: Yes reasonable and appropriate Right Knee Skin/Wound: No erythema, No ecchymosis and No swelling Knee ROM: Yes ROM-Extension -20 to 0 (-10) and Yes ROM-Flexion 0-140 (100) Examination: Yes Med jt line tenderness, Yes Lat jt line tenderness, Yes Pain with flexion and Yes Pain with extention Stability: NML: Anterior Drawer, NML: Posterior Drawer, NML: Valgus 0, NML: Varus 0 and NML: Varus 30 and 1+: Valgus 30 Patella Translation: 1 Patella Grind: Yes KNEE: small joint effusion valgus deformity with 2mm lateral gapping with varus stress negative drawer Left Knee Skin/Wound: No ecchymosis, No erythema and No swelling Knee ROM: Yes ROM-Extension -20 to 0 (-2) and Yes ROM-Flexion 0-140 (108) Examination: Yes med jt line tenderness, Yes Lat jt line tenderness, Yes Crepitus and No Dannielle's Test Stability: NML: Anterior Drawer, NML: Posterior Drawer, NML: Valgus 0, NML: Valgus 30, NML: Varus 0 and NML: Varus 30 Patella Translation: 1 Patella Grind: Yes KNEE: spider hemangiomas fixed varus varicose veins Head: Normocephalic Atraumatic Chest: symmetrical rise, non-labored breathing, no audible wheeze Abdomen: no guarding, non-rigid Supplemental Info 09/12/2024 x-ray left knee: There is moderate patellofemoral arthritis with spurring of both patella and the trochlea, advanced medial compartment arthrosis [id number] there is moderate spurring of the medial and lateral compartments 09/12/2024 x-ray right knee: There is moderate spurring of the patellofemoral compartment advanced lateral compartment narrowing [id number] 04/13/2023 x-ray left knee: There is medial joint space narrowing subchondral sclerosis and spurring 04/09/2023 x-ray right knee: Advanced lateral compartment arthrosis worse on flexion view right relatively unchanged from previous x-rays in 2020 Coding Level of Care Code Off vis,est,level 4 Diagnoses Primary osteoarthritis of knees, bilateral M17.0 Assessment and Plan Assessment and Plan (1) Primary osteoarthritis of knees, bilateral: Status: Acute Orders: Orders Knee 4 or More Views Today M25.562 - Pain in left knee Knee 4 or More Views Today M25.561 - Pain in right knee Plan Patient is here today for continued bilateral knee pain. Right worse than left. I reviewed xrays today with patient and advised her that her right knee is bone on bone over her lateral and medial compartments. Her treatment options are do nothing, steroid injection, viscosupplementation injections, anti- inflammatories, or TKA. Patient is a diabetic and had a recent A1C yesterday of 6. She does also have a history of breast cancer and has been in remission for 6 years. She would like to proceed with a right total knee arthroplasty. I advised patient that we will need some medical clearances and will request to hold her anastrozole 2weeks before surgery and 4 weeks after to decrease risk of blood clot. I did go over the Iovera procedure with patient and she would like to proceed with it if her insurance covers it. She would benefit from prehab physical therapy to increase her range of motion and increase the chances of postoperative range of motion. She will need CT scan for MAKOplasty. Risks, benefits and alternatives of surgery reviewed including but not limited to bleeding, infection, nerve, artery and/or tissue damage, fracture, VTE, mechanical feel of the knee, continued pain, stiffness and expected post- operative course.?Patient wishes to proceed with a total knee replacement of the right knee and a steroid injection in the left knee and would like us to submit to her insurance for the Euflexxa injections in the left knee as well. Tentative surgery date October 28, 2024 same-day surgery, hold all NSAIDs 7 days before surgery Follow up for iovera and 2 weeks postop or sooner if pain, swelling, numbness or associated symptoms, or concerns develop. All questions answered. Patient in agreement of plan. Clinical Quality Measures Falls Risk Screening/Assistive Devices Have you fallen in the past year?: No 09/12/24 1217 <Electronically signed by Florencio Gates DO> Date Florencio Gates DO I have examined the patient and the H&P has been reviewed. There are no clinical changes since date of exam.
[2024-10-28] MEDS: Cefazolin 2 GM in Syringe 10 ML IV (12:35)
[2024-10-28] MEDS: TXA 1000mg in NS100 100ml (IVPB at Incision) 660 MG IV (12:40)
[2024-10-28] MEDS: dexAMETHasone 10 MG/ML Vial IV (12:44)
[2024-10-28] MEDS: TXA 1000mg in NS100 100ml (IVPB at Closure) 660 MG IV (13:07)
[2024-10-28] MEDS: Bupivacaine 0.5% PF 10 ML VIAL (13:37)
[2024-10-28] MEDS: 0.9% Normal Saline (Pres. free 10 ML Vial (13:37)
[2024-10-28] MEDS: dexAMETHasone 4 MG/ML Vial (13:37)
[2024-10-28] MEDS: Epinephrine (1 mg/ml) 1 MG/ML VIAL (13:37)
--- NOTE | 2024-10-28 14:34 | PCM.OPRPT ---
Operative Report (Standard) Operative Information Date of Procedure: 10/28/24 Pre-Operative Diagnosis: Right knee DJD Post-Operative Diagnosis: Same Surgery/Procedure Performed: Right total knee arthroplasty administrative coordinator: Yes Regroover: Tashi Yanez Tasks completed by assistant teaching professor: Opening & closing Type of Anesthesia: Spinal RN Documented Start/Stop Times: Operation Date: 10/28/24 11:45 Case Time Into Pre-Op 10/28/24 09:44 Anesthesia Start 10/28/24 12:31 Into Room 10/28/24 12:31 Procedure Start 10/28/24 12:54 Procedure Start Time: 12:54 Procedure Stop Time: 14:34 Select all DRAINS/GRAFTS/IMPLANTS that apply: Prosthetic device Prosthetic device details: Dolomite triathlon Estimated Blood Loss: 175 Specimen collected: Yes Description of specimen(s) removed: bone Description of surgery: Preoperative diagnosis: Right knee DJD Postoperative diagnosis: Same Procedure: Right total knee arthroplasty CT guided Robotic Assisted Implant: Dolomite triathlon press fit, femoral component size3, tibial baseplate size 3, asymmetric patella size 32, polyethylene X3 size 9 CS Anesthesia: Spinal with adductor canal block Tourniquet time: 12 minutes at 300 mmHg Complications: None Condition: Stable to PACU Estimated blood loss: 175 cc Director Of Managed Services Tashi Yanez. My physician legal support assistant was a vital part of this case. He was important in appropriate retraction during the case, and protection of soft tissues during procedure. His intimate knowledge of the case and my steps aided in safe and expedient completion of the procedure as well as appropriate position of the extremity during the case. He was also vital in assisting with closure under my direct supervision. Indication for procedure: This is a 68-year-old female with long standing degenerative joint disease of the knee who has failed conservative treatment and wished to proceed with elective total knee arthroplasty. Risk benefits and alternatives were reviewed including; risk of bleeding, infection, nerve artery and tissue damage, continued pain, postoperative stiffness, venous thromboembolism, need for postoperative rehabilitation, mechanical feel to the knee, and expected postoperative course. The pre- operative CT and templating was performed with component sizing. Procedure: The patient was met in the preoperative holding area. The operative extremity was identified by both patient and physician and was marked. Patient was met by anesthesia. An adductor canal block was placed by anesthesia postoperatively the patient was brought back to the operating room on a wheeled cart and transferred to the operating table in the supine position. Anesthesia was started. A well-padded tourniquet was placed on the operative extremity. The patient was prepped and draped in the usual sterile fashion. A timeout was called to ensure the proper patient procedure and extremity were being contemplated. An esmarch was used to exsanguinate the extremity. The tourniquet was inflated. A 10 blade scalpel was used to make a midline incision down through the skin and subcutaneous tissue. Skin retractors placed. Bovie and Aquamantis were used to perform meticulous hemostasis. full-thickness flaps were elevated medial and lateral along the joint capsule. A deep blade scalpel was used to perform a medial parapatellar arthrotomy. The knee was brought to full extension. A bovie was used to release the soft tissues off the most proximal aspect of the medial tibial plateau, a three-quarter inch curved osteotome was also used in this process. The infrapatellar fat pad was excised. The suprapatellar fat pad was excised partially anteriorolateraly and portion the anterioromedial pad was elevated from the femur. At this point our intra-articular femoral array was placed at a 45 degree angle proximal and posterior to the medial epicondyle. femoral checkpoint was placed at this time. Our tibial array was placed partially intra incisional 1 stab incision was made for the inferior pin with a 15 blade scaple, and pins were placed and attached to the tibial array , tibial checkpoint was placed in the proximal tibial metaphysis. Tourniquet was let down. At this point registration richards were taken throughout the knee . Once the knee was registered we then tensioned the medial and lateral ligaments in extension and 90 degrees of flexion. We then used these numbers to adjust our components within parameters to balance the knee in both flexion and extension once this was done on our monitor we then proceeded with using the robotic arm to make our tibial plateau cut, anterior and posterior chamfer and distal femur cuts. we removed the cut fragments with the use of a bovie and Meri, we did use a lamina social sciences department chair to insure we visualized and removed all posterior osteophytes and at this time also used the Aquamantis on the posterior joint capsule. we then trialed and achieved the desired plan with a well-balanced knee. we used the green probe to yesi the corresponding tibial rotation based on our CT template. Lug holes were drilled in the femur the tibia preparation was completed with the appropriate sized base plate pinned based on previous rotation yesi. An appropriate sized fin punch was used on the tibia and 4 corner drill was used for the press fit component and the patella was prepared by first using a caliper to ensure sufficient bone stock and a patellar reamer to remove the desired amount of bone. lug holes drilled for an asymmetric poly. We then brought the knee through range of motion with excellent patellar tracking. We thoroughly irrigated the knee. Trial components were removed a posterior capsular injection was preformed with our standard cocktail. In addition the aqua Mantis was also used to aid in hemostasis. Betadine rinse was allowed to sit and washed out completely. Components were press-fit into place. Aricept rinse was then used followed by several more liters of irrigation after it was allowed to sit. The joint capsule was closed with #1 Ethibond [id number] in the upper part of the arthrotomy and #1 Vicryl in the lower part of the arthrotomy. , Followed by 2-0 Vicryl in the subcutaneous tissues with yordan in the skin. Arrays and checkpoints were removed prior to closure all counts were correct stab incisions were closed with a staple standard dressing in the form of Mepilex AG for the main incision and a small Mepilex over the pin holes. Thigh-high SAL hose applied over top of dressing. Patient tolerated the procedure well and was directed to PACU in stable condition . There were no intraoperative complications. Surgical Findings: djd Complications Complications: No
--- NOTE | 2024-10-28 14:41 | EX.PCM.DISCH ---
Discharge Instructions Diet Discharge Diet: No restrictions (Minimize sweets and carbohydrates. Hyperglycemia in the perioperative period increases risk of infection. ) Activity Weight Bearing Status: Weight bearing as tolerated Dressing / Incision Call your doctor if you observe: Shortness of breath and Chest pain Additional Dressing/Incision Instructions:: Ice and elevate lower extremities 2 weeks while not ambulating. Ambulation is encouraged. Weight bearing as tolerated. Use assistive devise for stability. Encourage FULL knee extension and flexion 1 time EVERY time you get up and down and MULTIPLE times per day. No showering until 72 hours after surgery. May begin showering postop day #3. Remove the dressing prior to shower and gently wash with warm water and antibacterial soap then pat dry and place abdominal pad (or plain gauze) and SAL hose over top. This is to be done daily. Do not submerge for 3 weeks. If not showering daily after the initial 72 hours then you must clean incision and change dressing daily after the dressing comes off, must come off by 7 days postop. Do not allow animals near the incision area. Keep clean. Follow anti-coagulation recommendations as prescribed. Do not take any NSAIDs while on blood thinner. Do not take any additional narcotic pain medication other than what was prescribed on your surgery day without discussing with physician. Narcotic medication can be addictive. Do not drink alcohol while taking narcotics. Supplement narcotic prescription with acetaminophen 1000 mg 4 times a day. Start physical therapy. If you are not currently scheduled for physical therapy or you are unsure of appointment time please call office [facility] to arrange. Call Dr. Gates with any concerns. Follow Up Care Please Follow Up With: Florencio Gates DO When: 2 weeks Test Results: Test results from this visit will be discussed in further detail at your follow-up appointment, if applicable. Discharge Plan Admission Primary Reason for Your Visit: Right total knee arthroplasty Attending Provider: Florencio Gates Primary Care Provider: Qi Delarosa Instructions Print Language: Cameroonian Discharge Orders/Prescriptions Prescriptions: New acetaminophen 500 mg tablet 1,000 mg PO Q6H Qty: 100 2RF cephalexin 500 mg capsule 1,000 mg PO Q8H Qty: 4 0RF Rx Instructions: Take 2 tabs before you go to bed and 2 tabs after 5 AM morning after surgery when you wake up oxycodone 5 mg tablet 5 - 10 mg PO Q4H PRN (Reason: pain) 7 Days Qty: 60 0RF Eliquis 2.5 mg tablet 2.5 mg PO BID Qty: 30 0RF Rx Instructions: Begin morning after surgery. Continued multivitamin capsule 1 cap PO QDAY melatonin 3 mg tablet 3 mg PO HS PRN (Reason: sleep) cholecalciferol (vitamin D3) 125 mcg (5,000 unit) tablet 125 mcg PO DAILY Biotin Plus 5,000 mcg- 10 mg tablet 1 tab PO DAILY triamcinolone acetonide 0.1 % cream 1 applic topical BID PRN (Reason: Dermatitis) Qty: 80 2RF Mounjaro 5 mg/0.5 mL pen injector 5 mg subcut QWEEK 90 Days Qty: 6.5 1RF loratadine 10 mg tablet 10 mg PO DAILY loratadine [Claritin] 10 mg tablet 10 mg PO DAILY (DME) Handicap Placard See Rx Instructions .ROUTE .MEDSUPPLY Qty: 1 0RF Rx Instructions: As directed, length of time 3 years simvastatin 20 mg tablet See Rx Instructions .ROUTE .COMPLEX Qty: 90 3RF Dose Instruction: TAKE 1 TABLET AT BEDTIME Rx Instructions: TAKE 1 TABLET AT BEDTIME metoprolol succinate 50 mg tablet extended release 24 hr See Rx Instructions .ROUTE .COMPLEX Qty: 180 3RF Dose Instruction: TAKE 1 TABLET TWICE A DAY Rx Instructions: TAKE 1 TABLET TWICE A DAY valsartan 40 mg tablet 40 mg PO DAILY Qty: 90 3RF metformin 500 mg tablet extended release 24 hr 500 mg PO BID Qty: 180 3RF anastrozole 1 mg tablet 1 mg PO DAILY Qty: 90 3RF Patient Comments: LAST DOSE BEFORE SURGERY WILL BE 10/14/24 levothyroxine 88 mcg tablet 88 mcg PO QDAY Qty: 90 3RF (DME) FreeStyle Lite Strips Strip See Rx Instructions .ROUTE .MEDSUPPLY Qty: 200 3RF Rx Instructions: check blood glucose 2x daily for type 2 DM Referrals / Follow Up: Qi Delarosa MD [Primary Care Provider] - Disposition Disposition (needs filled in before D/C Order can be placed): Home, Self Care
--- NOTE | 2024-10-28 14:47 | PCM.POST.ANE ---
Anesthesia: Postop Eval I Current Vital Signs Temperature: 97.5 F Pulse Rate: 95 Blood Pressure: 104/50 Respiratory Rate: 16 Pulse Ox: 97 Oxygen Delivery Method: Nasal Cannula (Per ERAS protocol) Oxygen Flow Rate (L/min): 4 Assessment Airway patent: Yes Spontaneous unlabored respirations: Yes Mental status: Awake and Calm nausea: No Vomiting: No Anesthesia Complication: No Fluid Hydration Crystalloid volume administer (ml): 1,600 Total IV fluid infused: 1,600 Progress Note Anesthesia document: Postop Eval 1 completed: Yes
[2024-10-28] MEDS: Ketorolac 30 MG/ML Syringe 15 MG IV (15:18)
[2024-10-28] MEDS: 0.9% Normal Saline (1000mL) 1,000 ML 125 ML IV ×2 (15:19→22:26)
--- NOTE | 2024-10-28 15:20 | RAD_ITS ---
EXAM: XR RIGHT KNEE, 1 OR 2 VIEWS CLINICAL INDICATION: post op -- in PACU TECHNIQUE: Frontal and/or lateral views of the right knee. COMPARISON: 09/12/24 FINDINGS: Brand-new right total knee arthroplasty with expected soft tissue air and intra-articular air. Expected soft tissue edema. No unexpected postsurgical findings. RAD/Knee 1 or 2 Views IMPRESSION: No unexpected postsurgical findings. Electronically Signed: Chang Bonilla MD at 16:39 EST ,
--- NOTE | 2024-10-28 16:11 | POSTOPAN2_ITS ---
Anesthesia Postop Eval I Sum Postop Eval Completion status Anesthesia document: Postop Eval 1 completed: Yes Anesthesia Postop Eval I Summary Anesthesia Postop Eval I Summary: Anesthesia Postop Eval I: Assessment Summary Airway patent Yes 10/28/24 14:48 CUSTOMER LOGISTICS MANAGER.[email or web address] Spontaneous unlabored Yes 10/28/24 14:48 CUSTOMER LOGISTICS MANAGER.[email or web address] respirations Mental status Awake,Calm 10/28/24 14:48 CUSTOMER LOGISTICS MANAGER.[email or web address] nausea No 10/28/24 14:48 CUSTOMER LOGISTICS MANAGER.[email or web address] Vomiting No 10/28/24 14:48 CUSTOMER LOGISTICS MANAGER.[email or web address] Anesthesia Postop Eval I: Fluid Summary Crystalloid volume administer 1,600 10/28/24 14:48 CUSTOMER LOGISTICS MANAGER.GDOTT (ml) Colloids volume administered ( ml) Blood Product volume administered (ml) Total IV fluid infused 1,600 10/28/24 14:48 CUSTOMER LOGISTICS MANAGER.GDOTT Anesthesia Postop Eval I: Summary Notes Anesthesia Complication No 10/28/24 14:48 CUSTOMER LOGISTICS MANAGER.GDOTT Anesthesia Complication Comment: Post-operative progress note Anesthesia: Postop Eval II Evaluation Mental status: Awake and Calm Pain Level: 1 nausea: No Vomiting: No Complications Anesthesia Complication: No
--- NOTE | 2024-10-28 16:11 | PCM.POSTANE2 ---
Anesthesia Postop Eval I Sum Postop Eval Completion status Anesthesia document: Postop Eval 1 completed: Yes Anesthesia Postop Eval I Summary Anesthesia Postop Eval I Summary: Anesthesia Postop Eval I: Assessment Summary Airway patent Yes 10/28/24 14:48 CERTIFIED MEDICAL ASSISTANT.[email or web address] Spontaneous unlabored Yes 10/28/24 14:48 CERTIFIED MEDICAL ASSISTANT.[email or web address] respirations Mental status Awake,Calm 10/28/24 14:48 CERTIFIED MEDICAL ASSISTANT.GDOTT nausea No 10/28/24 14:48 CERTIFIED MEDICAL ASSISTANT.GDOTT Vomiting No 10/28/24 14:48 CERTIFIED MEDICAL ASSISTANT.GDOTT Anesthesia Postop Eval I: Fluid Summary Crystalloid volume administer 1,600 10/28/24 14:48 CERTIFIED MEDICAL ASSISTANT.GDOTT (ml) Colloids volume administered ( ml) Blood Product volume administered (ml) Total IV fluid infused 1,600 10/28/24 14:48 CERTIFIED MEDICAL ASSISTANT.GDOTT Anesthesia Postop Eval I: Summary Notes Anesthesia Complication No 10/28/24 14:48 CERTIFIED MEDICAL ASSISTANT.GDOTT Anesthesia Complication Comment: Post-operative progress note Anesthesia: Postop Eval II Evaluation Mental status: Awake and Calm Pain Level: 1 nausea: No Vomiting: No Complications Anesthesia Complication: No
[2024-10-28] MEDS: Atorvastatin Calcium 10 MG Tablet PO (20:48)
[2024-10-28] MEDS: Metoprolol(XL)Succ 50 MG Tablet PO (20:48)
--- NOTE | 2024-10-28 22:57 | PCM.CONS.GEN ---
Assessment & Plan Assessment/Plan (1) Right knee pain: (2) Postoperative hypotension: PLAN: Plan Patient is a 68-year-old female who presented [facility] on 10/28/2024 for planned right knee replacement. Medicine consulted postoperatively for medical management. 1. Right knee degenerative joint disease ? Orthopedic surgery primary. S/p right total knee arthroplasty with Dr. Gates on 10/28. Patient tolerated procedure well, no intraoperative complications. Did have some postoperative hypotension limiting her ability to work with therapy as noted below. PT/OT/case management following. Likely planning for home with home health care versus outpatient therapy on discharge. Pain management and DVT prophylaxis per orthopedics. 2. Symptomatic postoperative hypotension, improving ? Patient hypotensive to the 80s over 60s postoperatively and had dizziness/lightheadedness with standing so did not work with therapy after her procedure. Blood pressures improved with IV fluid resuscitation. Follow-up a.m. labs. Will hold home ARB for today. Chronic medical conditions: ? Class I obesity: BMI 32 on admit. Complicates hospital course, care and prognosis. ? KASSIE: Continue home CPAP at night. ? Type 2 diabetes mellitus: A1c 5.9% in September. Will hold home metformin and tirzepatide while inpatient. Given her A1c, will hold on glucose checks or starting sliding scale insulin with meals for now. ? Hypertension: Holding home valsartan as noted above. ? Hyperlipidemia: Continue home statin. ? Hypothyroidism: Continue home Synthroid. Total clinical time spent by myself addressing the patient's medical issues, reviewing all the data, and collaborating with patient's care team: 35 minutes. HPI Consult Data Date of Consult: 10/29/24 HPI Narrative Reason for Consultation: Postoperative medical management HPI Narrative: KODI POWELL, is a 68 F who presented to [facility] on 10/28/2024 for planned right knee replacement. Medicine consulted postoperatively for medical management. I saw the patient at bedside this evening. Initial plan was for patient to be discharged home after her right knee replacement today. However, she had some postoperative hypotension and dizziness associated with this and was unable to work with therapy, so decision was made to admit her overnight. She had IV fluids running when I saw her and was feeling improved over the last few hours. She stated the right knee block has not worn off so she had no pain in the knee. She denied any other pain or discomfort. Denied any fevers or chills. No other acute concerns at this time. [facility] Medical History History of chronic diarrhea Cancer History of steroid therapy Heartburn Sleep apnea Shortness of breath on exertion History of stress test History of irregular heartbeat History of Holter monitoring Health care maintenance Tinnitus Elevated liver enzymes Acute hepatitis Dermatitis Right sided abdominal pain Palpitations Laceration of right index finger w/o foreign body w/o damage to nail Use of aromatase inhibitors Obesity Hypothyroidism Type 2 diabetes mellitus Wears glasses Thyroid disease Arthritis High cholesterol Back pain Former smoker Neuropathy Hx of vaginal delivery Prerenal azotemia PORT REMOVED DJD (degenerative joint disease) Dyslipidemia Regional lymph node metastasis present Bilateral malignant neoplasm of breast in female HTN (hypertension) Home Medications ?Medication ?Instructions ?Recorded ?Last Taken ?Type multivitamin 1 cap PO QDAY 11/30/17 Unknown History loratadine 10 mg tablet 10 mg PO DAILY 06/06/21 Unknown History biotin 5,000 mcg-lutein 10 mg 1 tab PO DAILY 04/05/23 Unknown History tablet (Biotin Plus) cholecalciferol (vitamin D3) 125 125 mcg PO DAILY 04/05/23 Unknown History mcg (5,000 unit) tablet melatonin 3 mg tablet 3 mg PO HS PRN sleep 04/05/23 Unknown History Handicap Placard #1 ea 08/01/23 Unknown Rx triamcinolone acetonide 0.1 % 1 applic topical BID PRN 08/13/23 Unknown Rx topical cream Dermatitis #80 grams metoprolol succinate 50 mg See Rx Instructions .Route 11/05/23 10/28/24 Rx tablet,extended release 24 hr .COMPLEX #180 tabs simvastatin 20 mg tablet See Rx Instructions .Route 11/05/23 Unknown Rx .COMPLEX #90 tabs valsartan 40 mg tablet 40 mg PO DAILY #90 tabs 04/28/24 10/28/24 Rx tirzepatide 5 mg/0.5 mL 5 mg (0.5 mL) subcut QWEEK 3 06/13/24 10/14/24 Rx subcutaneous pen injector months #6.5 mL (Mounjaro) metformin 500 mg tablet,extended 500 mg PO BID #180 tabs 06/24/24 Unknown Rx release 24 hr anastrozole 1 mg tablet 1 mg PO DAILY #90 TABLETS 07/21/24 Unknown Rx levothyroxine 88 mcg tablet 88 mcg PO QDAY #90 tabs 07/21/24 10/28/24 Rx blood sugar diagnostic (FreeStyle #200 ea 08/18/24 Unknown Rx Lite Strips) loratadine 10 mg tablet (Claritin) 10 mg PO DAILY 10/10/24 Unknown History acetaminophen 500 mg tablet 1,000 mg (2 x 500 mg) PO Q6H #100 10/28/24 Unknown Rx tabs apixaban 2.5 mg tablet (Eliquis) 2.5 mg PO BID #30 tabs 10/28/24 Unknown Rx cephalexin 500 mg capsule 1,000 mg (2 x 500 mg) PO Q8H #4 10/28/24 Unknown Rx caps oxycodone 5 mg tablet 5 - 10 mg (1 - 2 x 5 mg) PO Q4H 10/28/24 Unknown Rx PRN pain 7 days #60 tabs Allergy/AdvReac Type Severity Reaction Status Date / Time Penicillins Allergy Severe rash Verified 10/28/24 15:29 butalbital (From Fiorinal) AdvReac Severe Vomiting Verified 10/28/24 10:08 codeine AdvReac Severe Vomiting Verified 10/28/24 10:08 Family History Father Diabetes Heart disease Hypertension Cancer prostate and lymph nodes Sister Breast cancer Thyroid disorder Surgical History History of tooth extraction Hx of tubal ligation Hx of tonsillectomy port placement S/P bilateral mastectomy (~12/28/17) S/P colonoscopy S/P appendectomy S/P cholecystectomy S/P tonsillectomy S/P hysterectomy Social History household members: spouse and children housing: house Smoking Status: Former smoker quit date: 09/05/84 second hand exposure: No alcohol intake: never substance use type: does not use erika/gnosticist: [employer] seatbelt use: always do you feel safe at home: Yes ROS Constitutional Constitutional: Reports fatigue; Denies chills, fever(s) or weakness Cardiovascular Cardiovascular: Denies chest pain Respiratory/Chest Respiratory/Chest: Denies shortness of breath at rest Gastrointestinal Gastrointestinal: Denies abdominal pain Musculoskeletal Musculoskeletal: Denies arthralgias, joint pain or myalgias Neurologic Neurologic: Denies dizziness, focal weakness or headache(s) Physical Exam Const alert, oriented x3 and no apparent distress Constitutional Narrative: Pleasant elderly female, class I obesity, mildly fatigued appearing, otherwise laying back comfortably in bed, conversing normally, in no acute distress. General Appearance: cooperative and comfortable HEENT normocephalic, head/scalp atraumatic, hearing grossly normal bilaterally, nasal mucous membranes and turbinates normal and moist oral mucous membranes Eyes PERRL, EOMs intact bilaterally and conjunctivae normal Neck full ROM Chest inspection of chest normal Resp normal respiratory effort, normal air movement, no use of accessory muscles and clear to auscultation bilaterally Cardio regular rate, regular rhythm, no murmurs and peripheral pulses 2+ throughout GI normal to inspection, nondistended, normoactive bowel sounds, soft to palpation, non-tender and non-distended Back/Spine normal ROM Extremity Extremity Narrative: Right knee dressing with Roberto wrap in place. Skin no rashes or lesions noted Neuro moves all extremities and no focal motor deficits Psych mental status grossly normal Lab / Micro Data 10/13/24 11:50 Labs: Laboratory Results - last 24 hr 10/28/24 10:30: POC Glucose 122 H Imaging Radiology Impression Knee X-Ray 10/28/24 15:20 IMPRESSION: No unexpected postsurgical findings. Electronically Signed: Chang Bonilla MD at 16:39 EST Reading Location ID and State: [facility] [place] / [place] Tel , Service support , Charges/Coding Visit Charges Inpatient E&M: 56177 Subs Hosp L2
[2024-10-29 00:17] VITALS: BP 115/63; PULSE 81; RESP 16; TEMP 36.6; O2SAT 98
[2024-10-29] MEDS: Cefazolin 2 GM in Syringe IV ×2 (03:42→11:31)
[2024-10-29 04:08] VITALS: BP 110/65; PULSE 78; RESP 16; TEMP 36.6; O2SAT 97
[2024-10-29] MEDS: Levothyroxine 88 MCG Tablet PO (06:06)
[2024-10-29] MEDS: Acetaminophen 500 MG Tablet 1000 MG PO ×2 (06:06→14:10)
[2024-10-29 06:38] LABS: Anion Gap 5 (5-15); BUN 18 mg/dL (7-18); Calcium,Total 8.4 mg/dL (8.5-10.1); Chloride 108 mmol/L (98-107); EST Glomerular Filtration Rate 58 mL/min (>60); Est Glom Filt Rate - Afr Amer 71 mL/min (>60); Estimated Creatinine Clearance 64.77 ml/min; Glucose 158 mg/dL (74-106); Sodium Level 136 mmol/L (136-145)
[2024-10-29 08:05] VITALS: BP 98/55; PULSE 63; RESP 16; TEMP 36.4; O2SAT 100
[2024-10-29] MEDS: Loratadine 10 MG Tablet PO (08:07)
[2024-10-29] MEDS: Senna/Docusate Sodium 1 Tablet 2 TABLET PO (08:07)
[2024-10-29] MEDS: APIXABAN 2.5 MG TABLET (WCH) PO (08:07)
[2024-10-29 08:29] LABS: Hematocrit 34.7 % (37-47); Hemoglobin 11.1 g/dL (12.0-15.0); Mean Corpuscular Hgb 32.2 pg (27.0-32.0); Mean Corpuscular Volume 100.6 fL (81-99); Platelet Count 163 K/mm3 (150-450); RBC Distribution Width CV 13.2 % (11.6-14.6); RBC Distribution Width SD 48.2 fl (35.1-43.9); Red Blood Count 3.45 M/mm3 (4.2-5.4); White Blood Count 11.7 K/mm3 (4.4-11.0)
--- NOTE | 2024-10-29 09:44 | CASEMGMT ---
TC to [facility] Retail pharmacy, pt cost for eliquis is zero.
--- NOTE | 2024-10-29 10:13 | CASEMGMT ---
Addendum entered by Chan Ordoñez 10/29/24 11:54: Strata: 2 Original Note: RN CM SEBD TEACHER CM?to room to meet with patient for initial transition planning/care coordination assessment. RN ROMAIN?introduced self and role at [facility]. Pt voices understanding and consents to assessment?at this time. Pt sitting up in chair in no distress at this time, in room visiting. Pt is A/O at this time and answers all questions appropriately. Care providers, pharmacy, and demographics verified/updated at this time. PCP: Dr Delarosa Specialists: Dr Barnett. Dermatology Preferred Pharmacy: [facility] Retail @ [place]. Pt has already received her dc medications. Per Deya in the pharmacy, savings card was applied for the Eliquis. [facility]: Yes LNOK: , Tyree. Son, Mitul. Living Arrangements: Lives w/ and adult handicap son in one-story home w/3 steps to enter. Independend prior to surgery. can assist, as needed, @ home. Transportation:?Pt and both drive and they deny having any transportation concerns. DME: States has the following DME: [facility], functioning glucometer w/supplies. Other DME available in the home for son. Pt has been given handout on shower chair by therapy. Pt states no need for further DME at this time. HHC/SNF: No hx of either. Has done OP therapy @ [facility] in the past. Pt wishes to discharge home and go to [facility] for OP therapy. She has 1st appt scheduled for Sunday. will transport. Pt wishes to return home and states has no concerns with going home. PLAN: Home w/OP therapy, spousal support, and discharge plans in place. Guanaco MOORE RN CM
--- NOTE | 2024-10-29 10:42 | PCM.PN.HOSP ---
Reason for Visit Reason for Visit: Diagnoses Other acute postprocedural pain (10/28/24) Postprocedural hypotension (10/28/24) Pain in right knee (10/28/24) Encounter for other preprocedural examination (10/28/24) Subjective Subjective Patient sitting up in bed in no acute distress, no further dizziness or symptoms of low blood pressure Objective Data Objective Data Vital Signs: Vital Signs Temp Pulse Resp BP Pulse Ox O2 Del Method O2 Flow Rate 97.5 F L 63 16 98/55 L 100 Room Air 2 10/29/24 08:05 10/29/24 08:05 10/29/24 08:05 10/29/24 08:05 10/29/24 08:05 10/29/24 08:05 10/28/24 16:15 Oxygen Flow Rate (L/min) 2 Oxygen Delivery Method Room Air Weight: 97.341 kg Body Mass Index (BMI) 32.6 Intake & Output: Intake and Output for Last 24 Hours 10/27/24 10/28/24 10/29/24 23:59 23:59 23:59 Intake Total 1514.33 / 1514.33 1020 / 1020 Balance 1514.33 / 1514.33 1020 / 1020 Lab / Micro Data 10/29/24 08:24 10/29/24 05:58 Labs: Laboratory Results - last 24 hr 10/28/24 10:30: POC Glucose 122 H 10/29/24 05:58: WBC Cancelled, Corrected WBC Cancelled, RBC Cancelled, Hgb Cancelled, Hct Cancelled, MCV Cancelled, MCH Cancelled, MCHC Cancelled, RDW Std Deviation Cancelled, RDW Coeff of Herve Cancelled, Plt Count Cancelled, MPV Cancelled, Diff Path Review Cancelled, Sodium 136, Potassium 5.0, Chloride 108 H, Carbon Dioxide 24.0, Anion Gap 5, BUN 18, Creatinine 1.00, Estim Creat Clear Calc 64.77, Est GFR (MDRD) Af Amer 71, Est GFR (MDRD) Non-Af 58 L, BUN/Creatinine Ratio 18.0, Glucose 158 H, Calcium 8.4 L 10/29/24 08:24: WBC 11.7 H, RBC 3.45 L, Hgb 11.1 L, Hct 34.7 L, MCV 100.6 H, MCH 32.2 H, MCHC 32.0, RDW Std Deviation 48.2 H, RDW Coeff of Herve 13.2, Plt Count 163, MPV 9.0 Micro: Microbiology 10/13/24 11:50 Swab (Method) Nasal Screen MRSA/MSSA - Final Radiography Diagnostic Testing: Radiology Impression Knee X-Ray 10/28/24 15:20 IMPRESSION: No unexpected postsurgical findings. Electronically Signed: Chang Bonilla MD at 16:39 EST , Physical Exam Narrative General: Alert, oriented, no apparent distress HEENT: Atraumatic, normocephalic Eyes: Anicteric, normal conjunctiva, extraocular movements grossly intact Neck: Supple Respiratory: Clear to auscultation bilaterally, normal respiratory effort Cardiovascular: Regular rate and rhythm GI: Soft, nontender, nondistended Extremities: No edema Musculoskeletal: Moving all extremities Neuro: No overt focal neurological deficits Skin: No rashes appreciated Psych: Cooperative Assessment & Plan Assessment/Plan (1) Right knee pain: (2) Postoperative hypotension: PLAN: Plan Patient is a 68-year-old female who presented [facility] on 10/28/2024 for planned right knee replacement. Medicine consulted postoperatively for medical management. 1. Right knee degenerative joint disease ? Orthopedic surgery primary. S/p right total knee arthroplasty with Dr. Gates on 10/28. Patient tolerated procedure well, no intraoperative complications. Did have some postoperative hypotension limiting her ability to work with therapy as noted below. PT/OT/case management following. Likely planning for home with home health care versus outpatient therapy on discharge. Pain management and DVT prophylaxis per orthopedics. -10/29: Management per primary, patient up and tolerating this well, no acute complaints 2. Symptomatic postoperative hypotension, improving ? Patient hypotensive to the 80s over 60s postoperatively and had dizziness/lightheadedness with standing so did not work with therapy after her procedure. Blood pressures improved with IV fluid resuscitation. Follow-up a.m. labs. Will hold home ARB for today. -10/29: A.m. blood pressure 98/55, patient reports at home sometimes her blood pressure is around this as well, she is asymptomatic. She is comfortable discharging home. Would recommend holding losartan and metoprolol, if patient expresses strong desire to continue metoprolol would recommend cutting it in half to 25 twice daily and holding for heart rate less than 60 or systolic blood pressure less than 100 but at time of evaluation she is agreeable to holding these medications and follow-up with primary care physician #DVT ppx: Per primary Parul Munoz MD Charges/Coding Visit Charges Inpatient E&M: 04845 Subs Hosp L1
[2024-10-29 11:15] VITALS: BP 89/53; PULSE 81; RESP 16; TEMP 36.4; O2SAT 98
[2024-10-29] MEDS: 0.9% Saline Lock 10 ML Syringe IV ×2 (11:31→12:28)
[2024-10-29] MEDS: 0.9% Normal Saline (500mL Bag) 500 ML 999 ML IV (12:28)
--- NOTE | 2024-10-29 12:29 | PN.ORTHO_ITS ---
Subjective Subjective Seen and examined doing well pain controlled ambulating well with physical therapy no complaints or concerns denies nausea vomiting shortness of breath or chest pain denies any dizziness or lightheadedness including when ambulating. Objective Data Objective Data Vital Signs: Vital Signs Temp Pulse Resp BP Pulse Ox O2 Del Method O2 Flow Rate 97.6 F L 81 16 89/53 L 98 Room Air 2 10/29/24 11:15 10/29/24 11:15 10/29/24 11:15 10/29/24 11:15 10/29/24 11:15 10/29/24 11:15 10/28/24 16:15 Oxygen Flow Rate (L/min) 2 Oxygen Delivery Method Room Air Weight: 214 lb 9.6 oz Body Mass Index (BMI) 32.6 Intake & Output: Intake and Output for Last 24 Hours 10/27/24 10/28/24 10/29/24 23:59 23:59 23:59 Intake Total 1514.33 / 1514.33 1040 / 1040 Balance 1514.33 / 1514.33 1040 / 1040 Lab / Micro Data 10/29/24 08:24 10/29/24 05:58 Labs: Laboratory Results - last 24 hr 10/29/24 05:58: WBC Cancelled, Corrected WBC Cancelled, RBC Cancelled, Hgb Cancelled, Hct Cancelled, MCV Cancelled, MCH Cancelled, MCHC Cancelled, RDW Std Deviation Cancelled, RDW Coeff of Herve Cancelled, Plt Count Cancelled, MPV Cancelled, Diff Path Review Cancelled, Sodium 136, Potassium 5.0, Chloride 108 H , Carbon Dioxide 24.0, Anion Gap 5, BUN 18, Creatinine 1.00, Estim Creat Clear Calc 64.77, Est GFR (MDRD) Af Amer 71, Est GFR (MDRD) Non-Af 58 L, BUN/Creatinine Ratio 18.0, Glucose 158 H, Calcium 8.4 L 10/29/24 08:24: WBC 11.7 H, RBC 3.45 L, Hgb 11.1 L, Hct 34.7 L, MCV 100.6 H, MCH 32.2 H, MCHC 32.0, RDW Std Deviation 48.2 H, RDW Coeff of Herve 13.2, Plt Count 163, MPV 9.0 Micro: Microbiology 10/13/24 11:50 Swab (Method) Nasal Screen MRSA/MSSA - Final Radiography Diagnostic Testing: Radiology Impression Knee X-Ray 10/28/24 15:20 IMPRESSION: No unexpected postsurgical findings. Electronically Signed: Chang Bonilla MD at 16:39 EST , Physical Exam Const alert, oriented x3 and no apparent distress General Appearance: cooperative Extremity Extremity Narrative: Right knee dressing clean dry intact compartments soft neurovascular intact Assessment & Plan Assessment/Plan (1) S/P total knee arthroplasty: QUALIFIERS: Laterality: right Qualified Code(s): Z96.651 - Presence of right artificial knee joint PLAN: Plan POD #1 right total knee arthroplasty PT OT weightbearing as tolerated Pain control DVT prophylaxis Had some low blood pressures but nonsymptomatic given bolus of fluid as long as pressures increased and stable and asymptomatic will DC home today follow-up in the office 2 weeks.
[2024-10-29] MEDS: oxyCODONE 5 MG Tablet PO (12:44)
[2024-10-29 14:45] VITALS: BP 94/50; PULSE 84; RESP 18; TEMP 36.8; O2SAT 98
== END 2024-10-29 15:14 | disposition home or self-care (01) ==
LOC: SDC 19:12 → MS3 19:12
PROVIDERS: Anesthesiology; Admitting Provider Orthopaedic Surgery; PCP Internal Medicine; Referring Provider Orthopaedic Surgery; Visit Provider Orthopaedic Surgery
PROC: 0SRC0JZ Replacement of Right Knee Joint with Synthetic Substitute, Open Approach (ICD-10-PCS; CPT 27447; principal; 2024-10-28 11:15)
DX: M17.0 Bilateral primary osteoarthritis of knee (principal); E11.40 Type 2 diabetes mellitus with diabetic neuropathy, unspecified; G47.33 Obstructive sleep apnea (adult) (pediatric); Z87.891 Personal history of nicotine dependence; E03.9 Hypothyroidism, unspecified; E78.00 Pure hypercholesterolemia, unspecified; E66.811 Obesity, class 1; Z68.34 Body mass index [BMI] 34.0-34.9, adult; I10 Essential (primary) hypertension; Z79.01 Long term (current) use of anticoagulants; Z79.811 Long term (current) use of aromatase inhibitors; Z79.84 Long term (current) use of oral hypoglycemic drugs; I95.81 Postprocedural hypotension; Z79.85 Long-term (current) use of injectable non-insulin antidiabetic drugs; Z79.899 Other long term (current) drug therapy; Y83.1 Surgical operation with implant of artificial internal device as the cause of abnormal reaction of the patient, or of later complication, without mention of misadventure at the time of the procedure
CPT/HCPCS: 27447; 01402; S2900; 36415; 73560; 80048; 82962; 82985; 83036; 83735; 84443; 85025; 85027; 85610; 85730; 86850; 86900; 86901; 87081; 88305; 88311; 96361; 96374; 96376; 97162; 97166; 99221; C1776; A4216; G0378; J2405

== ENCOUNTER 2024-12-19 10:00 | Outpatient (RCR) | payer MEDICARE, OTHER, SELFPAY ==
[2018-08-15 08:02] VITALS: BMI 39.4
--- NOTE | 2024-09-24 09:56 | HP.PTEVAL_ITS ---
Patient's Visit Information Visit Information Visit Information: KODI POWELL is a 68 year old F referred to Physical Therapy by Dr. Florencio aGtes DO with a diagnosis of B knee OA. Date of Evaluation: 09/24/24 Physical Therapist: Torsten Cali, PT, ATC Visit Plan Frequency: 2x /Week Duration: 4-6 Weeks Plan: Pt to have surgery 10/28/23 for RTKA B knee stretching and strengthening, balance and proprio, core strengthening, nustep, and HEP Subjective Subjective: Pt reports a chronic period of B knee pain. Pt reports the pain has progressively worsened over the past 3 years. Pt reports she has had x-rays recently which revealed both knees are bone on bone. Pt reports she has had multiple cortisone injections in her knees which helped temporarily. Pt notes she had gel injections in the R knee which helped for 2 months, but notes the pain in both knees returned and she is very sore today. Pt reports she is here for prehab today secondary to having tentatively scheduled her R TKA for 10/28/24. Pt reports her knee pain limits her with all activity. Pt notes difficulty with all sit to stand transfers, and she is unable to perform prolonged ambulation secondary to pain. Pt reports she is afraid she is going to fall secondary to weakness and knees giving out. Pt has numbness in her feet from neuropathy. Pt has 2 stairs to enter her house which she has to negotiate one step at a time. Sleep difficulty secondary to pain. 4/10 pain at rest, 9/10 pain at worst. Pain B knees: Pain Intensity (Out of 10): 4 Pain Intensity Range: 9 Objective Objective: Neuro: B LE sensation is WNL to light touch Palpation: Pt is sore along medial joint line. Severe crepitus with AROM ROM: R knee 0-20-110, L knee 0-15-115 MMT: R knee flex= 5, ext= 7 #F; L knee flex= 12, ext= 16 #F TU sec Balance/Special Test Scores Lower Extremity Functional Score: 31 Goals Goal 1:: Decrease B knee pain x 50% to aid with sleep Goal Time Frame: 4-6 Weeks Goal 2:: Increase B knee strength x 5#F to aid with stair negotiation Goal Time Frame: 4-6 Weeks Goal 3:: Pt will perform the TUG test in under 15 seconds to aid with community mobility Goal Time Frame: 4-6 Weeks Goal 4:: I with HEP Goal Time Frame: 4-6 Weeks Rehabilitation Potential Physical Therapy Diagnosis: Pt has B knee pain, weakness, and limited ROM secondary to B knee OA Rehabilitation Potential: Good Anticipated Interventions Patient/Client Instruction: Educate patient on: Condition and Plan of Care For the Purpose of:: To improve self management Therapeutic Exercise to Include: Strength training, Endurance training, Balance training, Flexibilty training and Dynamic Lumbar Stabilization For the Purpose of:: To decrease pain, To increase ROM and To improve muscle p erformance and motor function Text: Thank you for the opportunity to evaluate your patient. For Medicare and Medicare HMO plans, please review the plan of care and approve it. It will need to be FAXED BACK to us at [phone] for Medicare purposes. For Medicare only, by signing this I certify the plan of care. Please let me know if there are questions or concerns regarding this plan of care. Physician Signature: Date:
--- NOTE | 2024-10-20 11:56 | HP.PTREVAL ---
Re-Evaluation Intro: Dr. Florencio Gates, DO, It has been my pleasure to treat KODI POWELL over the last 9 visits for B knee OA. Please see the progress note below for an update on the physical therapy plan of care! Subjective Subjective: Pt is scheduled for R TKA 10/28/24. Pt reports she feels stronger, but the pain is the same Objective Objective/Function: R knee pain 04/30 R knee ROM: 0-10-102 degrees R knee MMT: flex= 12, ext= 10 #F Pt has improved strength and ROM at this time Plan Plan Plan: Reassess post surgery on 10/31/24 Balance/Gait/Functional tests Balance/Special Test Scores Lower Extremity Functional Score: 33 Goals Goals Goal 1:: Decrease B knee pain x 50% to aid with sleep Goal Time Frame: 4-6 Weeks Goal Progress: Not Progressing Goal 2:: Increase B knee strength x 5#F to aid with stair negotiation Goal Time Frame: 4-6 Weeks Goal Progress: Goal Met Goal 3:: Pt will perform the TUG test in under 15 seconds to aid with community mobility Goal Time Frame: 4-6 Weeks Goal 4:: I with HEP Goal Time Frame: 4-6 Weeks Goal Progress: Goal Met Anticipated Interventions Anticipated Interventions Patient/Client Instruction: Educate patient on: Condition and Plan of Care For the Purpose of:: To improve self management Therapeutic Exercise to Include: Strength training, Endurance training, Balance training, Flexibilty training and Dynamic Lumbar Stabilization For the Purpose of:: To decrease pain, To increase ROM and To improve muscle performance and motor function Re-Evaluation Ending Re-evaluation ending: Please do not hesitate to contact me at [phone] by phone or if you have questions or concerns regarding this new plan of care! Sincerely, Torsten Cali, PT, ATC
--- NOTE | 2024-10-31 13:54 | HP.PTREVAL_ITS ---
Re-Evaluation Intro: Dr. Florencio Gates, DO, It has been my pleasure to treat KODI POWELL over the last 10 visits for R TKA 10/28/24. Please see the progress note below for an update on the physical therapy plan of care! Subjective Subjective: Pt reports she is in a lot of pain today. Pt notes she had a R TKA performed at that time. Pt reports she is having sleep difficulty at thsi time secondary to pain. Pt notes she is taking pain meds and performing HEP. Pt enter s clinic with [facility] today. Objective Objective/Function: R knee ROM: 0-25-77 degrees R knee MMT: flex= 7, ext= 6 #F TUG= 57 sec Plan Plan Plan: 10/31/24- R knee PROM/mobs, stretching and strengthening, balance and proprio, nustep, and HEP Balance/Gait/Functional tests Balance/Special Test Scores Lower Extremity Functional Score: 10 Goals Goals Goal 1:: Decrease B knee pain x 50% to aid with sleep Goal Time Frame: 4-6 Weeks Goal Progress: Not Progressing Goal 2:: Increase B knee strength x 15#F to aid with stair negotiation Goal Time Frame: 4-6 Weeks Goal Progress: Goal Met Goal 3:: Pt will perform the TUG test in under 20 seconds to aid with community mobility Goal Time Frame: 4-6 Weeks Goal 4:: I with HEP Goal Time Frame: 4-6 Weeks Goal Progress: Goal Met Anticipated Interventions Anticipated Interventions Patient/Client Instruction: Educate patient on: Condition and Plan of Care For the Purpose of:: To improve self management Therapeutic Exercise to Include: Strength training, Endurance training, Balance training, Flexibilty training and Dynamic Lumbar Stabilization For the Purpose of:: To decrease pain, To increase ROM and To improve muscle performance and motor function Re-Evaluation Ending Re-evaluation ending: Please do not hesitate to contact me at [phone] by phone or if you have questions or concerns regarding this new plan of care! Sincerely, Torsten Cali, PT, ATC
--- NOTE | 2024-12-19 10:29 | HP.PTDCSUM ---
Discharge Summary D/C summary: It has been my pleasure to treat KODI POWELL referred by Dr. Florencio Gates DO, with the diagnosis of R TKA 10/28/24 for a total of 31 visit(s). Discharge Date: Please see the following information for a summary of their discharge status. Subjective Subjective: I think I am ready to be done Pain B knees: Pain Intensity (Out of 10): 0 Overall Improvement % Improvement: 95 Objective Objective/Function: R knee pain 1/10, increases to 4/10 at worst R knee ROM: 0-5-115 degrees R knee MMT: flex= 19, ext= 32 #F Pt is I with HEP Goals Goal 1:: Decrease B knee pain x 50% to aid with sleep Goal Progress: Goal Met Goal 2:: Increase B knee strength x 15#F to aid with stair negotiation Goal Progress: Goal Met Goal 3:: Pt will perform the TUG test in under 20 seconds to aid with community mobility Goal 4:: I with HEP Goal Progress: Goal Met Plan Plan: Discharge to HEP D/C Information d/c sentence: If there are questions or concerns regarding this patient's physical therapy, please feel free to call me at [phone]. Thank you for the referral of this patient. Sincerely, Torsten Cali, PT, ATC Balance/Gait/Functional tests Balance/Special Test Scores Lower Extremity Functional Score: 64 Improvement % Improvement: 95
== END 2024-12-19 19:00 | disposition home or self-care (01) ==
LOC: PT 10:00
PROVIDERS: PCP Internal Medicine; Referring Provider Orthopaedic Surgery; Visit Provider Orthopaedic Surgery
DX: M17.0 Bilateral primary osteoarthritis of knee (principal)
CPT/HCPCS: 97110; 97140; 97161; 97530

== ENCOUNTER → 2025-01-05 | Outpatient (CLI) | payer MEDICARE, OTHER, SELFPAY ==
[2018-08-15 08:02] VITALS: BMI 39.4
[2025-01-05 15:38] LABS: Basophil# 0.05 X10^3/uL; Basophil% 0.6 % (0-1); Eosinophil# 0.42 X10^3/uL; Eosinophils% 5.4 % (0-5); Hematocrit 43.8 % (37-47); Hemoglobin 13.9 g/dL (12.0-15.0); Lymphocyte % 21.9 % (19-41); Mean Corp Hgb Conc 31.7 g/dL (32-36); Mean Corpuscular Hgb 31.2 pg (27.0-32.0); Mean Corpuscular Volume 98.2 fL (81-99); Mean Platelet Vol. 9.7 fl (6.2-12.0); Monocyte# 0.58 X10^3/uL; Monocyte% 7.5 % (0-10); NRBC Flagged by Analyzer 0 % (0-5); Neutrophil # 4.98 X10^3/uL (2.7-7.7); Neutrophil % 64.3 % (47-70); Platelet Count 245 K/mm3 (150-450); RBC Distribution Width CV 12.9 % (11.6-14.6); RBC Distribution Width SD 46.2 fl (35.1-43.9); Red Blood Count 4.46 M/mm3 (4.2-5.4); White Blood Count 7.8 K/mm3 (4.4-11.0)
== END | disposition home or self-care (01) ==
LOC: BIMLAB 11:49
PROVIDERS: PCP Internal Medicine; Referring Provider Internal Medicine; Visit Provider Internal Medicine
DX: I10 Essential (primary) hypertension (principal)
CPT/HCPCS: 36415; 85025

== ENCOUNTER → 2025-01-09 | Outpatient (CLI) | payer MEDICARE, OTHER, SELFPAY ==
[2018-08-15 08:02] VITALS: BMI 39.4
--- NOTE | 2025-01-09 17:07 | STRESSREP ---
Stress Test Report Pharmacologic myocardial perfusion stress test. 69-year-old lady with a history of chest pain and palpitations Resting EKG demonstrates sinus rhythm with a rate of 82 bpm. Resting blood pressure is 138/82 mmHg. 0.4 mg of regadenoson was infused per usual protocol followed by rapid intravenous saline flush injection. Continuous EKG monitoring was performed. The maximum heart rate was 112 bpm which was 74% of max impacted heart rate the maximum workload was 1 metabolic equivalent. At rest there were no ST or T wave changes noted to suggest ischemia and at peak infusion nonspecific ST changes were noted which did not meet the criteria for ischemia. No clinical angina is noted. The final blood pressure was 118/70 mmHg. Myocardial perfusion protocol. 14 point mCi of technetium 99m sestamibi was injected at rest. 0.4 mg of regadenoson was infused per usual protocol. At peak infusion 45 mCi of technetium 99m sestamibi was injected stress images were obtained stress and rest images were reconstructed and compared in the short axis vertical long and horizontal long axis. Gated images were also obtained. Perfusion SPECT analysis: Review of the stress images demonstrate normal uptake of tracer noted in all areas of the myocardium. The resting images similar demonstrated normal uptake of tracer noted in all areas of the myocardium. No areas of reversibility are noted to suggest ischemia and no previous infarct is noted. Gated SPECT analysis: The gated ejection fraction is 78%. Conclusion: Normal pharmacologic myocardial perfusion stress test. Preserved ejection fraction.
== END | disposition home or self-care (01) ==
LOC: CVS 06:02
PROVIDERS: PCP Internal Medicine; Referring Provider Internal Medicine; Visit Provider Internal Medicine
DX: R94.31 Abnormal electrocardiogram [ECG] [EKG] (principal); R00.2 Palpitations; R55 Syncope and collapse; R07.89 Other chest pain
CPT/HCPCS: 78452; 93017; A9500; A4216; J2785

== ENCOUNTER → 2025-02-10 | Outpatient (CLI) | payer MEDICARE, OTHER, SELFPAY ==
[2018-08-15 08:02] VITALS: BMI 39.4
[2025-01-30 10:45] VITALS: BMI 39.4
[2025-02-10 09:19] LABS: Absolute Lymphocyte Count 1.91 X10^3/uL (0.83-4.51); Absolute Neutrophil Count 3.2 X10^3/uL (2.0-7.7); Basophil# 0.08 X10^3/uL; Basophil% 1.2 % (0-1); Eosinophil# 0.61 X10^3/uL; Eosinophils% 9.5 % (0-5); Hematocrit 38.8 % (37-47); Hemoglobin 12.8 g/dL (12.0-15.0); Lymphocyte # 1.91 X10^3/ul (0.83-4.51); Lymphocyte % 29.8 % (19-41); Mean Corpuscular Hgb 30.9 pg (27.0-32.0); Mean Corpuscular Volume 93.7 fL (81-99); Mean Platelet Vol. 9.1 fl (6.2-12.0); Monocyte# 0.58 X10^3/uL; NRBC Flagged by Analyzer 0 % (0-5); Neutrophil # 3.22 X10^3/uL (2.7-7.7); Neutrophil % 50.2 % (47-70); Platelet Count 189 K/mm3 (150-450); RBC Distribution Width CV 13.2 % (11.6-14.6); RBC Distribution Width SD 45.1 fl (35.1-43.9); Red Blood Count 4.14 M/mm3 (4.2-5.4); White Blood Count 6.4 K/mm3 (4.4-11.0)
[2025-02-10 10:38] LABS: Anion Gap 13 (5-15); BUN 24 mg/dL (4-19); BUN/Creat Ratio 21.8 RATIO (10-20); Calcium,Total 9.6 mg/dL (7.6-11.0); Carbon Dioxide 23.6 mmol/L (21.0-32.0); Chloride 105 mmol/L (98-108); Creatinine, Serum 1.08 mg/dL (0.70-1.20); EST Glomerular Filtration Rate 55 (>60); Glucose 114 mg/dL (70-99); Potassium 4.3 mmol/L (3.3-5.1); Sodium Level 141 mmol/L (133-145)
--- NOTE | 2025-02-10 17:51 | PCM.TILTTABL ---
Staff Staff: Meenu Yap and Adina Granger Summary Pre Test Resting HR: 93 Pre Test Resting BP: 123/71 Minimum Test HR: 91 Maximum Test HR: 100 Minimum Test BP: 99/80 Maximum Test BP: 123/71 Reason for Test Termination: Reached Maximum Test Time Physician Tilt Table Report Patient's Physicians Primary Care Physician: Qi Delarosa [facility] Nurse Practitioner: Pedro Ahuja Indications/Diagnosis: Syncope and dizziness Procedure Comments: Patient was brought to the noninvasive lab in the postabsorptive nonsedated state. Informed consent was obtained. Resting EKG demonstrated sinus rhythm with a rate of 86 bpm resting blood pressure was 113/86 mmHg. The patient was then placed in the 70 degree head upright tilt position for total duration of 30 minutes. Continuous EKG and blood pressure monitoring as well as heart rate were undertaken. The patient complained of slight dizziness when she was stood up but her heart rate and blood pressure remained fairly stable. She was minimally symptomatic for the entire 30 minutes with no significant hemodynamic changes. The test was concluded after the patient was brought back to the recumbent position. Summary: Negative head upright tilt test with no significant changes.
[2025-02-10 17:54] VITALS: BP 123/71; BP 99/80
== END | disposition home or self-care (01) ==
PROVIDERS: PCP Internal Medicine; Referring Provider Internal Medicine; Visit Provider Internal Medicine
DX: D64.9 Anemia, unspecified (principal); E11.69 Type 2 diabetes mellitus with other specified complication; R55 Syncope and collapse
CPT/HCPCS: 80048; 85025; 93660; A4216

== ENCOUNTER → 2025-10-12 | Outpatient (CLI) | payer MEDICARE, OTHER, SELFPAY ==
[2025-01-30 10:45] VITALS: BMI 39.4
[2025-10-12 12:08] LABS: Hematocrit 44.4 % (37-47); Hemoglobin 14.6 g/dL (12.0-15.0); Immature Granulocytes Count 0.010 X10^3/uL (0.0-0.0); Mean Corp Hgb Conc 32.9 g/dL (32-36); Mean Corpuscular Volume 98.0 fL (81-99); Mean Platelet Vol. 9.5 fl (6.2-12.0); NRBC Flagged by Analyzer 0 % (0-5); Platelet Count 186 K/mm3 (150-450); RBC Distribution Width CV 12.8 % (11.6-14.6); RBC Distribution Width SD 46.0 fl (35.1-43.9); Red Blood Count 4.53 M/mm3 (4.2-5.4); White Blood Count 5.4 K/mm3 (4.4-11.0)
[2025-10-12 13:01] LABS: Creatinine, Urine (random) 185.00 mg/dL (28.00-217.00); Microalbumin,Random Urine < 12.0 mg/L (<20 mg/L)
[2025-10-12 15:56] LABS: AST(SGOT) 29 U/L (<=31); Alanine Aminotransfer ALT/SGPT 25 U/L (<=34); Albumin, Serum 4.4 g/dL (3.4-4.8); Alkaline Phosphatase 65 U/L (35-104); Anion Gap 12 (7-18); BUN 21 mg/dL (4-19); BUN/Creat Ratio 22.3 RATIO (10-20); Calcium,Total 10.1 mg/dL (7.6-11.0); Carbon Dioxide 26.2 mmol/L (20.0-29.0); Chloride 102 mmol/L (96-106); Globulin 2.9 g/dL (2.2-4.2); Glucose 104 mg/dL (70-99); Potassium 4.4 mmol/L (3.5-5.1)
== END | disposition home or self-care (01) ==
LOC: MTLAB 10:47
PROVIDERS: PCP Internal Medicine; Referring Provider Internal Medicine; Visit Provider Internal Medicine
DX: K21.9 Gastro-esophageal reflux disease without esophagitis (principal); E11.69 Type 2 diabetes mellitus with other specified complication; E03.9 Hypothyroidism, unspecified; D64.9 Anemia, unspecified
CPT/HCPCS: 36415; 80053; 82043; 82570; 83036; 84443; 85025